=== PATIENT | female | born 1940 | race Caucasian/White ===

== ENCOUNTER 2023-04-04 13:10 | Outpatient (CLI) | payer MEDICARE, BC, SELFPAY | END 2023-04-04 13:11 | disposition home or self-care (01) | LOC: NFLDREF 04-06 10:20 | PROVIDERS: PCP Internal Medicine; Referring Provider Internal Medicine; Visit Provider Internal Medicine | DX: E83.110 Hereditary hemochromatosis (principal) | CPT/HCPCS: 80076; 82728 ==

== ENCOUNTER 2024-02-13 10:45 | Outpatient (CLI) | payer MEDICARE, BC, SELFPAY | END 2024-02-13 10:46 | disposition home or self-care (01) | LOC: NFLDREF 15:11 | PROVIDERS: PCP Internal Medicine; Referring Provider Internal Medicine; Visit Provider Internal Medicine | DX: E83.110 Hereditary hemochromatosis (principal) | CPT/HCPCS: 80053; 82728 ==

== ENCOUNTER 2024-05-01 11:32 | Outpatient (REF) | payer MEDICARE, BC, SELFPAY ==
[2024-05-01 13:58] LABS: Basophils Absolute Auto 0.02 K/uL (0.00-0.30); Basophils Percent Auto 0.3 % (0.0-3.0); Eosinophils Absolute Auto 0.15 K/uL (0.00-0.50); Eosinophils Percent Auto 2.3 % (0.0-7.0); Hematocrit 38.8 % (33.0-51.0); Hemoglobin* 12.8 gm/dL (12.0-16.0); Immature Granulocytes Abs Auto 0.03 K/uL (0.00-0.30); Immature Granulocytes Pct Auto 0.5 %; Lymphocytes Absolute Auto 1.33 K/uL (0.90-2.90); Lymphocytes Percent Auto 20.2 % (20-44); Mean Corpuscular HGB Conc 33 gm/dL (32-36); Mean Corpuscular Hemoglobin 35 pg (26-34); Mean Corpuscular Volume 105 fL (80-100); Neutrophils Absolute Auto 4.47 K/uL (1.7-7.0); Neutrophils Percent Auto 67.7 % (42.0-72.0); Platelet Count* 257 K/uL (140-440); RDW Coefficient of Variation % 12.2 % (11.5-15.5); White Blood Count* 6.59 K/uL (4.50-11.00)
[2024-05-01 14:01] LABS: Slide Review Reflex No
[2024-05-01 14:18] LABS: Iron* 150 ug/dL (37-170)
== END 2024-05-01 11:33 | disposition home or self-care (01) ==
LOC: NPINS 11:32
PROVIDERS: PCP Internal Medicine; Visit Provider Nurse Practitioner Gerontology
DX: D64.9 Anemia, unspecified (principal)
CPT/HCPCS: 82728; 83540; 85025

== ENCOUNTER 2024-07-10 11:54 | Outpatient (REF) | payer MEDICARE, BC, SELFPAY ==
[2024-07-10 13:00] LABS: Basophils Absolute Auto 0.02 K/uL (0.00-0.30); Basophils Percent Auto 0.4 % (0.0-3.0); Eosinophils Absolute Auto 0.29 K/uL (0.00-0.50); Eosinophils Percent Auto 5.7 % (0.0-7.0); Hematocrit 39.3 % (33.0-51.0); Hemoglobin* 12.6 gm/dL (12.0-16.0); Immature Granulocytes Abs Auto 0.02 K/uL (0.00-0.30); Immature Granulocytes Pct Auto 0.4 %; Lymphocytes Absolute Auto 1.14 K/uL (0.90-2.90); Lymphocytes Percent Auto 22.4 % (20-44); Mean Corpuscular HGB Conc 32 gm/dL (32-36); Mean Corpuscular Hemoglobin 34 pg (26-34); Mean Corpuscular Volume 107 fL (80-100); Monocytes Percent Auto 14.3 % (0.0-11.0); Neutrophils Absolute Auto 2.89 K/uL (1.7-7.0); Neutrophils Percent Auto 56.8 % (42.0-72.0); Platelet Count* 286 K/uL (140-440); Red Blood Count 3.69 m/uL (4.00-5.20); White Blood Count* 5.09 K/uL (4.50-11.00)
[2024-07-10 13:03] LABS: Slide Review Reflex No
== END 2024-07-10 11:55 | disposition home or self-care (01) ==
LOC: NPINS 11:54
PROVIDERS: Visit Provider Family Medicine
DX: E83.119 Hemochromatosis, unspecified (principal)
CPT/HCPCS: 85025

== ENCOUNTER 2024-08-10 09:29 | Outpatient (REF) | payer MEDICARE, BC, SELFPAY ==
[2024-08-10 09:51] LABS: Appearance Urine Clear (Clear); Bilirubin Urine Negative (Negative); Blood Urine Trace-intact (Negative); Color Urine Yellow (Yellow); Glucose Urine Negative (Negative); Ketones Urine Negative (Negative); Leukocyte Esterase Urine 2+ (Negative); Nitrite Urine Positive (Negative); Protein Urine Negative (Negative); Urobilinogen Urine 0.2 (0.2-1.0)
[2024-08-10 10:04] LABS: Bacteria Urine Many; RBC Urine 0-2 (0-2); Squamous Epithelial Cell Urine Few (None-Few)
== END 2024-08-10 09:30 | disposition home or self-care (01) ==
LOC: NPINS 09:29
PROVIDERS: Visit Provider Nurse Practitioner Gerontology
DX: R68.89 Other general symptoms and signs (principal)
CPT/HCPCS: 81001; 87086; 87186

== ENCOUNTER 2024-11-19 11:03 | Outpatient (CLI) | payer MEDICARE, BC, SELFPAY | END 2024-11-19 11:04 | disposition home or self-care (01) | LOC: AMB 11-20 10:44 | PROVIDERS: Visit Provider Student in an Organized Health Care Education/Training Program | DX: S79.912A Unspecified injury of left hip, initial encounter (principal); W01.198A Fall on same level from slipping, tripping and stumbling with subsequent striking against other object, initial encounter; Y92.009 Unspecified place in unspecified non-institutional (private) residence as the place of occurrence of the external cause | CPT/HCPCS: A0425; A0429 ==

== ENCOUNTER 2024-11-19 11:28 | Inpatient (IN) | payer MEDICARE, BC, SELFPAY ==
[2024-11-19] VITALS (22 sets, daily range): BP systolic 101–188; BP diastolic 68–97; PULSE 57–68; RESP 12–33; TEMP 36.4–36.6; O2SAT 84–100; BMI 25.9
--- NOTE | 2024-11-19 | CRLHL7_ITS ---
For Patients: As a result of the Century Cures Act, medical imaging exams and procedure reports are released immediately into your electronic medical record. You may view this report before your referring provider. If you have questions, please contact your health care provider. INDICATION: Cough. Fall. TECHNIQUE: Chest 1 views. No acute abnormalities COMPARISON: None FINDINGS: Limitations: Underpenetrated Tubes and devices: None. Lungs: Lungs are clear. Prominent bronchovascular markings possibly due to under penetration. No infiltrates. Pleura: No pleural effusion. No pneumothorax. Heart: Heart size and vasculature are normal in caliber and appearance. Karin and Mediastinum: No enlargement. Bones and soft tissues: No significant findings. IMPRESSION: Suboptimal technique. No infiltrate or mass. Dictated by Derrick Rodriguez MD @ 11/19/2024 12:45:31 PM (Electronically Signed)
--- NOTE | 2024-11-19 11:33 | ED_ITS ---
HPI - General Adult General Date Seen: 11/19/24 Chief complaint: Extremity Pain/Injury, Lower Stated complaint: leg pain Time Seen by Provider: 11/19/24 11:33 History of Present Illness HPI narrative: This is a pleasant 84-year-old female brought to the ER this morning by EMS from her memory care you for evaluation of right thumb leg and thigh and hip pain. History from paramedics is that she was sleeping in a chair. She woke up kind of abruptly and tried to get up. She lost her balance when she stood up and then fell onto her right side. Most of her weight went onto her right hip but she also probably did hit her head. She denies loss of consciousness or headache. She was not able to get up due to severe right hip and leg pain so 911 was called. EMS does not note any obvious deformity or foreshortening or rotation of her leg. No obvious crepitus. Vitals were stable. Patient is not anticoagulated. EMS established an IV in her left AC but have not had time to administer any meds yet. Her son is aware and will be coming here to the ER. He is actually a doctor at the [facility], Dr. Mike. 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 She is on medications for but does not know the name. She does not know what other meds she is on. 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 Med list includes aspirin 81 mg, lisinopril, citalopram, estradiol cream, psyllium, per type pain. No other anticoagulant. History from the patient is that she fell. She is having lot of pain in her right leg. She does not want to move it. She does not think she fainted. She remembers falling. She thinks she just lost her balance. She is not able to recall her meds. She know she has a patch on she thinks is for hemochromatosis Related Data Home Medications ?Medication ?Instructions ?Recorded ?Confirmed aspirin 81 mg tablet,delayed 162 mg PO DAILY 03/22/22 02/24/24 release psyllium husk 3.4 gram/5.4 gram 1 tbsp PO QDAY 10/08/22 02/24/24 oral powder (Metamucil) Previous Rx's ?Medication ?Instructions ?Recorded estradiol 0.01% (0.1 mg/gram) 0.5 g vaginal 2XW #42.5 grams 07/27/23 vaginal cream (Estrace) citalopram 20 mg tablet 20 mg PO DAILY #90 tabs 02/14/24 lisinopril 40 mg tablet 40 mg PO QDAY #90 tabs 02/14/24 quetiapine 25 mg tablet (Seroquel) 12.5 mg (1/2 x 25 mg) PO QAM #60 02/14/24 tabs Allergies Allergy/AdvReac Type Severity Reaction Status Date / Time No Known Allergies Allergy Unknown Verified 11/19/24 11:38 PFSH PFS Surgical History (Updated 03/03/22 @ 13:20 by Ambika Lira) History of total abdominal hysterectomy and bilateral salpingo-oophorectomy ?Z90.710 - Acquired absence of both cervix and uterus (ICD-10) ?Z90.722 - Acquired absence of ovaries, bilateral (ICD-10) ?Z90.79 - Acquired absence of other genital organ(s) (ICD-10) History of cholecystectomy ?Z90.49 - Acquired absence of other specified parts of digestive tract (ICD- 10) Social History (Updated 02/13/24 @ 08:59 by Sheila Varela ~ [facility]) What is your current living situation?: I presently have a place to live Problems where you live: no known problems In the past 12 months, utilities in danger of being shut off: no In past 12 months, lack of transportation kept you from medical appts, meetings, work, or getting things needed for daily living: no In the past 12 mos, have been you worried that your food would run out before you had money to buy more?: never true In the past 12 mos, the food you bought just didn't last and you didn't have money to buy more?: never true Smoking Status: Former smoker How often do you have a drink containing alcohol: never How often do you have six or more drinks on one occasion: Never AUDIT-C Alcohol total score: 0 Non-prescribed substance use: denies use How often does anyone, including family, friends and others, physically hurt you : never How often does anyone, including family, friends and others, insult or talk down to you: never How often does anyone, including family, friends and others, threaten you with harm: never How often does anyone, including family, friends and others, scream or curse at you: never service: No Exam Const: Vital Signs, click to edit/add: Vital Signs - 24 hr 11/19/24 11:34 11/19/24 12:24 11/19/24 12:30 Temperature 97.8 F Pulse Rate 58 L 57 L Pulse Rate [Right Pulse Oximeter] 63 Respiratory Rate 18 Blood Pressure Blood Pressure [Ri ght Upper Arm] 173/82 H Pulse Oximetry 96 98 99 Oxygen Delivery Me thod Room Air 11/19/24 12:33 Temperature Pulse Rate 59 L Pulse Rate [Right Pulse Oximeter] Respiratory Rate Blood Pressure 173/82 H Blood Pressure [Ri ght Upper Arm] Pulse Oximetry 99 Oxygen Delivery Me thod Course Vital Signs Vital signs: Initial Vital Signs Temperature 97.8 F 11/19/24 11:34 Temperature Source Temporal Artery Scan 11/19/24 11:34 Pulse Rate 63 11/19/24 11:34 Pulse Rhythm Regular 11/19/24 11:34 Pulse Strength 3+ Normal 11/19/24 11:34 Respiratory Rate 18 11/19/24 11:34 Blood Pressure 173/82 H 11/19/24 11:34 Blood Pressure Mean 112 H 11/19/24 11:34 Blood Pressure Position Supine 11/19/24 11:34 Pulse Oximetry 96 11/19/24 11:34 Oxygen Delivery Method Room Air 11/19/24 11:34 Vital Signs Temperature 97.8 F 11/19/24 11:34 Pulse Rate 63 11/19/24 11:34 Respiratory Rate 18 11/19/24 11:34 Blood Pressure 173/82 H 11/19/24 11:34 Pulse Oximetry 96 11/19/24 11:34 Oxygen Delivery Method Room Air 11/19/24 11:34 Temperature 97.8 F 11/19/24 11:34 Pulse Rate 59 L 11/19/24 12:33 Respiratory Rate 18 11/19/24 11:34 Blood Pressure 173/82 H 11/19/24 12:33 Pulse Oximetry 99 11/19/24 12:33 Oxygen Delivery Method Room Air 11/19/24 11:34 Medications Administered Medications: Generic Name Dose Route Start Last Admin Trade Name Brenda PRN Reason Stop Dose Admin Hydromorphone HCl 0.5 mg 11/19/24 12:43 11/19/24 12:50 Hydromorphone 0.5 Mg/0.5 Ml Inj IVP 0.5 mg Q1H PRN Administration Pain Discontinued Medications Generic Name Dose Route Start Last Admin Trade Name Brenda PRN Reason Stop Dose Admin Fentanyl 50 mcg 11/19/24 11:37 11/19/24 11:49 Fentanyl 100 Mcg/2 Ml Inj IVP 11/19/24 11:38 50 mcg ONCE ONE Administration Ondansetron HCl 4 mg 11/19/24 11:37 11/19/24 11:49 Ondansetron 2 Mg/Ml Inj IVP 11/19/24 11:38 4 mg ONCE ONE Administration Medical Decision Making MDM Narrative Medical decision making narrative: Very pleasant 84-year-old female brought to the ER today from [facility] for evaluation of a mechanical ground level fall with right leg pain. On clinical exam she really is having primarily right hip and proximal femur pain. She may have also hit her head during the fall. 1. CT head and C-spine are normal. No evidence for any acute traumatic injury. She is not anticoagulated. 2. X-rays of her pelvis and right hip confirm a nondisplaced intertrochanteric fracture affecting the right proximal femur. She was quite uncomfortable when she arrived by EMS. We administered 50 mcg IV prior to obtaining x-rays and Dilaudid for additional analgesia there after. She is more comfortable now. Discussed with orthopedics, Dr. Ko. He will agree to consult on the patient and plans for operative fixation likely tomorrow morning. Discussed with hospitalist, Dr. Salinas who graciously agreed to admit for pain control and medical management and overnight care prior to going to the OR. Also place consult for anesthesia to consider local nerve block for analgesia. 3. EKG shows sinus rhythm. No ischemia. Labs showed normal hemoglobin, normal white count, normal platelet count. Electrolytes and kidney function normal. Her son, Jn Mike, updated by phone. He will be coming over to see her this afternoon when he finishes up this afternoon clinic. Lab Data Labs: Lab Results 11/19/24 Range/Units 12:41 WBC 7.33 (4.50-11.00) K/uL RBC 3.74 L (4.00-5.20) m/uL Hgb 13.0 (12.0-16.0) gm/dL Hct 38.4 (33.0-51.0) % MCV 103 H (80-100) fL MCH 35 H (26-34) pg MCHC 34 (32-36) gm/dL RDW Coeff of Michael 12.6 (11.5-15.5) % Plt Count 300 (140-440) K/uL Neut % (Auto) 72.7 H (42.0-72.0) % Lymph % (Auto) 15.6 L (20-44) % [place] % (Auto) 8.7 (0.0-11.0) % Eos % (Auto) 2.5 (0.0-7.0) % Baso % (Auto) 0.1 (0.0-3.0) % Neut # (Auto) 5.30 (1.7-7.0) K/uL Lymph # (Auto) 1.10 (0.90-2.90) K/uL [place] # (Auto) 0.60 (0.00-0.90) K/UL Eos # (Auto) 0.18 (0.00-0.50) K/uL Baso # (Auto) 0.01 (0.00-0.30) K/uL Abs Immat Gran (auto) 0.03 (0.00-0.30) K/uL Imm/Tot Granulo (auto) 0.4 % Sodium 132 L (135-149) mmol/L Potassium 4.8 (3.6-5.1) mmol/L Chloride 101 (96-114) mmol/L Carbon Dioxide 21 (20-32) mmol/L Anion Gap 10 (7-15) mEq/L BUN 23 (7-30) mg/dL Creatinine 0.9 (0.5-1.5) mg/dL Estimated GFR 64 ml/min Glucose 108 (60-115) mg/dL Calcium 9.8 (8.4-10.6) mg/dL Imaging Data XR R hip/pelvis: Attestation: I have reviewed the pertinent imaging results. My impression: Inter trochanteric fracture, avulsion of the lesser trochanter Radiologist's impression: Impression: 1. Decreased bone mineral density. 2. Moderate arthritic changes at both hip joints. 3. Right intertrochanteric hip fracture. No additional fractures noted CT scan - head: Attestation: I have reviewed the pertinent imaging results. Radiologist's impression: Impression: 1. Age-related changes of the brain without acute intracranial abnormality. CT C spine: Attestation: I have reviewed the pertinent imaging results. Radiologist's impression: Impression: Moderate degenerative changes of the cervical spine without acute osseous abnormality. Chest x-ray: Attestation: I have reviewed the pertinent imaging results. Radiologist's impression: IMPRESSION: Suboptimal technique. No infiltrate or mass. ECG Data Attestation: I personally reviewed and interpreted this ECG as follows: Interpretation: Normal sinus rhythm Rate: 64 MO: 160 QRS axis: Normal axis. No pathologic Q-waves ST segment/T wave: No ST segment elevation or depression QTc: 418 Discharge Plan Discharge Clinical Impression: Intertrochanteric fracture, Fall Prescriptions: No Action Metamucil 3.4 gram/5.4 gram powder 1 tbsp PO QDAY Rx Instructions: mix into at least 8 oz of water or juice before administering lisinopril 40 mg tablet 40 mg PO QDAY Qty: 90 3RF citalopram 20 mg tablet 20 mg PO DAILY Qty: 90 3RF quetiapine [Seroquel] 25 mg tablet 12.5 mg PO QAM Qty: 60 0RF aspirin 81 mg tablet,delayed release (DR/EC) 162 mg PO DAILY estradiol [Estrace] 0.01 % (0.1 mg/gram) cream 0.5 g vaginal 2XW Qty: 42.5 3RF Rx Instructions: Use nightly for 2 weeks, then twice weekly. May apply with finger. Follow Up/Referrals: Provider,Not a Local [Primary Care Provider] -
--- NOTE | 2024-11-19 11:36 | CRLHL7_ITS ---
For Patients: As a result of the Century Cures Act, medical imaging exams and procedure reports are released immediately into your electronic medical record. You may view this report before your referring provider. If you have questions, please contact your health care provider. Indication: Fall, hit head and neck Technique: Volumetric multidetector CT images of the cervical spine were obtained without the administration of IV contrast. Comparison: None available. Findings: The cervical vertebral body heights are grossly maintained with minimal endplate Schmorl`s defects and subchondral cystic changes. There is straightening of the normal cervical lordosis with anterolisthesis of C4 on C5. There is no displaced fracture or dislocation. There is moderate degenerative change of the cervical spine with disc height loss and marginal osteophyte formation. Degenerative changes of the atlantoaxial joint are appreciated. There is moderate to severe facet arthrosis. The paraspinous soft tissues are grossly within normal limits. Impression: Moderate degenerative changes of the cervical spine without acute osseous abnormality. Please note that all CT scans at this facility use dose modulation, iterative reconstruction, and/or weight-based dosing when appropriate to reduce radiation dose to as low as reasonably achievable. Dictated by Fred Osborne MD @ 11/19/2024 12:42:35 PM (Electronically Signed)
--- NOTE | 2024-11-19 11:36 | CRLHL7_ITS ---
For Patients: As a result of the Cures Act, medical imaging exams and procedure reports are released immediately into your electronic medical record. You may view this report before your referring provider. If you have questions, please contact your health care provider. Indication: Injury Technique: An AP view of the pelvis was obtained as well as AP and lateral views of the right hip. Comparison: None Findings: As described below Impression: 1. Decreased bone mineral density. 2. Moderate arthritic changes at both hip joints. 3. Right intertrochanteric hip fracture. No additional fractures noted Dictated by Justyn Mliler MD @ 11/19/2024 12:48:02 PM (Electronically Signed)
--- NOTE | 2024-11-19 11:36 | CRLHL7_ITS ---
For Patients: As a result of the Century Cures Act, medical imaging exams and procedure reports are released immediately into your electronic medical record. You may view this report before your referring provider. If you have questions, please contact your health care provider. Indication: Fall, head trauma Technique: Volumetric multidetector CT images of the head were obtained without the administration of low osmolar intravenous contrast. Comparison: MRI brain March 10, 2021 Findings: There is no intra-axial or extra-axial fluid collection. There is no mass effect or midline shift. There is age-related cortical atrophy with mild sulcal widening and ex vacuo dilatation of the lateral ventricles. There are chronic small vessel disease changes in the subcortical and periventricular white matter without lost lockett-white differentiation. The orbits and their contents are grossly within normal limits. The bony calvarium is grossly intact. The paranasal sinuses are clear. The mastoid air cells are well aerated. Impression: 1. Age-related changes of the brain without acute intracranial abnormality. Please note that all CT scans at this facility use dose modulation, iterative reconstruction, and/or weight-based dosing when appropriate to reduce radiation dose to as low as reasonably achievable. Dictated by Fred Osborne MD @ 11/19/2024 12:39:16 PM (Electronically Signed)
[2024-11-19] MEDS: ONDANSETRON 2 MG/ML inj 4 MG IVP (11:49)
[2024-11-19] MEDS: fentaNYL 100 MCG/2 ML inj 50 MCG IVP (11:49)
[2024-11-19] MEDS: HYDROmorphone 0.5 mg/0.5 ml inj IVP ×2 (12:50→20:57)
[2024-11-19 12:59] LABS: Basophils Absolute Auto 0.01 K/uL (0.00-0.30); Basophils Percent Auto 0.1 % (0.0-3.0); Eosinophils Absolute Auto 0.18 K/uL (0.00-0.50); Eosinophils Percent Auto 2.5 % (0.0-7.0); Hematocrit 38.4 % (33.0-51.0); Immature Granulocytes Abs Auto 0.03 K/uL (0.00-0.30); Immature Granulocytes Pct Auto 0.4 %; Lymphocytes Percent Auto 15.6 % (20-44); Mean Corpuscular HGB Conc 34 gm/dL (32-36); Mean Corpuscular Hemoglobin 35 pg (26-34); Mean Corpuscular Volume 103 fL (80-100); Monocytes Percent Auto 8.7 % (0.0-11.0); Neutrophils Percent Auto 72.7 % (42.0-72.0); Platelet Count* 300 K/uL (140-440); RDW Coefficient of Variation % 12.6 % (11.5-15.5); Red Blood Count 3.74 m/uL (4.00-5.20); White Blood Count* 7.33 K/uL (4.50-11.00)
[2024-11-19 13:03] LABS: Slide Review Reflex No
[2024-11-19 13:10] LABS: Chloride* 101 mmol/L (96-114); Sodium* 132 mmol/L (135-149)
[2024-11-19 13:11] LABS: Potassium* 4.8 mmol/L (3.6-5.1)
[2024-11-19 13:13] LABS: Blood Urea Nitrogen* 23 mg/dL (7-30); Creatinine* 0.9 mg/dL (0.5-1.5); Estimated Glomerular Filt Rate 64 ml/min
[2024-11-19 13:14] LABS: Anion Gap 10 mEq/L (7-15); Calcium* 9.8 mg/dL (8.4-10.6); Carbon Dioxide* 21 mmol/L (20-32); Glucose* 108 mg/dL (60-115)
--- NOTE | 2024-11-19 14:06 | W.PM.NB ---
Nerve Block Nerve Block Time Seen by Provider: 13:45 Date Seen: 11/19/24 Type of block requested by surgeon for post-operative analgesia: JALEEL/LFCN Side: right Time out performed: Yes Verification of patient name: Yes Verification of date of : Yes Site marking: site marked Name of person performing procedure: Michael Swan Continuous monitoring Was continuous monitoring of O2 sat, B/P, change room attendant, recorded every 15 minutes?: Yes Procedure Ultrasound guided. Images saved: Yes Medications given in 5ml increments after negative aspiration: Ropivicaine %: 0.5 mL: 20 Needle gauge: 20 Precedex (mcg): 25 Patient tolerated procedure well: Yes Block Charges Block Charge (with Pro Fee): Femoral Nerve Use of Ultrasound Machine for Block: Yes- US Guidance/pain block
--- OUTSIDE RECORDS SUMMARY | 2024-11-19 14:15 | XMS_ITS | Clinical Summary ---
Author Organization [facility] Address [address] [place] [id number] Care Team Providers Care Chlorobutadiene Scrubber Operator Name Role Phone Beverley Miles MD Primary Care Provider [phone] Allergies Active Allergy Reactions Criticality Noted Date Comments Amitriptyline Rash 08/10/2010 Doxepin Rash 08/10/2010 Medications aspirin chewable 81 mg chewable tablet Take 162 mg by mouth at bedtime. 60 tablet 0 05/19/20 10 Active polyethylene glycoL (CLEARLAX) 17 gram/dose powder Take 1 scoop. by mouth once daily. Active oxyquinoline-sod.l auryl sulfat (TRIMO-BYRNE) 0.025-0.01 % vaginal gel Insert 0.5 Applicatorfuls into the vagina every Tuesday and Tuesday. At bedtime Active omeprazole (PRILOSEC) 20 mg Delayed-Release capsuleIndications :Gastroesophageal reflux disease, esophagitis presence not specified Take 1 capsule by mouth once daily before a meal. 30 capsule 07/17/20 19 Active Psyllium Husk-Sucrose (METAMUCIL, WITH SUGAR,) 3.4 gram/7 gram powd Take by mouth once daily. 1 tablespoon Active metoclopramide HCl (REGLAN) 5 mg/5 mL solution Take 10 mg by mouth 4 times daily before meals and at bedtime. 03/04/20 20 Active ondansetron (ZOFRAN ODT) 4 mg disintegrating tablet Take 4 mg by mouth every 8 hours if needed. 11/07/19 20 Active metoclopramide HCl (REGLAN) 5 mg tabletIndications: Urinary tract infection without hematuria, site unspecified Take 1 tablet by mouth every 6 hours if needed for Nausea/Vomiting. 15 tablet 08/09/19 21 Active lidocaine 5% (Lidoderm) 5 % patchIndications:C hest wall pain Apply 1 patch to painful area of skin for up to 12 hours within a 24-hour period. 30 Patch 3 12/10/19 21 Active metoprolol tartrate (LOPRESSOR) 25 mg tabletIndications: Essential hypertension, benign TAKE ONE TABLET BY MOUTH TWICE DAILY 180 Tablet 3 02/14/20 21 Active nitroglycerin (NITROSTAT) 0.4 mg sublingual tabletIndications: Coronary artery disease,Elevated cholesterol Place 1 Tablet (0.4 mg) under the tongue every 5 minutes if needed for Chest Pain. 25 Tablet 1 08/17/19 22 Active lisinopriL (PRINIVIL; ZESTRIL) 40 mg tabletIndications: Coronary artery disease TAKE ONE TABLET BY MOUTH ONE TIME DAILY 90 Tablet 1 08/11/19 23 Active Active Problems Problem Noted Date Diagnosed Date Essential hypertension 01/24/2020 Other hemochromatosis 07/18/2019 Vaginal vault prolapse after hysterectomy 2017 Overview (11/17/2020): Managed with vaginal pessary. Peripheral neuropathy 11/20/2014 IBS (irritable bowel syndrome) 07/18/2012 Lumbar spondylosis 05/15/2012 Jaw pain 08/23/2011 Esophageal reflux 12/24/2010 Essential tremor 06/11/2009 Overview (11/17/2020): Overview: Essential and other specified forms of tremor (HRC) Nausea 03/08/2009 Dyslipidemia 07/17/2008 Coronary artery disease due to lipid rich plaque Overview (11/17/2020): Normal left ventricular ejection fraction 69% 2006: inferior wall [place]--> mid RCA stent 2006: staged mid LAD stent 2012: the LAD and RCA stents are patent stent(s) 2019: stress MRI shows no evidence of ischemia Resolved Problems Problem Noted Date Diagnosed Date Resolved Date Chest pain, unspecified 08/11/201011/06 Numbness and tingling 03/08/20092010 Obesity 08/25/2005 11/17/2020 Overview (11/17/2020): Overview: Epic Myocardial infarction 2010 Immunizations Immunization Administration Dates Next Due Influenza A (H1N1), Inactiva pan (Age >=3 Years) 04/22/2010 Influenza, IIV3 (Age >=3 years) 05/10/2011,05/08,05/20/2006 Pneumococcal Poly,23-Valent (Pneumovax) 10/22/19 08 Family History Medical History Relation Name Comments Other Brother 3 Silvino history of rheu matic fever, alive and well otherwise Other Father Alzheimers, Par kinsons Cancer Mother Hypertension Mother Osteoporosis Mother Other Sister 2 of yanira ors on brain Relation Name Status Comments Brother 1 Alive Brother 2 Alive Brother 3 Silvino Father Mother Sister 1 Sister 2 Social History Tobacco Use Types Packs/Day Years Used Date Smoking Tobacco: Former Cigarettes Q uit: 08/08/1999 Smokeless Tobacco: Never Tobacco Cessation:Counseling Given: Yes Alcohol Use Standard Drinks/Week Comments No 0 (1 standard drink = 0.6 oz pur e alcohol) Social Connections Answer Date Recorded Frequency of Communication with Friends and Fami ly Not on file 08/08/2021 Financial Resource Strain Answer Date R ecorded Difficulty of Paying Living Expenses Not on file 08/08/2021 Difficulty of Paying Living Expenses Not on file 08/08/2021 Comments No Sex and Gender Information Value Date Recorded Sex Assigned at Not on file Legal Sex Female 6:13 AM [employer] Gender Identity Not on file Sexual Orientation Not on file Obstetrics History Last Filed Vital Signs Vital Sign Reading Time Taken Comments Blood Pressure 173/78 12/10/2020 12:20 PM CDT Pulse 52 06/16/2023 2:34 PM [facility] Temperature 36.8 C (98.2 F) 06/16/2023 2:34 PM [facility] Respiratory Rate 18 12/10/2020 12:20 PM CDT Oxygen Saturation 98% 06/16/2023 2:34 PM [facility] Inhaled Oxygen Concentration - - Weight 62.4 kg (137 lb 9.6 oz) 06/16/2023 2:34 P M [facility] Height 172.7 cm (5' 8) 12/09/2020 9:38 AM CDT Body Mass Index 20.92 12/09/2020 9:38 AM CDT Plan of Treatment Health Maintenance Due Date Last Done Comments Tdap 1953 Depression screening for age 12+ 1954 Tetanus booster 1962 Zoster (shingles) series for age 50+ (1 of 2) 1992 DEXA/DXA scan for age 65+ 2007 Medicare Wellness for age 65+ 2007 Pneumococcal series for age 50+ (2 of 2 - PCV) 10/21/2008 10/22/2007 RSV vaccine for adults or (1 - 1-dose 75+ series) 2017 BMI (ht and wt on same day) for age 18+ 12/09/2021 12/09/2020, 11/17/2020, 03/31/2020, Additional history exists COVID-19 vaccine series ( season) 2024 05/05/2023, 12/08/2022, 04/14/2022, Additional history exists Influenza Vaccine (Season Ended) 2025 05/10/2011, 05/08/2007, 05/20/2006 Insurance MEDICARE PART B HB ONLY MEDICARE PART A HB ONLY MEDICARE PB ONLY [employer] [place] [employer] EMP Advance Directives * Full Code (Latest Code Status on File) Date Activated Date Inactivated Comments 01/24/2020 5:57 AM 01/24/2020 6:30 PM * Full Code Date Activated Date Inactivated Comments 07/15/2019 6:09 PM 07/17/2019 6:13 PM Question Answer Comments Code Status Discussion: Not Discussed * Full Code Date Activated Date Inactivated Comments 08/23/2011 5:55 PM 08/24/2011 9:23 PM * Full Code Date Activated Date Inactivated Comments 08/10/2010 7:12 PM 08/11/2010 6:57 PM * Full Code Date Activated Date Inactivated Comments 03/08/2009 11:55 AM 03/09/2009 2:36 PM Care Teams Chlorobutadiene Scrubber Operator Relationship Specialty Start Date End Date Beverley Miles MD [address] [place] [id number] PCP - General Internal Medicine 06/16/23
--- NOTE | 2024-11-19 14:51 | PM.IMHP1 ---
Assessment and Plan Assessment and plan (1) Fall: Problem comment: - Mechanical - PT/OT evaluation after surgery Status: Acute (2) Intertrochanteric fracture: Problem comment: - right - planning surgery tomorrow (Maikel), ortho is aware - NPO after midnight, will hold off on pharmacologic VTE prophylaxis anticipation of surgery - EKG and chest x-ray are reviewed. Patient has a history of bradycardia, but her rates here are high 50s to low 60s. Greatest risk factor is age. No further workup needed prior to planned surgery. - Anesthesia did hip block in ER for pain. I have ordered APAP, oral oxycodone prn, and IV hydromorphone prn breakthrough pain. Status: Acute (3) Essential hypertension: Problem comment: - Amlodipine started 10/27 (metoprolol stopped again by patient/family 02/26), amlodipine stopped 02/28 due to orthostasis and frailty (only on lisinopril) - BP elevated, likely due to pain, anxiety. 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 - 11/19/24 Hgb 13. Since she has a long bone fracture, she will likely have some blood loss. Will start gentle IVF. Status: Chronic (5) Coronary artery disease: Problem comment: s/p inferior wall M.I. and cardiac stenting (mid RCA and staged mid LAD stent) 2005, metoprolol stopped 05/28 due to bradycardia Status: Chronic (6) Generalized anxiety disorder: Problem comment: citalopram started 04/28, citalopram increased 02/28 (and morning, low-dose Seroquel started 02/24 for for agitation related to the anxiety/cognitive impairment), no longer on citalopram, now takes sertraline - Continue sertraline and quetiapine Status: Chronic Hospitalist- H&P: HPI History of Present Illness Date Seen: 11/19/24 Chief complaint: leg pain Narrative: Daiana Mike is a 84 year old female who lives at memory care at [facility] who fell upon getting up from a nap in a chair today. She tells me her shoes felt slippery, which caused her to twist and fall. She denies hitting her head. She is not a good historian and repeated various information, stories and phrases frequently. Her son, Dr. Rolan Mike, and his came around 1800. I went back to the room and spoke with them. They were agreeable with the plan. Review of Systems Status of ROS: Reports: unobtainable due to medical condition (conitive impairment) [facility] Medical History (Updated 11/19/24 @ 18:58 by Lenore Lindsey MD) Mild cognitive impairment ?G31.84 - Mild cognitive impairment of uncertain or unknown etiology (ICD-10) Bradycardia ?R00.1 - Bradycardia, unspecified (ICD-10) Chest wall pain ?R07.89 - Other chest pain (ICD-10) Chronic nausea ?R11.0 - Nausea (ICD-10) Coronary artery disease ?I25.10 - Atherosclerotic heart disease of [place] coronary artery without angina pectoris (ICD-10) Generalized anxiety disorder ?F41.1 - Generalized anxiety disorder (ICD-10) Pelvic organ prolapse quantification stage 4 cystocele ?N81.10 - Cystocele, unspecified (ICD-10) Hereditary hemochromatosis ?E83.110 - Hereditary hemochromatosis (ICD-10) Subjective memory complaints ?R41.89 - Other symptoms and signs involving cognitive functions and awareness (ICD-10) Essential hypertension ?I10 - Essential (primary) hypertension (ICD-10) Vaginal erosion secondary to pessary use ?T83.89XA - Other specified complication of genitourinary prosthetic devices, implants and grafts, initial encounter (ICD-10) ?N89.8 - Other specified noninflammatory disorders of vagina (ICD-10) Surgical History History of total abdominal hysterectomy and bilateral salpingo-oophorectomy ?Z90.710 - Acquired absence of both cervix and uterus (ICD-10) ?Z90.722 - Acquired absence of ovaries, bilateral (ICD-10) ?Z90.79 - Acquired absence of other genital organ(s) (ICD-10) History of cholecystectomy ?Z90.49 - Acquired absence of other specified parts of digestive tract (ICD-10) Family History (Updated 11/19/24 @ 14:27 by Lenore Lindsey MD) Brother Stroke Social History (Updated 11/19/24 @ 15:43 by Lenore Lindsey MD) Narrative: Memory care at [facility]. Her son is Jn Rashid, a family medicine physician at the [employer]. She is (her has dementia). The patient is retired. She has 2 children. Alcohol use is none. She is a nonsmoker. POLST from 2023 states she is DNR, selective treatment, no feeding tube, IV antibiotics and meds are okay. What is your current living situation?: I presently have a place to live Problems where you live: no known problems In the past 12 months, utilities in danger of being shut off: no In past 12 months, lack of transportation kept you from medical appts, meetings, work, or getting things needed for daily living: no In the past 12 mos, have been you worried that your food would run out before you had money to buy more?: never true In the past 12 mos, the food you bought just didn't last and you didn't have money to buy more?: never true Smoking Status: Former smoker How often do you have a drink containing alcohol: never How often do you have six or more drinks on one occasion: Never AUDIT-C Alcohol total score: 0 Non-prescribed substance use: denies use How often does anyone, including family, friends and others, physically hurt you: never How often does anyone, including family, friends and others, insult or talk down to you: never How often does anyone, including family, friends and others, threaten you with harm: never How often does anyone, including family, friends and others, scream or curse at you: never service: No Meds Home Medications and Allergies Home Medications ?Medication ?Instructions ?Recorded ?Confirmed ?Type aspirin 81 mg tablet,delayed 162 mg PO HS 03/22/22 11/19/24 History release psyllium husk 3.4 gram/5.4 gram 1 tbsp PO QDAY 10/08/22 11/19/24 History oral powder (Metamucil) acetaminophen 500 mg tablet 1,000 mg PO TID PRN 11/19/24 11/19/24 History glycerin 1 drp ophthalmic (eye) BID 11/19/24 11/19/24 History lidocaine 4 % topical patch 1 patch topical Q24H 11/19/24 11/19/24 History (Aspercreme (lidocaine)) lisinopril 40 mg tablet 40 mg PO HS 11/19/24 11/19/24 History polyethylene glycol 3350 17 gram 17 g PO DAILY 11/19/24 11/19/24 History oral powder packet (Gavilax) quetiapine 25 mg tablet (Seroquel) 25 mg PO BID 11/19/24 11/19/24 History sennosides 8.6 mg tablet (senna) 8.6 mg PO BID 11/19/24 11/19/24 History sertraline 50 mg tablet 50 mg PO DAILY 11/19/24 11/19/24 History sodium chloride 0.65 % nasal spray 2 spray intranasal BID PRN 11/19/24 11/19/24 History aerosol (Deep Sea Nasal) Allergies Allergy/AdvReac Type Severity Reaction Status Date / Time No Known Allergies Allergy Unknown Verified 11/19/24 11:38 Exam Narrative: Exam Narrative: General: Mildly anxious, no respiratory distress. Pleasant. Awake, alert, oriented to self and somewhat to place. Her nurse had just reoriented her to place and told her that she was at [facility]. I asked her where she was about 10 minutes later and she said she was at [place] and then after sometime said ?maybe the clinic,and when I told her she was at the hospital she said, ?yes that's it. HEENT: Normocephalic atraumatic, pupils equally round and reactive to light and accommodation. Oropharynx clear. Mucous membranes are moist. No cervical lymphadenopathy, thyromegaly or carotid bruits. No JVD. Cardiovascular: Regular rate and rhythm. No murmurs, gallops, or rubs. Chest: No increased work of breathing. Clear to auscultation bilaterally. No crackles or wheezes. Abdomen: Bowel sounds present. Soft, nondistended, nontender. No hepatosplenomegaly or masses. Extremities: Mild ecchymosis of superior right hip. Right lower extremity is shortened and externally rotated. No edema, no cyanosis or clubbing. Skin: No jaundice, no pallor, no rashes. Neuro: Grossly intact. No focal deficits. Const: Vital Signs, click to edit/add: Vital Signs - 24 hr 11/19/24 11:34 11/19/24 12:24 11/19/24 12:30 Temperature 97.8 F Pulse Rate 58 L 57 L Pulse Rate [Right Pulse Oximeter] 63 Respiratory Rate 18 Blood Pressure Blood Pressure [Ri ght Upper Arm] 173/82 H Pulse Oximetry 96 98 99 Oxygen Delivery Me thod Room Air 11/19/24 12:33 11/19/24 12:34 11/19/24 12:45 Temperature Pulse Rate 59 L 61 60 Pulse Rate [Right Pulse Oximeter] Respiratory Rate Blood Pressure 173/82 H Blood Pressure [Ri ght Upper Arm] Pulse Oximetry 99 99 96 Oxygen Delivery Me thod 11/19/24 12:54 11/19/24 13:00 11/19/24 13:15 Temperature Pulse Rate 66 59 L 61 Pulse Rate [Right Pulse Oximeter] Respiratory Rate 18 Blood Pressure 188/97 H Blood Pressure [Ri ght Upper Arm] Pulse Oximetry 95 99 96 Oxygen Delivery Me thod 11/19/24 13:30 11/19/24 13:45 11/19/24 13:50 Temperature Pulse Rate 61 62 63 Pulse Rate [Right Pulse Oximeter] Respiratory Rate 12 Blood Pressure 181/96 H Blood Pressure [Ri ght Upper Arm] Pulse Oximetry 99 100 96 Oxygen Delivery Me thod 11/19/24 13:53 11/19/24 13:54 11/19/24 13:57 Temperature Pulse Rate 65 66 68 Pulse Rate [Right Pulse Oximeter] Respiratory Rate 20 19 20 Blood Pressure 101/68 Blood Pressure [Ri ght Upper Arm] Pulse Oximetry 97 92 93 Oxygen Delivery Me thod 11/19/24 13:58 11/19/24 13:59 11/19/24 14:00 Temperature Pulse Rate 66 64 64 Pulse Rate [Right Pulse Oximeter] Respiratory Rate 33 H 15 20 Blood Pressure 163/97 H Blood Pressure [Ri ght Upper Arm] Pulse Oximetry 95 98 96 Oxygen Delivery Me thod 11/19/24 14:02 Temperature Pulse Rate 62 Pulse Rate [Right Pulse Oximeter] Respiratory Rate 18 Blood Pressure 174/72 H Blood Pressure [Ri ght Upper Arm] Pulse Oximetry 93 Oxygen Delivery Me thod Room Air Hospitalist - H&P: Result Labs Labs: Short CBC 11/19/24 Range/Units 12:41 WBC 7.33 (4.50-11.00) K/uL Hgb 13.0 (12.0-16.0) gm/dL Hct 38.4 (33.0-51.0) % Plt Count 300 (140-440) K/uL [facility] 11/19/24 12:41 Sodium 132 L Potassium 4.8 Chloride 101 Carbon Dioxide 21 BUN 23 Creatinine 0.9 Glucose 108 Calcium 9.8 11/19/2024 EKG: Normal sinus rhythm, 64 beats per minute, normal EKG. Ordering Physician: Memo Cabrera M.D. Date of Service: 11/19/24 Procedure(s): XR chest 1V Accession Number(s): [id number] cc: Memo Cabrera M.D.; Provider,Not a Local~ For Patients: As a result of the Cures Act, medical imaging exams and procedure reports are released immediately into your electronic medical record. You may view this report before your referring provider. If you have questions, please contact your health care provider. INDICATION: Cough. Fall. TECHNIQUE: Chest 1 views. No acute abnormalities COMPARISON: None FINDINGS: Limitations: Underpenetrated Tubes and devices: None. Lungs: Lungs are clear. Prominent bronchovascular markings possibly due to under penetration. No infiltrates. Pleura: No pleural effusion. No pneumothorax. Heart: Heart size and vasculature are normal in caliber and appearance. Karin and Mediastinum: No enlargement. Bones and soft tissues: No significant findings. IMPRESSION: Suboptimal technique. No infiltrate or mass. Dictated by Derrick Rodriguez MD @ 11/19/2024 12:45:31 PM (Electronically Signed) Ordering Physician: Memo Carbera M.D. Date of Service: 11/19/24 Procedure(s): CT cervical spine wo con Accession Number(s): [id number] cc: Memo Cabrera M.D.; Provider,Not a Local~ For Patients: As a result of the s Act, medical imaging exams and procedure reports are released immediately into your electronic medical record. You may view this report before your referring provider. If you have questions, please contact your health care provider. Indication: Fall, hit head and neck Technique: Volumetric multidetector CT images of the cervical spine were obtained without the administration of IV contrast. Comparison: None available. Findings: The cervical vertebral body heights are grossly maintained with minimal endplate Schmorl`s defects and subchondral cystic changes. There is straightening of the normal cervical lordosis with anterolisthesis of C4 on C5. There is no displaced fracture or dislocation. There is moderate degenerative change of the cervical spine with disc height loss and marginal osteophyte formation. Degenerative changes of the atlantoaxial joint are appreciated. There is moderate to severe facet arthrosis. The paraspinous soft tissues are grossly within normal limits. Impression: Moderate degenerative changes of the cervical spine without acute osseous abnormality. Please note that all CT scans at this facility use dose modulation, iterative reconstruction, and/or weight-based dosing when appropriate to reduce radiation dose to as low as reasonably achievable. Dictated by Fred Osborne MD @ 11/19/2024 12:42:35 PM (Electronically Signed) Ordering Physician: Memo Cabrera M.D. Date of Service: 11/19/24 Procedure(s): CT head/brain wo con Accession Number(s): [id number] cc: Memo Cabrear M.D.; Provider,Not a Local~ For Patients: As a result of the Cures Act, medical imaging exams and procedure reports are released immediately into your electronic medical record. You may view this report before your referring provider. If you have questions, please contact your health care provider. Indication: Fall, head trauma Technique: Volumetric multidetector CT images of the head were obtained without the administration of low osmolar intravenous contrast. Comparison: MRI brain March 10, 2021 Findings: There is no intra-axial or extra-axial fluid collection. There is no mass effect or midline shift. There is age-related cortical atrophy with mild sulcal widening and ex vacuo dilatation of the lateral ventricles. There are chronic small vessel disease changes in the subcortical and periventricular white matter without lost lockett-white differentiation. The orbits and their contents are grossly within normal limits. The bony calvarium is grossly intact. The paranasal sinuses are clear. The mastoid air cells are well aerated. Impression: 1. Age-related changes of the brain without acute intracranial abnormality. Please note that all CT scans at this facility use dose modulation, iterative reconstruction, and/or weight-based dosing when appropriate to reduce radiation dose to as low as reasonably achievable. Dictated by Fred Osborne MD @ 11/19/2024 12:39:16 PM (Electronically Signed) Ordering Physician: Memo Cabrera M.D. Date of Service: 11/19/24 Procedure(s): XR hip RT min 2V Accession Number(s): [id number] cc: Memo Cabrera M.D.; Provider,Not a Local~ For Patients: As a result of the Cures Act, medical imaging exams and procedure reports are released immediately into your electronic medical record. You may view this report before your referring provider. If you have questions, please contact your health care provider. Indication: Injury Technique: An AP view of the pelvis was obtained as well as AP and lateral views of the right hip. Comparison: None Findings: As described below Impression: 1. Decreased bone mineral density. 2. Moderate arthritic changes at both hip joints. 3. Right intertrochanteric hip fracture. No additional fractures noted Dictated by Justyn Miller MD @ 11/19/2024 12:48:02 PM (Electronically Signed)
[2024-11-19] MEDS: LACTATED RINGERS 1000 ML 1,000 ML 75 ML IV (16:59)
[2024-11-19] MEDS: OXYCODONE 5 MG TABLET PO (19:37)
[2024-11-19] MEDS: SENNOSIDES 1 TAB TABLET PO (20:43)
[2024-11-19] MEDS: lisinopriL 20 MG TABLET 40 MG PO (20:43)
[2024-11-19] MEDS: CARBOXYMETHYLCELLULOSE (REFRESH PLUS) TEARS 1 DROP EYE-BOTH (20:43)
[2024-11-19] MEDS: QUETIAPINE 25 MG TABLET PO (20:43)
[2024-11-19] MEDS: ACETAMINOPHEN 325 MG TABLET 975 MG PO (20:54)
--- NOTE | 2024-11-19 23:40 | PC.NURSE ---
End of Shift: Patient pleasant and cooperative. Afebrile. Pain in right hip with any movement. PRN Oxycodone and Dilaudid given x1. Turn and reposition in bed. Tolerating regular diet with no nausea. O2 sats decreased to 84% on room air and 1L NC to keep sats greater than 90%. Lidoderm patch from home removed at bedtime.
[2024-11-20] VITALS (26 sets, daily range): BP systolic 93–165; BP diastolic 56–132; PULSE 60–95; RESP 16–20; TEMP 36.3–37.6; O2SAT 90–99
[2024-11-20] MEDS: OXYCODONE 5 MG TABLET PO ×4 (01:32→23:29)
[2024-11-20] MEDS: LACTATED RINGERS 1000 ML 1,000 ML 75 ML IV ×3 (05:43→15:01)
[2024-11-20] MEDS: HYDROmorphone 0.5 mg/0.5 ml inj IVP ×2 (06:37→10:48)
--- NOTE | 2024-11-20 07:24 | PC.NURSE ---
Pt alert and oriented to self only, pt has difficulties rating pain but states ?ow? and has facial grimacing and taking in deep breaths, pain managed with ice pack, repositioning, and PRN medications. Pt has been NPO since midnight tolerating well. Pt placed on 1L O2 via nasal cannula after pain medication administration due to pt O2 dipping below 90%. Pt had no urine output throughout the night with external catheter and pt reported being unable to void while in bed. RN bladder scanned pt for 388ml, updated MD Alfaro ([facility]) and MD Salinas, orders given to place tom catheter. Around 0640 pt reported pressure in chest, RN and scientific aide took EKG showing Normal sinus rhythm updated MD Salinas, no new orders given. VSS. ?
[2024-11-20] MEDS: QUETIAPINE 25 MG TABLET PO ×2 (07:36→20:37)
[2024-11-20] MEDS: CARBOXYMETHYLCELLULOSE (REFRESH PLUS) TEARS 1 DROP EYE-BOTH (07:36)
[2024-11-20] MEDS: LIDOCAINE 5% PATCH 1 PATCH TRANSDERMA (07:47)
--- NOTE | 2024-11-20 10:54 | PM.IMPN1 ---
Assessment and Plan Assessment and plan (1) Fall: Problem comment: - Mechanical, Observed, 11/19/2024 - PT/OT evaluation after surgery Status: Acute (2) Intertrochanteric fracture: Problem comment: - right - surgery planned for 11/20 - NPO after midnight, will hold off on pharmacologic VTE prophylaxis anticipation of surgery - EKG and chest x-ray are reviewed. Patient has a history of bradycardia, but her rates here are high 50s to low 60s. Greatest risk factor is age. No further workup needed prior to planned surgery. - Anesthesia did hip block in ER for pain. I have ordered APAP, oral oxycodone prn, and IV hydromorphone prn breakthrough pain. Status: Acute (3) Essential hypertension: Problem comment: - Amlodipine started 10/27 (metoprolol stopped again by patient/family 02/26), amlodipine stopped 02/28 due to orthostasis and frailty (only on lisinopril) - BP elevated, likely due to pain, anxiety. 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 - 11/19/24 Hgb 13. Since she has a long bone fracture, she will likely have some blood loss. Will start gentle IVF. Status: Chronic (5) Generalized anxiety disorder: Problem comment: citalopram started 04/28, citalopram increased 02/28 (and morning, low-dose Seroquel started 02/24 for for agitation related to the anxiety/cognitive impairment), no longer on citalopram, now takes sertraline - Continue sertraline and quetiapine Status: Chronic (6) Coronary artery disease: Problem comment: s/p inferior wall M.I. and cardiac stenting (mid RCA and staged mid LAD stent) 2005, metoprolol stopped 05/28 due to bradycardia Status: Chronic Subjective Date Seen: 11/20/24 Interval history: Daily Progress Note - Hospital Medicine Day #: 2 DOI 11/19 DOS 11/19 TBD CC: Right intertrochanteric hip fracture, witnessed fall, at [facility]. Dementia. 24 HOUR UPDATE: No obvious delirium. pain management has been challenging. s/p nerve block with SENIOR COMPLIANCE OFFICER; opioids. Patient did complain of some chest heaviness overnight. Vitals are normal. Repeat EKG shows NSR. Notable Labs, Micro, Rads, Interventions: All her vital signs have been reviewed are unremarkable/stable. She remains on 1 L nasal cannula oxygen to keep her sats greater than 90%. No new labs this morning, ER labs been reviewed. Hemoglobin is at her baseline 13.0 Sodium was mildly depressed at 1:32 a.m.. Intact renal function. No urine obtained. MRSA negative EKG reviewed. NSR. Right intertrochanteric hip fracture Objective: alert, mild To moderate issues with word-finding that sentence completion. States her pain is better. Vitals: see above Lungs: Clear. Cardiac: S1S2. No harsh murmurs. Disposition/Potential discharge - Likely will need short-term rehab after medical and operative interventions. Today I spent 50minutes seeing the patient, reviewing [facility]panse and EPIC notes/diagnostics, discussing the care plan with our care time that includes social work, PT/OT, pharmacy, RT, long-term and documenting my impressions and plan in the medical record. Exam Const: Vital Signs, click to edit/add: Vital Signs - 24 hr 11/19/24 11:34 11/19/24 12:24 11/19/24 12:30 Temperature 97.8 F Pulse Rate 58 L 57 L Pulse Rate [Left P ulse Oximeter] Pulse Rate [Right Pulse Oximeter] 63 Respiratory Rate 18 Blood Pressure Blood Pressure [Le ft Arm] Blood Pressure [Ri ght Upper Arm] 173/82 H Pulse Oximetry 96 98 99 Oxygen Delivery Me thod Room Air Oxygen Flow Rate 11/19/24 12:33 11/19/24 12:34 11/19/24 12:45 Temperature Pulse Rate 59 L 61 60 Pulse Rate [Left P ulse Oximeter] Pulse Rate [Right Pulse Oximeter] Respiratory Rate Blood Pressure 173/82 H Blood Pressure [Le ft Arm] Blood Pressure [Ri ght Upper Arm] Pulse Oximetry 99 99 96 Oxygen Delivery Me thod Oxygen Flow Rate 11/19/24 12:54 11/19/24 13:00 11/19/24 13:15 Temperature Pulse Rate 66 59 L 61 Pulse Rate [Left P ulse Oximeter] Pulse Rate [Right Pulse Oximeter] Respiratory Rate 18 Blood Pressure 188/97 H Blood Pressure [Le ft Arm] Blood Pressure [Ri ght Upper Arm] Pulse Oximetry 95 99 96 Oxygen Delivery Me thod Oxygen Flow Rate 11/19/24 13:30 11/19/24 13:45 11/19/24 13:50 Temperature Pulse Rate 61 62 63 Pulse Rate [Left P ulse Oximeter] Pulse Rate [Right Pulse Oximeter] Respiratory Rate 12 Blood Pressure 181/96 H Blood Pressure [Le ft Arm] Blood Pressure [Ri ght Upper Arm] Pulse Oximetry 99 100 96 Oxygen Delivery Me thod Oxygen Flow Rate 11/19/24 13:53 11/19/24 13:54 11/19/24 13:57 Temperature Pulse Rate 65 66 68 Pulse Rate [Left P ulse Oximeter] Pulse Rate [Right Pulse Oximeter] Respiratory Rate 20 19 20 Blood Pressure 101/68 Blood Pressure [Le ft Arm] Blood Pressure [Ri ght Upper Arm] Pulse Oximetry 97 92 93 Oxygen Delivery Me thod Oxygen Flow Rate 11/19/24 13:58 11/19/24 13:59 11/19/24 14:00 Temperature Pulse Rate 66 64 64 Pulse Rate [Left P ulse Oximeter] Pulse Rate [Right Pulse Oximeter] Respiratory Rate 33 H 15 20 Blood Pressure 163/97 H Blood Pressure [Le ft Arm] Blood Pressure [Ri ght Upper Arm] Pulse Oximetry 95 98 96 Oxygen Delivery Me thod Oxygen Flow Rate 11/19/24 14:02 11/19/24 18:45 11/19/24 21:52 Temperature 97.6 F Pulse Rate 62 Pulse Rate [Left P ulse Oximeter] 62 Pulse Rate [Right Pulse Oximeter] Respiratory Rate 18 16 Blood Pressure 174/72 H Blood Pressure [Le ft Arm] 124/72 Blood Pressure [Ri ght Upper Arm] Pulse Oximetry 93 94 84 L Oxygen Delivery Me thod Room Air Room Air Room Air Oxygen Flow Rate 11/19/24 21:56 11/20/24 00:11 11/20/24 00:11 Temperature 98.0 F Pulse Rate Pulse Rate [Left P ulse Oximeter] 61 Pulse Rate [Right Pulse Oximeter] Respiratory Rate 16 16 Blood Pressure Blood Pressure [Le ft Arm] 112/56 L Blood Pressure [Ri ght Upper Arm] Pulse Oximetry 94 98 98 Oxygen Delivery Me thod Nasal Cannula Nasal Cannula Nasal Cannula Oxygen Flow Rate 1.0 1.0 1.0 11/20/24 01:47 11/20/24 06:45 11/20/24 07:42 Temperature 98.6 F 97.7 F 98.9 F Pulse Rate Pulse Rate [Left P ulse Oximeter] 60 60 61 Pulse Rate [Right Pulse Oximeter] Respiratory Rate 20 18 16 Blood Pressure Blood Pressure [Le ft Arm] 128/57 L 148/72 H 153/70 H Blood Pressure [Ri ght Upper Arm] Pulse Oximetry 97 95 95 Oxygen Delivery Me thod Nasal Cannula Nasal Cannula Nasal Cannula Oxygen Flow Rate 1.0 1 1 11/20/24 08:10 Temperature Pulse Rate Pulse Rate [Left P ulse Oximeter] Pulse Rate [Right Pulse Oximeter] Respiratory Rate Blood Pressure Blood Pressure [Le ft Arm] Blood Pressure [Ri ght Upper Arm] Pulse Oximetry 94 Oxygen Delivery Me thod Nasal Cannula Oxygen Flow Rate 1 Labs Labs: Laboratory Results - last 24 hr 11/19/24 12:41 WBC 7.33 RBC 3.74 L Hgb 13.0 Hct 38.4 MCV 103 H MCH 35 H MCHC 34 RDW Coeff of Michael 12.6 Plt Count 300 Neut % (Auto) 72.7 H Lymph % (Auto) 15.6 L [place] % (Auto) 8.7 Eos % (Auto) 2.5 Baso % (Auto) 0.1 Neut # (Auto) 5.30 Lymph # (Auto) 1.10 [place] # (Auto) 0.60 Eos # (Auto) 0.18 Baso # (Auto) 0.01 Abs Immat Gran (auto) 0.03 Imm/Tot Granulo (auto) 0.4 Sodium 132 L Potassium 4.8 Chloride 101 Carbon Dioxide 21 Anion Gap 10 BUN 23 Creatinine 0.9 Estimated GFR 64 Glucose 108 Calcium 9.8
--- NOTE | 2024-11-20 12:39 | PC.NURSE ---
End of Shift: Pt has been pleasant and cooperative. she is alert x2. Afebrile. Pain in right hip with any movement. PRN Oxycodone and Dilaudid given x1. she left for surgery @ 1221; Blanco was placed this am. she has been Turn and reposition in bed. she has been on 1L NC to keep sats greater than 90%. Lidoderm patch is on. and PRICE was in to see. consent was done by phone per md.
--- NOTE | 2024-11-20 12:55 | P.ANES_ITS ---
Anesthesia Charges Start Date/Time Anesthesia Start Date: 11/20/24 Anesthesia Start Time: 12:21 Stop Date/Time Anesthesia Stop Date: 11/20/24 Anesthesia Stop Time: 14:15 Summary Extremes of Age - Over 70 or under 1: MDA Coding CPT Codes CPT Codes: ANESTH SURGERY OF FEMUR - 80192 ([id number]) P3 - PATIENT W/SEVERE SYS DISEASE, QK - RESPIRATORY SUPPORT TECHNICIAN 2-4 CNCRNT ANES PROC, QX - TRAFFIC ATTENDANT SVC W/ MD MED DIRECTION Additional Codes: Summary - Extremes of Age - Over 70 or under 1: MDA ([id number])
--- NOTE | 2024-11-20 12:55 | W.PM.NB ---
Nerve Block Nerve Block Time Seen by Provider: 12:36 Date Seen: 11/20/24 Type of block requested by surgeon for post-operative analgesia: JALEEL/LFCN Side: right Time out performed: Yes Verification of patient name: Yes Verification of date of : Yes Site marking: site marked Name of person performing procedure: Hal Continuous monitoring Was continuous monitoring of O2 sat, B/P, cardiac cath lab radiology technologist, recorded every 15 minutes?: Yes Procedure Checklist: sterile prep, needles and gloves Ultrasound guided. Images saved: Yes Medications given in 5ml increments after negative aspiration: Ropivicaine %: 0.5 mL: 30 Needle gauge: 20 Precedex (mcg): 25 Patient tolerated procedure well: Yes Additional comments: Needle noted below psoas tendon needle noted adjacent to LFCN Block Charges Block Charge (with Pro Fee): Other Periph Nerve Block Use of Ultrasound Machine for Block: Yes- US Guidance/pain block
--- NOTE | 2024-11-20 12:55 | W.ANESCHARGE ---
Anesthesia Charges Start Date/Time Anesthesia Start Date: 11/20/24 Anesthesia Start Time: 12:21 Stop Date/Time Anesthesia Stop Date: 11/20/24 Anesthesia Stop Time: 14:15 Summary Extremes of Age - Over 70 or under 1: MDA Coding CPT Codes CPT Codes: ANESTH SURGERY OF FEMUR - 94451 ([id number]) P3 - PATIENT W/SEVERE SYS DISEASE, QK - INSURANCE SALES SPECIALIST 2-4 CNCRNT ANES PROC, QX - APPRENTICE TECHNICIAN SVC W/ MD MED DIRECTION Additional Codes: Summary - Extremes of Age - Over 70 or under 1: MDA ([id number])
[2024-11-20] MEDS: CEFAZOLIN 1 GM inj IVP (13:02)
--- NOTE | 2024-11-20 13:15 | CRLHL7_ITS ---
For Patients: As a result of the Cures Act, medical imaging exams and procedure reports are released immediately into your electronic medical record. You may view this report before your referring provider. If you have questions, please contact your health care provider. INDICATION: Right hip fracture. Intraoperative. TECHNIQUE: Three spot images of the hip submitted. 119.5 seconds fluoro time. FINDINGS: Right hip ORIF. Dictated by Simon Marcelo MD @ 11/21/2024 2:33:11 PM (Electronically Signed)
--- NOTE | 2024-11-20 13:16 | SUR.OPER ---
lidocaine patch on right hip was placed on left hip per Glenn valle, for procedure. Will be moved back after procedure to right hip.
--- NOTE | 2024-11-20 13:32 | PC.SOCIAL ---
Discharge Planning: BRE received vm from Rocio (RN at [facility]) [phone] stating that she will be calling in a day to discuss plan. BRE returned Rocio's call and updated that surgery is today and we'll know more about what level of care patient needs tomorrow. SW to continue to follow throughout hospitalization.
--- NOTE | 2024-11-20 13:54 | PM.ORCN ---
History of Present Illness HPI Date Seen: 11/20/24 Chief complaint: leg pain Narrative: The patient is an 84-year-old community ambulator without assist. She lives in Memory Care. She fell yesterday sustaining a 3 part intertrochanteric fracture of her right lower extremity. She has been medically cleared for surgery. Review of Systems Narrative: The patient denies: Fever, night sweats, shaking chills, nausea, vomiting, diarrhea, chest pain, chest pressure, shortness of breath, no rash, no change in hearing or vision, no issues with bleeding or clotting [facility] Medical History Mild cognitive impairment ?G31.84 - Mild cognitive impairment of uncertain or unknown etiology (ICD-10) Bradycardia ?R00.1 - Bradycardia, unspecified (ICD-10) Chest wall pain ?R07.89 - Other chest pain (ICD-10) Chronic nausea ?R11.0 - Nausea (ICD-10) Coronary artery disease ?I25.10 - Atherosclerotic heart disease of platinum coronary artery without angina pectoris (ICD-10) Generalized anxiety disorder ?F41.1 - Generalized anxiety disorder (ICD-10) Pelvic organ prolapse quantification stage 4 cystocele ?N81.10 - Cystocele, unspecified (ICD-10) Hereditary hemochromatosis ?E83.110 - Hereditary hemochromatosis (ICD-10) Subjective memory complaints ?R41.89 - Other symptoms and signs involving cognitive functions and awareness (ICD-10) Essential hypertension ?I10 - Essential (primary) hypertension (ICD-10) Vaginal erosion secondary to pessary use ?T83.89XA - Other specified complication of genitourinary prosthetic devices, implants and grafts, initial encounter (ICD-10) ?N89.8 - Other specified noninflammatory disorders of vagina (ICD-10) Surgical History History of total abdominal hysterectomy and bilateral salpingo-oophorectomy ?Z90.710 - Acquired absence of both cervix and uterus (ICD-10) ?Z90.722 - Acquired absence of ovaries, bilateral (ICD-10) ?Z90.79 - Acquired absence of other genital organ(s) (ICD-10) History of cholecystectomy ?Z90.49 - Acquired absence of other specified parts of digestive tract (ICD-10) Family History (Updated 11/19/24 @ 14:27 by Lenore Lindsey MD) Brother Stroke Social History (Updated 11/19/24 @ 15:43 by Lenore Lindsey MD) Narrative: Memory care at [facility], [place]. Her son is Jn Mike, a family medicine physician at the [facility]. She is (her has dementia). The patient is retired. She has 2 children. Alcohol use is none. She is a nonsmoker. POLST from 2023 states she is DNR, selective treatment, no feeding tube, IV antibiotics and meds are okay. What is your current living situation?: I presently have a place to live Problems where you live: no known problems Problems where you live details: N/A In the past 12 months, utilities in danger of being shut off: no In past 12 months, lack of transportation kept you from medical appts, meetings, work, or getting things needed for daily living: no In the past 12 mos, have been you worried that your food would run out before you had money to buy more?: never true In the past 12 mos, the food you bought just didn't last and you didn't have money to buy more?: never true Smoking Status: Former smoker How often do you have a drink containing alcohol: never How often do you have six or more drinks on one occasion: Never AUDIT-C Alcohol total score: 0 Non-prescribed substance use: denies use Caffeine: No How often does anyone, including family, friends and others, physically hurt you: never How often does anyone, including family, friends and others, insult or talk down to you: never How often does anyone, including family, friends and others, threaten you with harm: never How often does anyone, including family, friends and others, scream or curse at you: never service: No Meds Home Medications and Allergies Home Medications ?Medication ?Instructions ?Recorded ?Confirmed ?Type aspirin 81 mg tablet,delayed 162 mg PO HS 03/22/22 11/19/24 History release psyllium husk 3.4 gram/5.4 gram 1 tbsp PO QDAY 10/08/22 11/19/24 History oral powder (Metamucil) acetaminophen 500 mg tablet 1,000 mg PO TID PRN 11/19/24 11/19/24 History glycerin 1 drp ophthalmic (eye) BID 11/19/24 11/19/24 History lidocaine 4 % topical patch 1 patch topical Q24H 11/19/24 11/19/24 History (Aspercreme (lidocaine)) lisinopril 40 mg tablet 40 mg PO HS 11/19/24 11/19/24 History polyethylene glycol 3350 17 gram 17 g PO DAILY 11/19/24 11/19/24 History oral powder packet (Gavilax) quetiapine 25 mg tablet (Seroquel) 25 mg PO BID 11/19/24 11/19/24 History sennosides 8.6 mg tablet (senna) 8.6 mg PO BID 11/19/24 11/19/24 History sertraline 50 mg tablet 50 mg PO DAILY 11/19/24 11/19/24 History sodium chloride 0.65 % nasal spray 2 spray intranasal BID PRN 11/19/24 11/19/24 History aerosol (Deep Sea Nasal) Allergies Allergy/AdvReac Type Severity Reaction Status Date / Time No Known Allergies Allergy Unknown Verified 11/19/24 11:38 Ortho Exam Narrative Exam Narrative: Alert and interactive, mildly confused. The skin about the right hip is intact, no surgical scars, no swelling, no ecchymosis. CMS to the right foot is normal. Const Vital Signs, click to edit/add: Vital Signs - 24 hr 11/19/24 13:57 11/19/24 13:58 11/19/24 13:59 Temperature Pulse Rate 68 66 64 Pulse Rate [Left Pulse Oximeter] Respiratory Rate 20 33 H 15 Blood Pressure 163/97 H Blood Pressure [Left Arm] Pulse Oximetry 93 95 98 Oxygen Delivery Method Oxygen Flow Rate 11/19/24 14:00 11/19/24 14:02 11/19/24 18:45 Temperature 97.6 F Pulse Rate 64 62 Pulse Rate [Left Pulse Oximeter] 62 Respiratory Rate 20 18 16 Blood Pressure 174/72 H Blood Pressure [Left Arm] 124/72 Pulse Oximetry 96 93 94 Oxygen Delivery Method Room Air Room Air Oxygen Flow Rate 11/19/24 21:52 11/19/24 21:56 11/20/24 00:11 Temperature Pulse Rate Pulse Rate [Left Pulse Oximeter] Respiratory Rate 16 Blood Pressure Blood Pressure [Left Arm] Pulse Oximetry 84 L 94 98 Oxygen Delivery Method Room Air Nasal Cannula Nasal Cannula Oxygen Flow Rate 1.0 1.0 11/20/24 00:11 11/20/24 01:47 11/20/24 06:45 Temperature 98.0 F 98.6 F 97.7 F Pulse Rate Pulse Rate [Left Pulse Oximeter] 61 60 60 Respiratory Rate 16 20 18 Blood Pressure Blood Pressure [Left Arm] 112/56 L 128/57 L 148/72 H Pulse Oximetry 98 97 95 Oxygen Delivery Method Nasal Cannula Nasal Cannula Nasal Cannula Oxygen Flow Rate 1.0 1.0 1 11/20/24 07:42 11/20/24 08:10 11/20/24 11:10 Temperature 98.9 F Pulse Rate Pulse Rate [Left Pulse Oximeter] 61 67 Respiratory Rate 16 16 Blood Pressure Blood Pressure [Left Arm] 153/70 H Pulse Oximetry 95 94 93 Oxygen Delivery Method Nasal Cannula Nasal Cannula Nasal Cannula Oxygen Flow Rate 1 1 1 Results Labs Labs: Laboratory Results - last 48 hr 11/19/24 12:41 WBC 7.33 RBC 3.74 L Hgb 13.0 Hct 38.4 MCV 103 H MCH 35 H MCHC 34 RDW Coeff of Michael 12.6 Plt Count 300 Neut % (Auto) 72.7 H Lymph % (Auto) 15.6 L Trigg % (Auto) 8.7 Eos % (Auto) 2.5 Baso % (Auto) 0.1 Neut # (Auto) 5.30 Lymph # (Auto) 1.10 Trigg # (Auto) 0.60 Eos # (Auto) 0.18 Baso # (Auto) 0.01 Abs Immat Gran (auto) 0.03 Imm/Tot Granulo (auto) 0.4 Sodium 132 L Potassium 4.8 Chloride 101 Carbon Dioxide 21 Anion Gap 10 BUN 23 Creatinine 0.9 Estimated GFR 64 Glucose 108 Calcium 9.8 Diagnostic results Additional Comments: X-ray: An AP pelvis, AP and cross-table lateral view of the right hip show a 3 part intertrochanteric fracture of the right lower extremity. There is Tonnis grade 2 right hip osteoarthritis with superior joint space narrowing, not [id number]. There is subchondral sclerosis and osteophytic spurring, no real subchondral cysts. Assessment and Plan Assessment and plan (1) Fall: Problem comment: - Mechanical, Observed, 11/19/2024 - PT/OT evaluation after surgery Status: Acute Total time spent: Total time spent is greater than 50% in coordination of care (as documented) at patient's floor/unit and/or counseling patient: (2) Intertrochanteric fracture: Problem comment: - right - surgery planned for 11/20 - NPO after midnight, will hold off on pharmacologic VTE prophylaxis anticipation of surgery - EKG and chest x-ray are reviewed. Patient has a history of bradycardia, but her rates here are high 50s to low 60s. Greatest risk factor is age. No further workup needed prior to planned surgery. - Anesthesia did hip block in ER for pain. I have ordered APAP, oral oxycodone prn, and IV hydromorphone prn breakthrough pain. Status: Acute Total time spent: Total time spent is greater than 50% in coordination of care (as documented) at patient's floor/unit and/or counseling patient: (3) Essential hypertension: Problem comment: - Amlodipine started 10/27 (metoprolol stopped again by patient/family 02/26), amlodipine stopped 02/28 due to orthostasis and frailty (only on lisinopril) - BP elevated, likely due to pain, anxiety. 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 - 11/19/24 Hgb 13. Since she has a long bone fracture, she will likely have some blood loss. Will start gentle IVF. Status: Chronic Total time spent: Total time spent is greater than 50% in coordination of care (as documented) at patient's floor/unit and/or counseling patient: (5) Generalized anxiety disorder: Problem comment: citalopram started 04/28, citalopram increased 02/28 (and morning, low-dose Seroquel started 02/24 for for agitation related to the anxiety/cognitive impairment), no longer on citalopram, now takes sertraline - Continue sertraline and quetiapine Status: Chronic Total time spent: Total time spent is greater than 50% in coordination of care (as documented) at patient's floor/unit and/or counseling patient: (6) Coronary artery disease: Problem comment: s/p inferior wall M.I. and cardiac stenting (mid RCA and staged mid LAD stent) 2005, metoprolol stopped 05/28 due to bradycardia Status: Chronic Total time spent: Total time spent is greater than 50% in coordination of care (as documented) at patient's floor/unit and/or counseling patient: Plan Assessment: Three part right hip intertrochanteric fracture Tonnis grade 2 right hip osteoarthritis Mild cognitive impairment Plan: She has been medically cleared for surgery. Therefore, we will plan to take her to the operating room today for ORIF of her right hip fracture.
--- NOTE | 2024-11-20 13:59 | PM.ORPRC ---
Procedure Note Date of procedure: 11/20/24 Procedure: PREOPERATIVE DIAGNOSIS: Right hip 3 part intertrochanteric fracture POSTOPERATIVE DIAGNOSIS: Right hip 3 part intertrochanteric fracture NAME OF OPERATION: Right hip fracture ORIF SURGEON: Kevin Ko MD DIE STAMPING PRESS OPERATOR: AMELIA Powers Elizabeth Oss MS4 IMPLANTS: Synthes intramedullary hip screw 11 mm x 170 mm with a 105 mm lag screw and a 32 mm distal interlocking screw ANESTHESIA: Spinal ESTIMATED BLOOD LOSS: 25 mL COMPLICATIONS: None SPECIMENS: None DRAINS: None PREOPERATIVE ANTIBIOTICS: Ancef 1 gram INDICATIONS: The patient is a 84-year-old who fell yesterday sustaining a 3 part intertrochanteric fracture of the right hip. They were admitted for workup and care. They have been medically cleared for surgery. The risks, benefits and expected outcomes were discussed in detail. These included but were not limited to: Infection, bleeding, injury to blood vessel or nerve, venous thromboembolism. All questions were answered to their satisfaction. Use of an senior care assistant was necessary for patient positioning and safety, soft tissue retraction and closure, dressing application, and transfer of the patient to and from the hospital bed to the fracture table. PROCEDURE: Spinal anesthesia was administered. The patient was placed supine on the fracture table. The right lower extremity was prepped and draped in the usual sterile fashion. The limb was placed in longitudinal traction. Our provisional reduction was confirmed with the C-arm. The guide pin was placed percutaneously to the tip of the greater trochanter. It was advanced into the canal. Its placement was confirmed with the image intensifier in both AP and lateral views. We then made a stab incision around the guide pin. The soft tissue sleeve was advanced to the tip of the trochanter. The opening reamer was used. The intramedullary nail was placed. The guide pin was taken to the subchondral bone of the femoral head on both the AP and lateral views. It was placed in the center, center aspect of the head. The drill and the tap were used. We placed the 105 mm lag screw. Our reduction remains anatomic. Traction was released. The lag screw was set to dynamic mode. That is it was not locked. We placed the distal interlocking screw. This construct was imaged in the AP and lateral views and was felt to be well placed with an anatomic reduction. The wounds were irrigated with normal saline. They were closed with Vicryl deep and Monocryl in the skin. A dry dressing was applied. Sponge and needle counts were correct x2. The patient tolerated the procedure well. There were no apparent complications. They were carefully transferred to the hospital bed and taken to the postanesthesia care unit in satisfactory condition. PLAN: The patient will be mobilized with physical therapy. They may weightbear as tolerates on the right lower extremity. Xarelto will be used for DVT prophylaxis. They will be discharged to a [facility] once medically appropriate.
--- NOTE | 2024-11-20 14:20 | P.ANES_ITS ---
Anesthesia Charges Start Date/Time Anesthesia Start Date: 11/20/24 Anesthesia Start Time: 12:21 Stop Date/Time Anesthesia Stop Date: 11/20/24 Anesthesia Stop Time: 14:15 Summary Extremes of Age - Over 70 or under 1: PLASTER MOLDER Coding CPT Codes CPT Codes: ANESTH HIP JOINT SURGERY - 54804 ([id number]) P3 - PATIENT W/SEVERE SYS DISEASE, QK - PULPWOOD DEALER 2-4 CNCRNT ANES PROC, QX - PLASTER MOLDER SVC W/ MD MED DIRECTION Additional Codes: Summary - Extremes of Age - Over 70 or under 1: PLASTER MOLDER ([id number])
--- NOTE | 2024-11-20 14:20 | W.ANESCHARGE ---
Anesthesia Charges Start Date/Time Anesthesia Start Date: 11/20/24 Anesthesia Start Time: 12:21 Stop Date/Time Anesthesia Stop Date: 11/20/24 Anesthesia Stop Time: 14:15 Summary Extremes of Age - Over 70 or under 1: SLP TEACHER Coding CPT Codes CPT Codes: ANESTH HIP JOINT SURGERY - 69086 ([id number]) P3 - PATIENT W/SEVERE SYS DISEASE, QK - PHOTORESIST CONTACT PRINTER 2-4 CNCRNT ANES PROC, QX - SLP TEACHER SVC W/ MD MED DIRECTION Additional Codes: Summary - Extremes of Age - Over 70 or under 1: SLP TEACHER ([id number])
[2024-11-20] MEDS: ACETAMINOPHEN 325 MG TABLET 650 MG PO ×2 (18:28→23:29)
[2024-11-20] MEDS: CEFAZOLIN 1 GM in 0.9 % SODIUM CHLORIDE Mini-bag 100 ML IVPB (18:29)
[2024-11-20] MEDS: SENNOSIDES 1 TAB TABLET 2 TAB PO (20:36)
[2024-11-20] MEDS: lisinopriL 20 MG TABLET 40 MG PO (20:37)
--- NOTE | 2024-11-20 22:44 | PC.NURSE ---
Pt resting comfortably in bed. VSS. Pain controlled well with PRN medications and ice. Adequate output via tom. Tolerating oral intake well. Pt is confused but redirectable. Surgical dressing remains clean, dry, and intact.
[2024-11-20] MEDS: LORazepam 0.5 MG TABLET PO (23:29)
[2024-11-21] VITALS (7 sets, daily range): BP systolic 132–156; BP diastolic 61–92; PULSE 73–79; RESP 16–20; TEMP 36.2–37; O2SAT 94–97
[2024-11-21] MEDS: LACTATED RINGERS 1000 ML 1,000 ML 75 ML IV (00:27)
[2024-11-21] MEDS: OXYCODONE 5 MG TABLET PO ×5 (02:10→20:43)
[2024-11-21] MEDS: CEFAZOLIN 1 GM in 0.9 % SODIUM CHLORIDE Mini-bag 100 ML IVPB (02:11)
[2024-11-21] MEDS: ACETAMINOPHEN 325 MG TABLET 650 MG PO ×4 (05:09→23:55)
--- NOTE | 2024-11-21 05:56 | PC.NURSE ---
End of shift report [id number]: Patient alert and oriented to name and date only. Restless and calling out throughout the night, patient reporting pain to right thigh, unable to rate. PRN oxycodone utilized along with scheduled tylenol and ice pack to opsite with minimal relief of pain and patient calling out. Patient conversation non-sensical and rambles without coherent thought. Patient calling out every 30-45 minutes with repetitive requests. Repositioned every 1-1.5 hours due to calling out. At 0500 patient began calling out, upon entering room patient was found to have removed her gown and pulled IV out of right AC, catheter tip intact with traumatic removal. Blanco catheter patent, draining light michelle colored urine. Patient up throughout the entire night, did receive PRN ativan for insomnia at 2340 without effective results.
[2024-11-21 06:28] LABS: Sodium* 132 mmol/L (135-149)
[2024-11-21 06:29] LABS: Potassium* 4.4 mmol/L (3.6-5.1)
[2024-11-21 06:31] LABS: Blood Urea Nitrogen* 20 mg/dL (7-30); Creatinine* 0.9 mg/dL (0.5-1.5); Est. Creatinine Clearance* 42.18; Estimated Glomerular Filt Rate 64 ml/min
[2024-11-21 06:34] LABS: Hematocrit 29.2 % (33.0-51.0); Hemoglobin* 9.7 gm/dL (12.0-16.0); Mean Corpuscular HGB Conc 33 gm/dL (32-36); Mean Corpuscular Hemoglobin 35 pg (26-34); Mean Corpuscular Volume 105 fL (80-100); Platelet Count* 164 K/uL (140-440); Red Blood Count 2.78 m/uL (4.00-5.20); White Blood Count* 8.86 K/uL (4.50-11.00)
[2024-11-21 06:35] LABS: Slide Review Reflex No
--- NOTE | 2024-11-21 07:21 | PM.IMPN1 ---
Assessment and Plan Assessment and plan (1) Status post hip surgery: Problem comment: Right hip IM rodding 11-20-24. Maikel. Status: Acute (2) Fall: Problem comment: - Mechanical, Observed, 11/19/2024 - PT/OT evaluation after surgery Status: Acute (3) Intertrochanteric fracture: Problem comment: - right - ORIF 11/20/24 Status: Acute (4) Essential hypertension: Problem comment: - Amlodipine started 10/27 (metoprolol stopped again by patient/family 02/26), amlodipine stopped 02/28 due to orthostasis and frailty (only on lisinopril) - BP elevated, likely due to pain, anxiety. 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 - 11/19/24 Hgb 13. Since she has a long bone fracture, she will likely have some blood loss. Will start gentle IVF. Status: Chronic (6) Generalized anxiety disorder: Problem comment: citalopram started 04/28, citalopram increased 02/28 (and morning, low-dose Seroquel started 02/24 for for agitation related to the anxiety/cognitive impairment), no longer on citalopram, now takes sertraline - Continue sertraline and quetiapine Status: Chronic (7) Coronary artery disease: Problem comment: s/p inferior wall M.I. and cardiac stenting (mid RCA and staged mid LAD stent) 2005, metoprolol stopped 05/28 due to bradycardia Status: Chronic Subjective Date Seen: 11/21/24 Interval history: Daily Progress Note - Hospital Medicine Day #: 3 DOI 11/19 POD #1 Right hip fracture ORIF SURGEON: Kevin Ko MD ANESTHESIA: Spinal ESTIMATED BLOOD LOSS: 25 mL COMPLICATIONS: None CC: Right intertrochanteric hip fracture, witnessed fall, at [facility]. s/p ORIF. Baseline Dementia. New post-op delirium. 24 HOUR UPDATE: sleep elusive last night, awake and calling out and needing orientation multiple times. rec'd 25mg bid seroquel from her baseline home med list. one additional dose of 1/2mg of ativan was ineffective. vitals stable. Notable Labs, Micro, Rads, Interventions: All her vital signs have been reviewed are unremarkable/stable. She remains on 1 L nasal cannula oxygen to keep her sats greater than 90%. No new labs this morning, ER labs been reviewed. Hemoglobin is at her baseline 13.0 Sodium was mildly depressed at 1:32 a.m.. Intact renal function. No urine obtained. MRSA negative EKG reviewed. NSR. Right intertrochanteric hip fracture Objective: moving well; feeding herself. word finding and short term memory deficits. calling out with demands urgently that are not urgent. not agitated; but persistent. Vitals: see above Lungs: Clear. Cardiac: S1S2. No harsh murmurs. Disposition/Potential discharge - Likely will need short-term rehab after medical and operative interventions. Today I spent 50minutes seeing the patient, reviewing Expanse and EPIC notes/diagnostics, discussing the care plan with our care time that includes social work, PT/OT, pharmacy, RT, care home and documenting my impressions and plan in the medical record. Exam Const: Vital Signs, click to edit/add: Vital Signs - 24 hr 11/20/24 07:42 11/20/24 08:10 11/20/24 11:10 Temperature 98.9 F Pulse Rate Pulse Rate [Left P ulse Oximeter] 61 67 Respiratory Rate 16 16 Blood Pressure Blood Pressure [Le ft Arm] 153/70 H Blood Pressure [Ri ght Arm] Pulse Oximetry 95 94 93 Oxygen Delivery Me thod Nasal Cannula Nasal Cannula Nasal Cannula Oxygen Flow Rate 1 1 1 11/20/24 13:00 11/20/24 14:11 11/20/24 14:15 Temperature 97.7 F 99.6 F Pulse Rate 81 80 72 Pulse Rate [Left P ulse Oximeter] Respiratory Rate 16 16 16 Blood Pressure 163/132 H 132/66 93/68 Blood Pressure [Le ft Arm] Blood Pressure [Ri ght Arm] Pulse Oximetry 93 94 99 Oxygen Delivery Me thod Room Air Nasal Cannula Nasal Cannula Oxygen Flow Rate 3 3 11/20/24 14:20 11/20/24 14:25 11/20/24 14:30 Temperature Pulse Rate 74 71 72 Pulse Rate [Left P ulse Oximeter] Respiratory Rate 16 16 16 Blood Pressure 137/81 137/70 133/90 H Blood Pressure [Le ft Arm] Blood Pressure [Ri ght Arm] Pulse Oximetry 99 99 98 Oxygen Delivery Me thod Nasal Cannula Nasal Cannula Nasal Cannula Oxygen Flow Rate 3 3 3 11/20/24 14:35 11/20/24 14:40 11/20/24 14:50 Temperature 97.7 F Pulse Rate 74 77 93 Pulse Rate [Left P ulse Oximeter] Respiratory Rate 16 16 16 Blood Pressure 143/69 H 163/132 H Blood Pressure [Le ft Arm] Blood Pressure [Ri ght Arm] Pulse Oximetry 99 94 93 Oxygen Delivery Me thod Nasal Cannula Room Air Room Air Oxygen Flow Rate 3 11/20/24 15:00 11/20/24 15:00 11/20/24 15:15 Temperature 97.6 F Pulse Rate 75 79 Pulse Rate [Left P ulse Oximeter] Respiratory Rate 16 16 Blood Pressure 159/81 H 152/86 H Blood Pressure [Le ft Arm] Blood Pressure [Ri ght Arm] Pulse Oximetry 90 97 Oxygen Delivery Me thod Room Air Nasal Cannula Room Air Oxygen Flow Rate 0.5 11/20/24 15:30 11/20/24 15:45 11/20/24 16:15 Temperature Pulse Rate 74 71 73 Pulse Rate [Left P ulse Oximeter] Respiratory Rate Blood Pressure 158/79 H 156/82 H 156/82 H Blood Pressure [Le ft Arm] Blood Pressure [Ri ght Arm] Pulse Oximetry Oxygen Delivery Me thod Oxygen Flow Rate 11/20/24 16:45 11/20/24 17:45 11/20/24 18:45 Temperature Pulse Rate 86 95 Pulse Rate [Left P ulse Oximeter] Respiratory Rate 16 Blood Pressure 165/101 H 143/89 H 129/67 Blood Pressure [Le ft Arm] Blood Pressure [Ri ght Arm] Pulse Oximetry 98 Oxygen Delivery Me thod Oxygen Flow Rate 11/20/24 19:45 11/20/24 20:45 11/20/24 23:00 Temperature 97.3 F L Pulse Rate 79 Pulse Rate [Left P ulse Oximeter] Respiratory Rate 16 18 Blood Pressure 155/89 H 130/76 Blood Pressure [Le ft Arm] Blood Pressure [Ri ght Arm] Pulse Oximetry 94 Oxygen Delivery Me thod Room Air Oxygen Flow Rate 11/20/24 23:00 11/20/24 23:00 11/21/24 03:00 Temperature 98.4 F 97.8 F Pulse Rate Pulse Rate [Left P ulse Oximeter] 77 78 Respiratory Rate 18 18 18 Blood Pressure Blood Pressure [Le ft Arm] 149/74 H Blood Pressure [Ri ght Arm] 105/63 Pulse Oximetry 94 94 94 Oxygen Delivery Me thod Room Air Room Air Room Air Oxygen Flow Rate Labs Labs: Laboratory Results - last 24 hr 11/21/24 05:35 WBC 8.86 RBC 2.78 L Hgb 9.7 L Hct 29.2 L MCV 105 H MCH 35 H MCHC 33 Plt Count 164 Sodium 132 L Potassium 4.4 BUN 20 Creatinine 0.9 Estimated Creat Clear 42.18 Estimated GFR 64
--- NOTE | 2024-11-21 07:56 | PM.ORPN ---
Subjective Subjective Time Seen by Provider: 07:10 Date Seen: 11/21/24 Principal diagnosis: Status post right hip IM rodding Interval history: Daiana Espinal is comfortable at rest. She states her right thigh has some pain. She converses about good morning Nora on TV and appears in no distress. Ortho Exam Narrative Exam Narrative: Alert and conversive. Patient is in no acute distress. Converses without labored breathing. Hearing is grossly intact. Examination of the right lower extremity shows dressings are intact. Mild soft tissue edema about the right thigh and hip area. She is able to dorsiflex and plantar flex her right ankle upon command. Calves are soft and nontender. CMS intact right lower extremity. Hemoglobin 9.7 Const Vital Signs, click to edit/add: Vital Signs - 24 hr 11/20/24 08:10 11/20/24 11:10 11/20/24 13:00 Temperature 97.7 F Pulse Rate 81 Pulse Rate [Left Pulse Oximeter] 67 Respiratory Rate 16 16 Blood Pressure 163/132 H Blood Pressure [Left Arm] Blood Pressure [Right Arm] Pulse Oximetry 94 93 93 Oxygen Delivery Method Nasal Cannula Nasal Cannula Room Air Oxygen Flow Rate 1 1 11/20/24 14:11 11/20/24 14:15 11/20/24 14:20 Temperature 99.6 F Pulse Rate 80 72 74 Pulse Rate [Left Pulse Oximeter] Respiratory Rate 16 16 16 Blood Pressure 132/66 93/68 137/81 Blood Pressure [Left Arm] Blood Pressure [Right Arm] Pulse Oximetry 94 99 99 Oxygen Delivery Method Nasal Cannula Nasal Cannula Nasal Cannula Oxygen Flow Rate 3 3 3 11/20/24 14:25 11/20/24 14:30 11/20/24 14:35 Temperature Pulse Rate 71 72 74 Pulse Rate [Left Pulse Oximeter] Respiratory Rate 16 16 16 Blood Pressure 137/70 133/90 H Blood Pressure [Left Arm] Blood Pressure [Right Arm] Pulse Oximetry 99 98 99 Oxygen Delivery Method Nasal Cannula Nasal Cannula Nasal Cannula Oxygen Flow Rate 3 3 3 11/20/24 14:40 11/20/24 14:50 11/20/24 15:00 Temperature 97.7 F 97.6 F Pulse Rate 77 93 75 Pulse Rate [Left Pulse Oximeter] Respiratory Rate 16 16 16 Blood Pressure 143/69 H 163/132 H 159/81 H Blood Pressure [Left Arm] Blood Pressure [Right Arm] Pulse Oximetry 94 93 90 Oxygen Delivery Method Room Air Room Air Room Air Oxygen Flow Rate 11/20/24 15:00 11/20/24 15:15 11/20/24 15:30 Temperature Pulse Rate 79 74 Pulse Rate [Left Pulse Oximeter] Respiratory Rate 16 Blood Pressure 152/86 H 158/79 H Blood Pressure [Left Arm] Blood Pressure [Right Arm] Pulse Oximetry 97 Oxygen Delivery Method Nasal Cannula Room Air Oxygen Flow Rate 0.5 11/20/24 15:45 11/20/24 16:15 11/20/24 16:45 Temperature Pulse Rate 71 73 86 Pulse Rate [Left Pulse Oximeter] Respiratory Rate Blood Pressure 156/82 H 156/82 H 165/101 H Blood Pressure [Left Arm] Blood Pressure [Right Arm] Pulse Oximetry Oxygen Delivery Method Oxygen Flow Rate 11/20/24 17:45 11/20/24 18:45 11/20/24 19:45 Temperature Pulse Rate 95 Pulse Rate [Left Pulse Oximeter] Respiratory Rate 16 Blood Pressure 143/89 H 129/67 155/89 H Blood Pressure [Left Arm] Blood Pressure [Right Arm] Pulse Oximetry 98 Oxygen Delivery Method Oxygen Flow Rate 11/20/24 20:45 11/20/24 23:00 11/20/24 23:00 Temperature 97.3 F L Pulse Rate 79 Pulse Rate [Left Pulse Oximeter] Respiratory Rate 16 18 18 Blood Pressure 130/76 Blood Pressure [Left Arm] Blood Pressure [Right Arm] Pulse Oximetry 94 94 Oxygen Delivery Method Room Air Room Air Oxygen Flow Rate 11/20/24 23:00 11/21/24 03:00 Temperature 98.4 F 97.8 F Pulse Rate Pulse Rate [Left Pulse Oximeter] 77 78 Respiratory Rate 18 18 Blood Pressure Blood Pressure [Left Arm] 149/74 H Blood Pressure [Right Arm] 105/63 Pulse Oximetry 94 94 Oxygen Delivery Method Room Air Room Air Oxygen Flow Rate Assessment and Plan Assessment and plan (1) Status post hip surgery: Problem details: Right hip IM jama 11-20-24 Status: Acute Assessment and Plan: Plan for discharge is likely to [facility] where she resides. [facility] is assessing her needs to see if she can return there and will discharge when they meets discharge criteria. DVT prophylaxis upon discharge Xarelto 10 mg daily for 35 days Remove dressing 10 days. Observe wound and phone Orthopedics with any questions or concerns Use Ice on operative hip unrestricted. Return to clinic in 4-6 weeks with surgeon Minimize narcotic use. Wean off and discontinue soon as possible. Weightbear as tolerated right lower extremity. Attend PT and OT daily at half-way facility Medications will be sent to her pharmacy once the pharmacy is known.
[2024-11-21] MEDS: SERTRALINE 50 MG TABLET PO (07:58)
[2024-11-21] MEDS: SENNOSIDES 1 TAB TABLET 2 TAB PO ×2 (07:59→20:34)
[2024-11-21] MEDS: RIVAROXABAN 10 MG TABLET PO (07:59)
[2024-11-21] MEDS: QUETIAPINE 25 MG TABLET PO ×2 (07:59→20:34)
[2024-11-21] MEDS: LIDOCAINE 5% PATCH 1 PATCH TRANSDERMA (08:00)
--- NOTE | 2024-11-21 09:00 | NUTR.NU ---
RDN with nutrition screen related to positive skin risk. Patient admitted for mechanical fall at home, s/p day 1 of Right ANN. Patient resides at [facility]. Current weight 164lb 1.6oz; height 5ft 7in; BMI 25.7 kg/m2. RDN suspects current weight was entered in error, patient's weight history shows weight consistently in 130s lbs. current diet is NPO. Patient had dinner 11/20 which was consumed at 100%. Per MD, patient is currently experiencing post-op delirium. Waiting for this to clear. No nutrition interventions at this time with current status. RDN will continue to monitor and follow-up prn.
--- NOTE | 2024-11-21 11:29 | PC.NURSE ---
Spoke with Enedina RN at [facility]. Stated patient was independent at their facility before falling. Walks 2 miles a day around their campus. Likes to color and watch channel 5 news. Does not have any dietary restrictions. Was able to perform her ADLs by herself with cueing. Likes a lidocaine patch on lower back and left hip. They encouraged us to call with more questions if needed.
[2024-11-21] MEDS: LIDOCAINE 5% PATCH 2 PATCH TRANSDERMA (12:40)
--- NOTE | 2024-11-21 14:27 | PC.SOCIAL ---
Discharge Planning: BRE spoke with Rocio at [facility] to discuss their options for PT in Enhanced Care. Rocio states that patients could receive daily PT/OT in Enhanced Care. Rocio states for cost it would be $550-$680 a day and the family would need to continue to pay for patient?s room in Memory Care. Rocio asked about weight bearing and transfers and BRE informed that patient is weight bearing as tolerated and transferring with assist of 1 and walking with assist of 1 or 2. ? BRE spoke with the patient?s son by phone. BRE updated that PT evaluated and found that patient will need daily PT. BRE discussed the options of TCU vs. Enhanced Care at [facility]. BRE explained the cost would be $550-$680 a day on top of still needing to pay for patient?s room in memory care. Patient?s son states that he would like a referral sent to [facility] in [place] for TCU and he would connect with [facility] to see if there could be any discounts for them. ? BRE sent referral via secure email to Bethany at [facility] for review. BRE awaiting response. ?
--- NOTE | 2024-11-21 17:45 | PC.NURSE ---
1400-patient still unable to void after tom discontinued at 0800. Brought to bathroom and had a BM, but no void. Bladder scanned for a total of 130mL. Dr. Hsieh notified. Informed to give patient until 1700 to void and push fluids. Patient racheal back to that bathroom at 1700 after pushing fluids. Voided into toilet. Some urine captured in hat, but most went into the toilet. MD notified. Will continue to monitor and push oral hydration.
[2024-11-21] MEDS: lisinopriL 20 MG TABLET 40 MG PO (20:34)
[2024-11-22] VITALS (7 sets, daily range): BP systolic 132–157; BP diastolic 65–92; PULSE 72–81; RESP 16–20; TEMP 36.2–36.7; O2SAT 94–99
[2024-11-22] MEDS: ACETAMINOPHEN 325 MG TABLET 650 MG PO ×3 (05:54→18:07)
[2024-11-22 06:19] LABS: Hematocrit 27.1 % (33.0-51.0); Hemoglobin* 9.1 gm/dL (12.0-16.0); Mean Corpuscular HGB Conc 34 gm/dL (32-36); Mean Corpuscular Hemoglobin 35 pg (26-34); Mean Corpuscular Volume 105 fL (80-100); Platelet Count* 207 K/uL (140-440); Red Blood Count 2.59 m/uL (4.00-5.20); White Blood Count* 9.06 K/uL (4.50-11.00)
--- NOTE | 2024-11-22 06:23 | PC.NURSE ---
Pt alert and oriented x3. Afebrile. Pt denies pain, SOB, and N/V. Pt's right hip dressing as CDI. Pt is up A1 with walker and gait belt, voiding, and tolerating a regular diet. Pt had x1 smear of BM. Pt slept throughout most of night. Night uneventful.
[2024-11-22 06:25] LABS: Slide Review Reflex No
[2024-11-22 06:33] LABS: Potassium* 4.6 mmol/L (3.6-5.1); Sodium* 131 mmol/L (135-149)
[2024-11-22 06:36] LABS: Blood Urea Nitrogen* 22 mg/dL (7-30); Creatinine* 0.8 mg/dL (0.5-1.5); Est. Creatinine Clearance* 42.18; Estimated Glomerular Filt Rate 74 ml/min
--- NOTE | 2024-11-22 08:23 | PM.ORPN ---
Subjective Subjective Time Seen by Provider: 08:23 Date Seen: 11/22/24 Principal diagnosis: Status post right hip IM rodding Interval history: Daiana Espinal is comfortable in her recliner this morning. She is waiting for discharge planning assisted facility. Ortho Exam Narrative Exam Narrative: Alert and conversive. Patient is in no acute distress. Converses without labored breathing. Hearing is grossly intact. Ambulates with a walker. Examination of right lower extremity shows the dressings are intact. Mild soft tissue edema about the thigh. No erythema or warmth or sign of infection. She is able to dorsiflex and plantar flex her right ankle and great toe. CMS intact right lower extremity. Calves are soft and nontender. Const Vital Signs, click to edit/add: Vital Signs - 24 hr 11/21/24 11:36 11/21/24 14:43 11/21/24 15:00 Temperature 97.2 F L 98.2 F Pulse Rate [Left Pulse Oximeter] 79 73 73 Respiratory Rate 16 20 20 Blood Pressure [Left Arm] 139/68 Blood Pressure [Right Arm] Pulse Oximetry 95 97 Oxygen Delivery Method Room Air Room Air 11/21/24 15:00 11/21/24 19:00 11/21/24 23:00 Temperature 97.5 F L 98.4 F Pulse Rate [Left Pulse Oximeter] 75 74 Respiratory Rate 20 20 16 Blood Pressure [Left Arm] 156/81 H Blood Pressure [Right Arm] 132/61 Pulse Oximetry 97 96 95 Oxygen Delivery Method Room Air Room Air Room Air 11/21/24 23:00 11/22/24 02:29 Temperature 98.1 F Pulse Rate [Left Pulse Oximeter] 73 Respiratory Rate 16 20 Blood Pressure [Left Arm] 146/73 H Blood Pressure [Right Arm] Pulse Oximetry 95 94 Oxygen Delivery Method Room Air Documenting provider has reviewed patient's vital signs: yes Assessment and Plan Assessment and plan (1) Status post hip surgery: Problem details: Right hip IM rodding 11-20-24. Maikel. Status: Acute Assessment and Plan: Plan for discharge when they meets discharge criteria and when placement is available.. DVT prophylaxis upon discharge Xarelto 10 mg daily for 35 days Remove dressing 10 days Observe wound and phone Orthopedics with any questions or concerns Use Ice on operative hip unrestricted. Return to clinic in 4-6 weeks with surgeon Minimize narcotic use. Wean off and discontinue soon as possible. Weightbear as tolerated right lower extremity. PT and OT at assisted facility and on med surg
--- NOTE | 2024-11-22 08:54 | P.IMPN_ITS ---
Assessment and Plan Assessment and plan (1) Status post hip surgery: Problem comment: Right hip IM rodding 11-20-24. Maikel. 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 - 11/19/24 Hgb 13. Since she has a long bone fracture, she will likely have some blood loss. Will start gentle IVF. Status: Chronic (6) Generalized anxiety disorder: Problem comment: citalopram started 04/28, citalopram increased 02/28 (and morning, low-dose Seroquel started 02/24 for for agitation related to the anxiety/cognitive impairment), no longer on citalopram, now takes sertraline - Continue sertraline and quetiapine Status: Chronic (7) Coronary artery disease: Problem comment: s/p inferior wall M.I. and cardiac stenting (mid RCA and staged mid LAD stent) 2005, metoprolol stopped 05/28 due to bradycardia Status: Chronic Subjective Date Seen: 11/22/24 Interval history: Daily Progress Note - Hospital Medicine Day #: 4 DOI 11/19 POD #2 Right hip fracture ORIF SURGEON: Kevin Ko MD ANESTHESIA: Spinal ESTIMATED BLOOD LOSS: 25 mL COMPLICATIONS: None CC: Right intertrochanteric hip fracture, witnessed fall, at [facility]. s/p ORIF. Baseline Dementia. post op delirium resolving. 24 HOUR UPDATE: slept much better last night. less calling out/less anxiety. Notable Labs, Micro, Rads, Interventions: All her vital signs have been reviewed are unremarkable/stable. she is on room air. No new labs this morning, ER labs been reviewed. Hemoglobin is down 3 grams postoperatively. Sodium was mildly depressed at 131. Intact renal function. No urine obtained. MRSA negative EKG reviewed. NSR. Right intertrochanteric hip fracture Objective: moving well; feeding herself. word finding and short term memory deficits. Vitals: see above Lungs: Clear. Cardiac: S1S2. No harsh murmurs. Disposition/Potential discharge - Likely will need short-term rehab after medical and operative interventions. Today I spent 50minutes seeing the patient, reviewing Expanse and EPIC notes/diagnostics, discussing the care plan with our care time that includes social work, PT/OT, pharmacy, RT, residential and documenting my impressions and plan in the medical record. Exam Const: Vital Signs, click to edit/add: Vital Signs - 24 hr 11/21/24 11:36 11/21/24 14:43 11/21/24 15:00 Temperature 97.2 F L 98.2 F Pulse Rate [Left P ulse Oximeter] 79 73 73 Respiratory Rate 16 20 20 Blood Pressure [Le ft Arm] 139/68 Blood Pressure [Ri ght Arm] Pulse Oximetry 95 97 Oxygen Delivery Me thod Room Air Room Air 11/21/24 15:00 11/21/24 19:00 11/21/24 23:00 Temperature 97.5 F L 98.4 F Pulse Rate [Left P ulse Oximeter] 75 74 Respiratory Rate 20 20 16 Blood Pressure [Le ft Arm] 156/81 H Blood Pressure [Ri ght Arm] 132/61 Pulse Oximetry 97 96 95 Oxygen Delivery Me thod Room Air Room Air Room Air 11/21/24 23:00 11/22/24 02:29 Temperature 98.1 F Pulse Rate [Left P ulse Oximeter] 73 Respiratory Rate 16 20 Blood Pressure [Le ft Arm] 146/73 H Blood Pressure [Ri ght Arm] Pulse Oximetry 95 94 Oxygen Delivery Me thod Room Air Labs Labs: Laboratory Results - last 24 hr 11/22/24 05:51 WBC 9.06 RBC 2.59 L Hgb 9.1 L Hct 27.1 L MCV 105 H MCH 35 H MCHC 34 Plt Count 207 Sodium 131 L Potassium 4.6 BUN 22 Creatinine 0.8 Estimated Creat Clear 42.18 Estimated GFR 74
[2024-11-22] MEDS: SERTRALINE 50 MG TABLET PO (08:58)
[2024-11-22] MEDS: SENNOSIDES 1 TAB TABLET 2 TAB PO ×2 (08:58→20:12)
[2024-11-22] MEDS: RIVAROXABAN 10 MG TABLET PO (08:59)
[2024-11-22] MEDS: QUETIAPINE 25 MG TABLET PO ×2 (08:59→20:12)
[2024-11-22] MEDS: LIDOCAINE 5% PATCH 2 PATCH TRANSDERMA (12:39)
[2024-11-22] MEDS: OXYCODONE 5 MG TABLET PO ×2 (15:05→23:20)
--- NOTE | 2024-11-22 16:09 | PC.SOCIAL ---
Discharge planning: Pt will admit to [facility] tomorrow. The pt's family preferred the Enhanced Assisted Living at [facility] vs. [facility](pt was accepted at [facility]) because the pt is familiar with the [facility] campus and staff. The [facility] van will pick the pt up tomorrow at 10am at the main entrance of the hospital. workers compensation specialist notified the provider and charge nurse on duty of this update. Pt's son, Jn, was notified of the transport time for tomorrow. workers compensation specialist notified the charge nurse that [facility] uses [facility] and should take and electronic narcotic prescription. ROLANDA Chan from [facility] will call med/surg for a nurse to nurse report before the pt discharges. Rocio's number is #[phone]. Discharge orders can be secure emailed to Rocio at [email or web address]. Social work to follow-up as needed.
--- NOTE | 2024-11-22 19:13 | PC.NURSE ---
Nursing Care Hours: [id number] Pt this shift calm and cooperative, alert and oriented to self. Pain reported intermittently with certain positions, otherwise tolerating walking Ax1 to and from BR. Half tab oxy given PRN and effective without SE. VSS. Tolerating regular diet. Anxious about daily activities and who will be helping as well as anxious about diet. Just wanting to order PB toast only d/t hemochromotosis per pt. Had Lg BM this shift with some straining.
[2024-11-22] MEDS: lisinopriL 20 MG TABLET 40 MG PO (20:12)
[2024-11-22] MEDS: LORazepam 0.5 MG TABLET PO (20:55)
[2024-11-23] MEDS: ACETAMINOPHEN 325 MG TABLET 650 MG PO ×2 (00:01→05:59)
[2024-11-23 03:00] VITALS: BP 158/81; PULSE 72; RESP 18; TEMP 36.9; O2SAT 94
[2024-11-23] MEDS: OXYCODONE 5 MG TABLET PO (03:42)
[2024-11-23 06:22] LABS: Hematocrit 26.5 % (33.0-51.0); Hemoglobin* 8.7 gm/dL (12.0-16.0); Mean Corpuscular HGB Conc 33 gm/dL (32-36); Mean Corpuscular Hemoglobin 35 pg (26-34); Mean Corpuscular Volume 105 fL (80-100); Platelet Count* 224 K/uL (140-440); Red Blood Count 2.52 m/uL (4.00-5.20); White Blood Count* 8.25 K/uL (4.50-11.00)
[2024-11-23 06:24] LABS: Slide Review Reflex No
--- NOTE | 2024-11-23 06:24 | PC.NURSE ---
Pt alert and oriented to self only. Afebrile. Pt reports moderate pain in right hip, pain managed with cold pack and scheduled and PRN medications. Pt is up A1 with walker and gait belt, voiding, and tolerating a regular diet. Pt slept throughout most of night. Night uneventful.
[2024-11-23 06:38] LABS: Potassium* 4.2 mmol/L (3.6-5.1); Sodium* 134 mmol/L (135-149)
[2024-11-23 06:41] LABS: Blood Urea Nitrogen* 22 mg/dL (7-30); Creatinine* 0.8 mg/dL (0.5-1.5); Est. Creatinine Clearance* 42.18; Estimated Glomerular Filt Rate 74 ml/min
[2024-11-23 07:00] VITALS: BP 145/83; PULSE 71; RESP 18; TEMP 36.5; O2SAT 96
[2024-11-23] MEDS: SERTRALINE 50 MG TABLET PO (08:21)
[2024-11-23] MEDS: QUETIAPINE 25 MG TABLET PO (08:21)
[2024-11-23] MEDS: RIVAROXABAN 10 MG TABLET PO (08:21)
[2024-11-23] MEDS: SENNOSIDES 1 TAB TABLET 2 TAB PO (08:21)
--- NOTE | 2024-11-23 09:57 | PC.SOCIAL ---
Social work: Spoke with Rocio at [facility] who is expecting pt to be picked up by van at 10:00 this morning. Rocio to call RN for nurse to nurse. hot iron worker faxed all requested information on this patient to Rocio. Awaiting van for discharge.
--- NOTE | 2024-11-23 10:16 | PC.NURSE ---
Discharge - Pt alert, oriented to self and situation. Pt was pleasant and followed direction, however did appear to be anxious related to medication, ambulation, and discharge. RN provided emotional support, pt verbalized improved emotional state. Pt up with standby assistance and walker/gait belt. Tolerating RA and regular diet. Reported pain in operative hip, described as sore but was unable to rate on 1-10 scale. Medication to improve comfort offered by RN and refused by pt. Ice pack in place, dressing CDI x 2, pedal pulse present. Pt discharged to [facility] via wheelchair and [facility] provided transport at approximately 1010.
--- NOTE | 2024-11-23 16:12 | P.DS_ITS ---
DS: Providers Provider Date Seen: 11/23/24 Date of admission: 11/19/24 15:19 Primary care physician: Not a Local Provider Admitting Clinician: Traci Salinas MD Consults: 11/19/24 15:19 Consult to Physician [CONS] Routine Comment: Consulting Provider: Danya Ramos Has provider been notified: Yes Consult to Fabric Normalizer [CONS] Routine Comment: Reason for Consult:: Discharge Planning Needs 11/20/24 14:52 Consult to Occupational Therapy [CONS] Routine Comment: Reason(s) for OT Consult:: Evaluate and Treat Any Restrictions?:: See Comment Comment: evaluate and treat Consult to Physical Therapy [CONS] Routine Comment: Reason(s) for PT Consult:: Evaluate and Treat Any Restrictions?:: See Comment Comment: Weightbear as tolerates right lower extremity Consult to Fabric Normalizer [CONS] Routine Comment: Reason for Consult:: Discharge Planning Needs Attending Physician on discharge: Jose M Marroquin MD Date of Discharge: 11/23/24 DS: Diagnosis Discharge Diagnosis (1) Intertrochanteric fracture: Status: Acute Problem details: - right - ORIF 11/20/24 - rivaroxaban 10mg daily - OT/PT continues - TCU stay planned (2) Fall: Status: Acute Problem details: - Mechanical, Observed, 11/19/2024 - PT/OT evaluation after surgery (3) Status post hip surgery: Status: Acute Problem details: Right hip IM rodding 11-20-24. Maikel. (4) Coronary artery disease: Status: Chronic Problem details: s/p inferior wall M.I. 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 - 4/14/25 Hgb 13. Since she has a long bone fracture, she will likely have some blood loss. Will start gentle IVF. (7) Generalized anxiety disorder: Status: Chronic Problem details: citalopram started 04/28, citalopram increased 02/28 (and morning, low-dose Seroquel started 02/24 for for agitation related to the anxiety/cognitive impairment), no longer on citalopram, now takes sertraline - Continue sertraline and quetiapine DS: Summary Hospital Course Hospital Course: Admission history of present illness: ?84 year old female who lives at memory care at [facility] who fell upon getting up from a nap in a chair today. She tells me her shoes felt slippery, which caused her to twist and fall. She denies hitting her head. She is not a good historian and repeated various information, stories and phrases frequently. ?Her son, Ely Rolan Mike, and his came around 1800. I went back to the room and spoke with them. They were agreeable with the plan.? Surgery undertaken without complications. Did have postoperative delirium for couple of days which then normalized. In time the decision was made to have the patient return to the assisted living facility with additional services to support her as noted below. Status at Discharge Functional status at discharge: uses cane/walker Overall status at discharge: patient is progressing back to baseline Time Spent with Patient Time attestation: Total time spent providing and/or coordinating discharge services: Time spent: Less than 30 minutes Exam Narrative: Exam Narrative: Objective: moving well; feeding herself. word finding and short term memory deficits. Vitals: see above Lungs: Clear. Cardiac: S1S2. No harsh murmurs. Ambulating with assist of 1 and walker Const: Vital Signs, click to edit/add: Vital Signs - 24 hr 11/22/24 19:14 11/22/24 19:54 11/22/24 23:20 Temperature 97.3 F L 97.3 F L Pulse Rate [Left P ulse Oximeter] 72 Respiratory Rate 18 18 Blood Pressure [Le ft Arm] 154/72 H Blood Pressure [Ri ght Arm] Pulse Oximetry 99 97 Oxygen Delivery Me thod Room Air Room Air Oxygen Flow Rate 0 11/22/24 23:20 11/23/24 03:00 11/23/24 07:00 Temperature 97.7 F 98.5 F Pulse Rate [Left P ulse Oximeter] 77 72 Respiratory Rate 16 18 18 Blood Pressure [Le ft Arm] 157/92 H 158/81 H Blood Pressure [Ri ght Arm] Pulse Oximetry 97 94 96 Oxygen Delivery Me thod Room Air Room Air Room Air Oxygen Flow Rate 11/23/24 07:00 Temperature 97.7 F Pulse Rate [Left P ulse Oximeter] 71 Respiratory Rate 18 Blood Pressure [Le ft Arm] Blood Pressure [Ri ght Arm] 145/83 H Pulse Oximetry 96 Oxygen Delivery Me thod Room Air Oxygen Flow Rate DS: Data Data Completed and Pending Labs on day of discharge: Labs from last 24 hours 11/23/24 11/23/24 05:37 04:00 WBC 8.25 RBC 2.52 L Hgb 8.7 L Hct 26.5 L MCV 105 H MCH 35 H MCHC 33 Plt Count 224 Sodium 134 L Potassium 4.2 BUN 22 Creatinine 0.8 Estimated Creat Clear 42.18 Estimated GFR 74 Imaging Chest x-ray: Radiologist's impression: No acute cardiopulmonary process CT scan of cervical spine: Radiologist's impression: Impression: Moderate degenerative changes of the cervical spine without acute osseous abnormality. CT scan - head: Radiologist's impression: Findings: There is no intra-axial or extra-axial fluid collection. There is no mass effect or midline shift. There is age-related cortical atrophy with mild sulcal widening and ex vacuo dilatation of the lateral ventricles. There are chronic small vessel disease changes in the subcortical and periventricular white matter without lost lockett-white differentiation. The orbits and their contents are grossly within normal limits. The bony calvarium is grossly intact. The paranasal sinuses are clear. The mastoid air cells are well aerated. Impression: 1. Age-related changes of the brain without acute intracranial abnormality. X-ray of the hip: Radiologist's impression: Impression: 1. Decreased bone mineral density. 2. Moderate arthritic changes at both hip joints. 3. Right intertrochanteric hip fracture. No additional fractures noted X-ray of the femur: Radiologist's impression: FINDINGS: Right hip ORIF. Discharge Plan Discharge Disposition: [facility] Date of Admission: 11/19/24 15:19 Attending Provider on Discharge: Jose M Marroquin Consulting Providers: Danya Ramos Primary Care Provider: Provider,Not a Local Condition: Stable Anticipated Discharge Date/Time: 11/23/24 10:00 Discharge Medications: New sennosides [Senna Lax] 8.6 mg Tablet 17.2 mg PO BID PRN (Reason: constipation) Qty: 100 0RF Xarelto 10 mg tablet 10 mg PO DAILY Qty: 33 0RF Rx Instructions: for 33 days oxycodone 5 mg tablet 2.5 mg PO Q6H PRN (Reason: pain) Qty: 10 0RF Continued Metamucil 3.4 gram/5.4 gram powder 1 tbsp PO QDAY Rx Instructions: mix into at least 8 oz of water or juice before administering sertraline 50 mg tablet 50 mg PO DAILY sennosides [senna] 8.6 mg tablet 8.6 mg PO BID polyethylene glycol 3350 [Gavilax] 17 gram powder in packet 17 g PO DAILY Deep Sea Nasal 0.65 % aerosol,spray 2 spray intranasal BID PRN lidocaine [Aspercreme (lidocaine)] 4 % adhesive patch,medicated 1 patch topical Q24H Rx Instructions: may leave on for up to 12 hrs glycerin Drops 1 drp ophthalmic (eye) BID Patient Comments: both eyes quetiapine [Seroquel] 25 mg tablet 25 mg PO BID lisinopril 40 mg tablet 40 mg PO HS Changed acetaminophen 500 mg tablet 1,000 mg PO TID Qty: 100 0RF Held aspirin 81 mg tablet,delayed release (DR/EC) 162 mg PO HS Hold Instructions: Resume on 12/20/24. resume after completing course of rivaroxaban Discharge Orders: Discharge Order (Routine); Ordered 11/23/24 Ordered By: Jose M Marroquin Additional Instructions: Staff please make appointment for Daiana Espinal with Dr. Ko 4-6 weeks postop Activity Level: Activity as Tolerated and Use Walker Activity Detail: Keep dressing on for 10 days. Dressing is waterproof. May shower. [facility]. Ice and elevate operative extremity without restriction. Swelling and bruising will worsen within the first week. When swelling occurs, elevate the extremity above heart level several times a day and gently massage/pull soft tissue swelling toward hip. This allows gravity to assist in eliminating the swelling/edema. Wear compression stockings/terence bandages as needed for swelling. Weightbear as tolerated right lower extremity. Notify Orthopedics with any questions or concerns. ([phone]) Discharge Diet: Regular Follow Up Appointments: Provider,Not a Local [Primary Care Provider] - Forms: [employer] Info Instructions Admit to: Assisted Living Discharge Potential: Fair Length of Stay: <30 days Can use facility standing orders?: Yes Code Status: DNR/DNI Rehab Potential: Fair Therapy: Physical Therapy and Occupational Therapy Therapy Orders: Evaluate and Treat Urinary Catheter: No Orders are good >30 days: Yes Signature: Jose M Marroquin
--- NOTE | 2024-11-23 19:19 | ED.GENADULT ---
HPI - General Adult General Date Seen: 11/19/24 Chief complaint: Extremity Pain/Injury, Lower Stated complaint: leg pain Time Seen by Provider: 11/19/24 11:33 History of Present Illness HPI narrative: This is an addendum to my patient's ER note from 11/19/2024. I inadvertently admitted documentation of my physical exam from the previous note Constitutional: Appears well-developed and well-nourished. Alert. Conversant. Non toxic. HENT: Head: Atraumatic. Nose: Nose normal. Mouth/Throat: Oral mucosa is clear and moist. no trismus. Pharynx normal. Eyes: Conjunctivae normal. EOM normal. Pupils equal, round, and reactive to light. No scleral icterus. Neck: Normal range of motion. Neck supple. No tracheal deviation present. Cardiovascular: Normal rate, regular rhythm. No gallop. No friction rub. No murmur heard. Symmetric radial artery pulses Pulmonary/Chest: Effort normal. No stridor. No respiratory distress. No wheezes. No rales. No rhonchi . No tenderness. Abdominal: Soft. No distension. No mass. No tenderness. No rebound. No guarding. Musculoskeletal: RUE: Normal range of motion. No tenderness. No deformity LUE: Normal range of motion. No tenderness. No deformity RLE: Normal range of motion. No edema. No tenderness. No deformity LLE: Normal range of motion. No edema. No tenderness. No deformity Neurological: Mental status normal. Attention normal. Alert and oriented x3. GCS 15. Memory normal. Speech fluent. Cognition normal. Cranial Nerves intact II-XII except I did not formally test gag or visual acuity. EOMI. Palate elevates symmetrically and tongue protrudes in the midline. Strength: 5/5 trapezius on the right and left 5/5 deltoid on the right and left 5/5 biceps on the right and left 5/5 triceps on the right and left 5/5 pmo project manager on the right and left 5/5 thumb opposition on the right and left 5/5 finger abduction on the right and left 5/5 hip flexors (L3) on the right and left 5/5 quadriceps (L4) on the right and left 5/5 tibialis anterior on the right and left 5/5 EHL (L5) on the right and left 5/5 gastrocnemius (S1) on the right and left 5/5 hamstring on the right and left Sensation intact to light touch in both upper extremities (C4-T1) Sensation intact to light touch in Both lower extremities (L4-S1). Finger to nose and coordination normal. Gait normal. NIH stroke scale = 0 Psychiatric: Normal mood. Normal affect. Related Data Home Medications ?Medication ?Instructions ?Recorded ?Confirmed aspirin 81 mg tablet,delayed 162 mg PO HS 03/22/22 11/19/24 release psyllium husk 3.4 gram/5.4 gram 1 tbsp PO QDAY 10/08/22 11/19/24 oral powder (Metamucil) glycerin 1 drp ophthalmic (eye) BID 11/19/24 11/19/24 lidocaine 4 % topical patch 1 patch topical Q24H 11/19/24 11/19/24 (Aspercreme (lidocaine)) lisinopril 40 mg tablet 40 mg PO HS 11/19/24 11/19/24 polyethylene glycol 3350 17 gram 17 g PO DAILY 11/19/24 11/19/24 oral powder packet (Gavilax) quetiapine 25 mg tablet (Seroquel) 25 mg PO BID 11/19/24 11/19/24 sennosides 8.6 mg tablet (senna) 8.6 mg PO BID 11/19/24 11/19/24 sertraline 50 mg tablet 50 mg PO DAILY 11/19/24 11/19/24 sodium chloride 0.65 % nasal spray 2 spray intranasal BID PRN 11/19/24 11/19/24 aerosol (Deep Sea Nasal) Previous Rx's ?Medication ?Instructions ?Recorded acetaminophen 500 mg tablet 1,000 mg (2 x 500 mg) PO TID #100 11/23/24 tabs oxycodone 5 mg tablet 2.5 mg (1/2 x 5 mg) PO Q6H PRN 11/23/24 pain #10 tabs rivaroxaban 10 mg tablet (Xarelto) 10 mg PO DAILY DVT Prophylaxis #33 11/23/24 tabs sennosides 8.6 mg tablet (Senna 17.2 mg (2 x 8.6 mg) PO BID PRN 11/23/24 Lax) constipation #100 tabs Allergies Allergy/AdvReac Type Severity Reaction Status Date / Time No Known Allergies Allergy Unknown Verified 11/19/24 11:38 [facility] Medical History (Updated 11/22/24 @ 09:00 by Traci Salinas MD) Nausea (03/08/09) ?R11.0 - Nausea (ICD-10) Essential hypertension (01/24/20) ?I10 - Essential (primary) hypertension (ICD-10) 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) ?N99.3 - Prolapse of vaginal vault after hysterectomy (ICD-10) Peripheral neuropathy (11/20/14) ?G62.9 - Polyneuropathy, unspecified (ICD-10) Other hemochromatosis (07/18/19) ?E83.118 - Other hemochromatosis (ICD-10) Lumbar spondylosis (05/15/12) ?M47.816 - Spondylosis without myelopathy or radiculopathy, lumbar region (ICD-10) Jaw pain (08/23/11) ?R68.84 - Jaw pain (ICD-10) IBS (irritable bowel syndrome) (07/18/12) ?K58.9 - Irritable bowel syndrome, unspecified (ICD-10) Essential tremor (06/11/09) ?G25.0 - Essential tremor (ICD-10) Esophageal reflux (12/24/10) ?K21.9 - Gastro-esophageal reflux disease without esophagitis (ICD-10) Dyslipidemia (07/17/08) ?E78.5 - Hyperlipidemia, unspecified (ICD-10) Coronary artery disease due to lipid rich plaque ?I25.10 - Atherosclerotic heart disease of [place] coronary artery without angina pectoris (ICD-10) ?I25.83 - Coronary atherosclerosis due to lipid rich plaque (ICD-10) Mild cognitive impairment ?G31.84 - Mild cognitive impairment of uncertain or unknown etiology (ICD-10) Bradycardia ?R00.1 - Bradycardia, unspecified (ICD-10) Chest wall pain ?R07.89 - Other chest pain (ICD-10) Chronic nausea ?R11.0 - Nausea (ICD-10) Coronary artery disease ?I25.10 - Atherosclerotic heart disease of [place] coronary artery without angina pectoris (ICD-10) Generalized anxiety disorder ?F41.1 - Generalized anxiety disorder (ICD-10) Pelvic organ prolapse quantification stage 4 cystocele ?N81.10 - Cystocele, unspecified (ICD-10) Hereditary hemochromatosis ?E83.110 - Hereditary hemochromatosis (ICD-10) Subjective memory complaints ?R41.89 - Other symptoms and signs involving cognitive functions and awareness (ICD-10) Essential hypertension ?I10 - Essential (primary) hypertension (ICD-10) Vaginal erosion secondary to pessary use ?T83.89XA - Other specified complication of genitourinary prosthetic devices, implants and grafts, initial encounter (ICD-10) ?N89.8 - Other specified noninflammatory disorders of vagina (ICD-10) Surgical History (Updated 11/21/24 @ 08:55 by Traci Salinas MD) History of open reduction and internal fixation (ORIF) procedure (11/20/24) ?Z98.890 - Other specified postprocedural states (ICD-10) History of total abdominal hysterectomy and bilateral salpingo-oophorectomy ?Z90.710 - Acquired absence of both cervix and uterus (ICD-10) ?Z90.722 - Acquired absence of ovaries, bilateral (ICD-10) ?Z90.79 - Acquired absence of other genital organ(s) (ICD-10) History of cholecystectomy ?Z90.49 - Acquired absence of other specified parts of digestive tract (ICD-10) Family History (Updated 11/19/24 @ 14:27 by Lenore Lindsey MD) Brother Stroke Social History (Updated 11/19/24 @ 15:43 by Lenore Lindsey MD) Narrative: Memory care at [facility]. Her son is Dr. Jn Mike, a family medicine physician at the [facility]. She is (her has dementia). The patient is retired. She has 2 children. Alcohol use is none. She is a nonsmoker. POLST from 2023 states she is DNR, selective treatment, no feeding tube, IV antibiotics and meds are okay. What is your current living situation?: I presently have a place to live Problems where you live: no known problems Problems where you live details: N/A In the past 12 months, utilities in danger of being shut off: no In past 12 months, lack of transportation kept you from medical appts, meetings, work, or getting things needed for daily living: no In the past 12 mos, have been you worried that your food would run out before you had money to buy more?: never true In the past 12 mos, the food you bought just didn't last and you didn't have money to buy more?: never true Smoking Status: Former smoker How often do you have a drink containing alcohol: never How often do you have six or more drinks on one occasion: Never AUDIT-C Alcohol total score: 0 Non-prescribed substance use: denies use Caffeine: No How often does anyone, including family, friends and others, physically hurt you: never How often does anyone, including family, friends and others, insult or talk down to you: never How often does anyone, including family, friends and others, threaten you with harm: never How often does anyone, including family, friends and others, scream or curse at you: never service: No Course Vital Signs Vital signs: Initial Vital Signs Temperature 97.8 F 11/19/24 11:34 Temperature Source Temporal Artery Scan 11/19/24 11:34 Pulse Rate 63 11/19/24 11:34 Pulse Rhythm Regular 11/19/24 11:34 Pulse Strength 3+ Normal 11/19/24 11:34 Respiratory Rate 18 11/19/24 11:34 Blood Pressure 173/82 H 11/19/24 11:34 Blood Pressure Mean 112 H 11/19/24 11:34 Blood Pressure Position Supine 11/19/24 11:34 Pulse Oximetry 96 11/19/24 11:34 Oxygen Delivery Method Room Air 11/19/24 11:34 Vital Signs Temperature 97.8 F 11/19/24 11:34 Pulse Rate 63 11/19/24 11:34 Respiratory Rate 18 11/19/24 11:34 Blood Pressure 173/82 H 11/19/24 11:34 Pulse Oximetry 96 11/19/24 11:34 Oxygen Delivery Method Room Air 11/19/24 11:34 Temperature 97.7 F 11/23/24 07:00 Pulse Rate 71 11/23/24 07:00 Respiratory Rate 18 11/23/24 07:00 Blood Pressure 145/83 H 11/23/24 07:00 Pulse Oximetry 96 11/23/24 07:00 Oxygen Delivery Method Room Air 11/23/24 07:00 Oxygen Flow Rate 0 11/22/24 19:14 Medications Administered Medications: Discontinued Medications Generic Name Dose Route Start Last Admin Trade Name Freq PRN Reason Stop Dose Admin Acetaminophen 975 mg 11/19/24 15:19 11/19/24 20:54 Acetaminophen 325 Mg Tablet PO 975 mg Q6H PRN Administration pain or fever Acetaminophen 650 mg 11/20/24 18:00 11/23/24 05:59 Acetaminophen 325 Mg Tablet PO 650 mg Q6H SADIE Administration Artificial Tears 1 drop 11/19/24 21:00 11/20/24 07:36 Carboxymethylcellulose (Refresh Plus) Tears EYE-BOTH 1 drop BID SADIE Administration Cefazolin Sodium 0 gm 11/20/24 13:05 11/20/24 13:02 Cefazolin 1 Gm Inj IVP 11/20/24 13:06 1 gm ONCE ONE Administration Fentanyl 50 mcg 11/19/24 11:37 11/19/24 11:49 Fentanyl 100 Mcg/2 Ml Inj IVP 11/19/24 11:38 50 mcg ONCE ONE Administration Hydromorphone HCl 0.5 mg 11/19/24 12:43 11/19/24 12:50 Hydromorphone 0.5 Mg/0.5 Ml Inj IVP 0.5 mg Q1H PRN Administration Pain Hydromorphone HCl 0.2 - 0.5 mg 11/19/24 15:19 11/20/24 10:48 Hydromorphone 0.5 Mg/0.5 Ml Inj IVP 0.5 mg Q1H PRN Administration Breakthrough Pain Lactated Ringer's 1,000 mls @ 75 mls/hr 11/19/24 15:50 11/21/24 19:48 Lactated Ringers 1000 Ml IV Infused .[id number] SADIE Infusion Lactated Ringer's 1,000 mls @ 75 mls/hr 11/20/24 14:52 11/21/24 18:06 Lactated Ringers 1000 Ml IV Not Given .[id number] SADIE Cefazolin Sodium 1 gm/ Sodium 100 mls @ 200 mls/hr 11/20/24 19:00 11/21/24 19:48 Chloride IVPB 11/21/24 03:29 Infused Q8H SADIE Infusion Lidocaine 1 patch 11/19/24 15:30 11/20/24 07:47 Lidocaine 5% Patch TRANSDERMA 1 patch Q24H SADIE Administration Lidocaine 1 patch 11/20/24 18:00 11/22/24 05:24 Lidocaine 5% Patch TRANSDERMA Not Given Q24H SADIE Protocol Lidocaine 1 patch 11/21/24 08:00 11/21/24 08:00 Lidocaine 5% Patch TRANSDERMA 1 patch Q24H SADIE Administration Protocol Lidocaine 2 patch 11/21/24 11:34 11/22/24 12:39 Lidocaine 5% Patch TRANSDERMA 2 patch Q24H SADIE Administration Protocol Lisinopril 40 mg 11/19/24 21:00 11/19/24 20:43 Lisinopril 20 Mg Tablet PO 40 mg HS SADIE Administration Lisinopril 40 mg 11/20/24 21:00 11/22/24 20:12 Lisinopril 20 Mg Tablet PO 40 mg HS SADIE Administration Lorazepam 0.5 - 2 mg 11/20/24 14:52 11/22/24 20:55 Lorazepam 0.5 Mg Tablet PO 0.5 mg HS PRN Administration Sleep Ondansetron HCl 4 mg 11/19/24 11:37 11/19/24 11:49 Ondansetron 2 Mg/Ml Inj IVP 11/19/24 11:38 4 mg ONCE ONE Administration Oxycodone HCl 2.5 - 5 mg 11/19/24 15:19 11/20/24 05:40 Oxycodone 5 Mg Tablet PO 5 mg Q4H PRN Administration Pain Oxycodone HCl 2.5 - 10 mg 11/20/24 14:52 11/23/24 03:42 Oxycodone 5 Mg Tablet PO 5 mg Q2H PRN Administration Pain Quetiapine Fumarate 25 mg 11/19/24 21:00 11/20/24 07:36 Quetiapine 25 Mg Tablet PO 25 mg BID SADIE Administration Quetiapine Fumarate 25 mg 11/20/24 21:00 11/23/24 08:21 Quetiapine 25 Mg Tablet PO 25 mg BID SADIE Administration Rivaroxaban 10 mg 11/21/24 09:00 11/23/24 08:21 Rivaroxaban 10 Mg Tablet PO 10 mg DAILY SADIE Administration Sennosides 1 tab 11/19/24 21:00 11/20/24 07:48 Sennosides 1 Tab Tablet PO Not Given BID SADIE Sennosides 2 tab 11/20/24 21:00 11/23/24 08:21 Sennosides 1 Tab Tablet PO 2 tab BID SADIE Administration Sertraline HCl 50 mg 11/20/24 09:00 11/20/24 08:20 Sertraline 50 Mg Tablet PO Not Given DAILY SADIE Sertraline HCl 50 mg 11/21/24 09:00 11/23/24 08:21 Sertraline 50 Mg Tablet PO 50 mg DAILY SADIE Administration Sodium Chloride 5 ml 11/19/24 21:00 11/20/24 07:48 Sodium Chloride 0.9 % (Flush) 10 Ml Syringe IVF Not Given BID SADIE Medical Decision Making Lab Data Labs: Lab Results 11/19/24 Range/Units 12:41 WBC 7.33 (4.50-11.00) K/uL RBC 3.74 L (4.00-5.20) m/uL Hgb 13.0 (12.0-16.0) gm/dL Hct 38.4 (33.0-51.0) % MCV 103 H (80-100) fL MCH 35 H (26-34) pg MCHC 34 (32-36) gm/dL RDW Coeff of Michael 12.6 (11.5-15.5) % Plt Count 300 (140-440) K/uL Neut % (Auto) 72.7 H (42.0-72.0) % Lymph % (Auto) 15.6 L (20-44) % [place] % (Auto) 8.7 (0.0-11.0) % Eos % (Auto) 2.5 (0.0-7.0) % Baso % (Auto) 0.1 (0.0-3.0) % Neut # (Auto) 5.30 (1.7-7.0) K/uL Lymph # (Auto) 1.10 (0.90-2.90) K/uL [place] # (Auto) 0.60 (0.00-0.90) K/UL Eos # (Auto) 0.18 (0.00-0.50) K/uL Baso # (Auto) 0.01 (0.00-0.30) K/uL Abs Immat Gran (auto) 0.03 (0.00-0.30) K/uL Imm/Tot Granulo (auto) 0.4 % Sodium 132 L (135-149) mmol/L Potassium 4.8 (3.6-5.1) mmol/L Chloride 101 (96-114) mmol/L Carbon Dioxide 21 (20-32) mmol/L Anion Gap 10 (7-15) mEq/L BUN 23 (7-30) mg/dL Creatinine 0.9 (0.5-1.5) mg/dL Estimated GFR 64 ml/min Glucose 108 (60-115) mg/dL Calcium 9.8 (8.4-10.6) mg/dL Discharge Plan Discharge Clinical Impression: Intertrochanteric fracture, Fall Condition: Stable Activity Level: Activity as Tolerated and Use Walker Activity Detail: Keep dressing on for 10 days. Dressing is waterproof. May shower. Attend occupational therapy and physical therapy daily at [facility]. Ice and elevate operative extremity without restriction. Swelling and bruising will worsen within the first week. When swelling occurs, elevate the extremity above heart level several times a day and gently massage/pull soft tissue swelling toward hip. This allows gravity to assist in eliminating the swelling/edema. Wear compression stockings/terence bandages as needed for swelling. Weightbear as tolerated right lower extremity. Notify Orthopedics with any questions or concerns. ([phone]) Discharge Diet: Regular Admit to: Assisted Living Discharge Potential: Fair Length of Stay: <30 days Can use facility standing orders?: Yes Code Status: DNR/DNI Rehab Potential: Fair Therapy: Physical Therapy and Occupational Therapy Therapy Orders: Evaluate and Treat Urinary Catheter: No Orders are good >30 days: Yes Signature: Jose M Marroquin
== END 2024-11-23 10:10 | DRG 481 ==
LOC: ED 14:15 → MEDSURG 14:19
PROVIDERS: Orthopaedic Surgery; Admitting Provider Family Medicine; Emergency Provider Emergency Medicine; Visit Provider Family Medicine
PROC: (CPT 27245; principal; 2024-11-20 13:15)
DX: S72.141A Displaced intertrochanteric fracture of right femur, initial encounter for closed fracture (principal); D62 Acute posthemorrhagic anemia; I25.810 Atherosclerosis of coronary artery bypass graft(s) without angina pectoris; Z91.81 History of falling; W01.0XXA Fall on same level from slipping, tripping and stumbling without subsequent striking against object, initial encounter; Y92.099 Unspecified place in other non-institutional residence as the place of occurrence of the external cause; G89.18 Other acute postprocedural pain; I10 Essential (primary) hypertension; E83.110 Hereditary hemochromatosis; F41.1 Generalized anxiety disorder; G31.84 Mild cognitive impairment of uncertain or unknown etiology
CPT/HCPCS: 01210; 01230; 36415; 51701; 51798; 64447; 64450; 70450; 71045; 72125; 73502; 73551; 76000; 76942; 80048; 82565; 84132; 84295; 84520; 85025; 85027; 87081; 93005; 97110; 97116; 97161; 97162; 97165; 97530; 97535; 99100; 99281; 99284; 99285; A9270; C1713; J0690; J1100; J1171; J2371; J2405; J2704; J2795; J3010; J7120

== ENCOUNTER 2025-06-26 09:44 | Outpatient (REF) | payer MEDICARE, BC, SELFPAY ==
--- OUTSIDE RECORDS SUMMARY | 2021-09-04 00:57 | XMS_ITS | Continuity of Care Document ---
Author Organization [facility] Address [address] [address] [place] [address] Phone Care Team Providers Care Graduate Rn Name Role Phone Unavailable Unavailable Unavailable Allergies, [...] Diagnoses Date Provider Providers Copied on Encounter [facility], [address] [address], [place], [id number], [place] tel:[phone] [facility] No Information 2 No Information Justyn Kennedy MD. tel:[phone] [facility], [address] [address], [place], [address], [place] tel:[phone] [facility] Hereditary hemochromatosis 1 No Information [facility], [address] [address], [place], [place], [id number], [place] tel:[phone] [facility] Hereditary hemochromatosis 1 No Information Justyn Kennedy MD. tel:[phone] [facility], [address] [address], [place], [place], [address], [place] tel:[phone] [facility] Hereditary hemochromatosis 1 No Information Justyn Kennedy MD. tel:[phone] [facility], [address] [address], [place], [address], [place] tel:[phone] [facility] Hereditary hemochromatosis 1 No Information [facility], [address] [address], [place], [address], [place] tel:[phone] [facility] No Information 1 No Information [facility], [address] [address], [place], [address], [place] tel:[phone] [facility] Hereditary hemochromatosis Dec-2 0 No Information [facility], [address] [address], [place], [id number], [place] tel:[phone] [facility] Hereditary hemochromatosis Nov-3 0 0 No Information Justyn Kennedy MD. tel:[phone] [facility], [address] [address], [place], [id number], [place] tel:[phone] [facility] Hereditary hemochromatosis Jun- 0 No Information [facility], [address] [address], [place], [id number], [place] tel:[phone] [facility] Hereditary hemochromatosis May- 0 No Information [facility], [address] [address], [place], [id number], [place] tel:[phone] [facility] Hereditary hemochromatosis May- 0 No Information Telephone E&M II 11-20 Min CORRIE [facility], [address] [address], [place], [address], [place] tel:[phone] [facility] Comment (chief complaint) Hereditary hemochromatosis Oct-0 0 No Information Justyn Kennedy MD. tel:[phone] erring Provider: Cresencio Hong MD F, [address] [place] [address], [place], [address]. tel:[phone] Telephone E&M II 11-20 Min CORRIE [facility], [address] [address], [place], [id number], [place] tel:[phone] [facility] Comment (chief complaint) Hereditary hemochromatosisN auseaWeight loss Mar- 0 Dell Dalton. [address] [facility], [place] [address], [place], [place], [address], [place]. tel:[phone] Justyn Kennedy MD. tel:[phone] erring Provider: Referral Self, USE FOR SELF REFERRALS. [facility], [address] [address], [place] [address], [id number], [place] tel:[phone] [facility] Erythema of gastric antrumNauseaNaus eaDisease of stomach and duodenum, unspecified 0 John Acosta. [address] [place] [address], [id number], [place]. tel:[phone] Justyn Kennedy MD. tel:[phone] erring Provider: Referral Self, USE FOR SELF REFERRALS. Telephone E&M III 21-30 Min CORRIE [facility], [address] [address], [place], [id number], [place] tel:[phone] [facility] GI Symptoms or Concerns (chief complaint) Gastroesophageal reflux disease, esophagitis presence not specifiedNauseaH ereditary hemochromatosis 0 No Information Justyn Kennedy MD. tel:[phone] erring Provider: Referral Self, USE FOR SELF REFERRALS. [facility], [address] [address], [place], [id number], [place] tel:[phone] [facility] Abnormal levels of other serum enzymes 0 [facility] Johnnie. [address] [place] [address], [id number], [place]. tel:[phone] Justyn Kennedy MD. tel:[phone] erring Provider: Referral Self, USE FOR SELF REFERRALS. Telephone E&M III 21-30 Min CORRIE [facility], [address] [address], [place], [address], [place] tel:[phone] [facility] Comment (chief complaint) NauseaHereditary hemochromatosisE levated liver enzymes 0 [facility] Johnnie. [address] [place] [address], [id number], [place]. tel:[phone] Justyn Kennedy MD. tel:[phone] erring Provider: Referral Self, USE FOR SELF REFERRALS. [facility], [address] [address], [place] [address], [id number], [place] tel:[phone] [facility] Hereditary hemochromatosis 0 No Information Justyn Kennedy MD. tel:[phone] Offic/outpt E&m Estab Low-mod [facility], [address] [address], [place], [address], [place] tel:[phone] [facility] Comment (chief complaint) Hereditary hemochromatosis 0 No Information Justyn Kennedy MD. tel:[phone] erring Provider: Cresencio Gould, [address] [address], [place], [address]. tel:[phone] [facility], [address] [address], [place], [id number], [place] tel:[phone] [facility] Hereditary hemochromatosis 0 Yobani Dai. [address] [place] [address], [address], [id number], [place]. tel:[phone] Justyn Kennedy MD. tel:[phone] Offic/outpt E&m New Mod Sever [facility], [address] [address], [place], [id number], [place] tel:[phone] [facility] GI Symptoms or Concerns (chief complaint) Hereditary hemochromatosisE levated liver enzymesDietary counseling and surveillanceEsse ntial (primary) hypertension 0-201 9 Yobani Dai. [address] [facility], [address], [id number], [place]. tel:[phone] Justyn Kennedy MD. tel:[phone] erring Provider: Cresencio Gould, [address], [place], [address]. tel:[phone] [facility], [address] [address], [place], [id number], [place] tel:[phone] [facility] No Information 9 Claudette Orantes. [address] [place] [address], [id number], [place]. tel:[phone] Offic/outpt E&m Estab Mod-hi 2 [facility], [address] [address], [place], [id number], [place] tel:[phone] [facility] Abdominal pain (chief complaint) Irritable Bowel SyndromeGastroes ophageal Reflux 2 Renny Wolf. [address] [place] [address], [id number], [place]. tel:[phone] Referring Provider: Referral Self, USE FOR SELF REFERRALS. Offic/outpt E&m Estab Low-mod [facility], [address] [address], [place], [id number], [place] tel:[phone] [facility] Abdominal pain (chief complaint) Irritable Bowel SyndromeNausea Alone 2 No Information Referring Provider: Johnnie Briceño, [address] [place], [address]. tel:[phone] Offic/outpt E&m Estab Mod-hi 2 [facility], [address] [address], [place], [id number], [place] tel:[phone] [facility] Abdominal pain (chief complaint) Constipation Unspecified Nov-0 2 No Information Referring Provider: Johnnie Briceño, [address] [place], [address]. tel:[phone] [facility], [address] [address], [facility] [place], [id number], [place] tel:[phone] [facility] Gastroesophageal RefluxGastroduod enal Dis NosGastroduodena l Dis NosGastroesophag eal Reflux 1 Renny Wolf. [address] [place] [address], [id number], . tel:[phone] Referring Provider: Johnnie Briceño, [address] [place], [address]. tel:[phone] [facility], [address] [address], [place], [place], [id number], tel:[phone] Mony Sims [facility] Diverticulosis Of Colon 7-201 1 Renny Wolf. [address] [facility], [place], [place], [id number], . tel:[phone] Referring Provider: Johnnie Briceño, [address] [place], [address]. tel:[phone] [facility], [address] [address], [place], [place], [id number], tel:[phone] [facility] Colon Cancer ScreeningDiverti culosis Of Colon 2200 9 No Information Referring Provider: Johnnie Briceño, [address] [place], [address]. tel:[phone] Family History Family Member Type Diagnosis Age At Onset Mother Problem (finding) Cancer, unknown Father Problem (finding) gallbladder disease Brother Problem (finding) malignant neoplasm of p eber Son Problem (finding) Alive and well Brother [...] rectional interface ; Source: Other Registry Novel [id number], all formulations administered Note: [facility] bi-direct ional [...] Registry Payers Payer name Insurance type Covered constitution party ID Authoriza tion(s) Medicare NGS MB [id number] [facility] [id number] Social History Type Description Quantity Date Captured [...] And Pelvis WITH Contrast Appointment date/timeframe: 04/11/2020 ordered Referral Ordered: EGD Appointment date/timeframe: 03/14/2020 ordered Referral Ordered: follow-up visit with Anh Glass 1-2 weeks 1 Hour Appointment date/timeframe: 1-2 weeks ordered Referral Ordered: Hepatic Function Panel Appointment date/timeframe: 12/25/2019 ordered Referral Ordered: Iron/TIBC Appointment date/timeframe: 12/25/2019 ordered Referral Ordered: Ferritin Appointment date/timeframe: 12/25/2019 ordered Referral Ordered: HGB Appointment date/timeframe: 12/25/2019 ordered Referral Ordered: Phlebotomy Appointment date/timeframe: -today ordered History [...] for nausea.The patient was first seen by [facility] in July 2019. At that time [...] was taken to the emergency department at [facility]. There an x-ray was performed and [...] martha 1. Half unit ph[facility]bot shantelle at [facility]. Call the day after the phlebotomy. [phone], ext [phone] - [place] Related to Hereditary hemochromatosis 1. CT scan [...] phlebotomy3. My patient coordinator is Lita, ext [phone] Related to Hereditary hemochromatosis - It is great to jose t you today!- We will get baseline labs here today!- I will get the full labs from [facility]- We need to do liver biopsy to [...]
--- OUTSIDE RECORDS SUMMARY | 2021-09-04 00:57 | XMS_ITS | Continuity of Care Document ---
Author Organization [facility] Address [address] [address] [place] [address] Phone Care Team Providers Care Lap Machine Operator Name Role Phone Unavailable Unavailable Unavailable Allergies, [...] Diagnoses Date Provider Providers Copied on Encounter [facility], [address] [address], [place], [id number], [place] tel:[phone] [facility] No Information 2 No Information Justyn Kennedy MD. tel:[phone] [facility], [address] [address], [place], [place], [address], [place] tel:[phone] [facility] Hereditary hemochromatosis 1 No Information [facility], [address] [address], [place], [address], [place] tel:[phone] [facility] Hereditary hemochromatosis 1 No Information Justyn Kennedy MD. tel:[phone] [facility], [address] [address], [place], [address], [place] tel:[phone] [facility] Hereditary hemochromatosis 1 No Information Justyn Kennedy MD. tel:[phone] [facility], [address] [address], [place], [address], [place] tel:[phone] [facility] Hereditary hemochromatosis 1 No Information [facility], [address] [address], [place], [address], [place] tel:[phone] [facility] No Information 1 No Information [facility], [address] [address], [place], [address], [place] tel:[phone] [facility] Hereditary hemochromatosis Dec-2 0 No Information [facility], [address] [address], [place] [address], [id number], [place] tel:[phone] [facility] Hereditary hemochromatosis Nov-3 0 0 No Information Justyn Kennedy MD. tel:[phone] [facility], [address] [address], [place] [address], [address], [place] tel:[phone] [facility] Hereditary hemochromatosis Jun- 0 No Information [facility], [address] [address], [place] [address], [id number], [place] tel:[phone] [facility] Hereditary hemochromatosis May- 0 No Information [facility], [address] [address], [address] [address], [address], [place] tel:[phone] [facility] Hereditary hemochromatosis May- 0 No Information Telephone E&M II 11-20 Min CORRIE [facility], [address] [address], [place] [address], [id number], [place] tel:[phone] [facility] Comment (chief complaint) Hereditary hemochromatosis Oct-0 0 No Information Justyn Kennedy MD. tel:[phone] erring Provider: Cresencio Hong MD F, [address] [place] [address], [place], [address]. tel:[phone] Telephone E&M II 11-20 Min CORRIE [facility], [address] [address], [place] [address], [id number], [place] tel:[phone] [facility] Comment (chief complaint) Hereditary hemochromatosisN auseaWeight loss Mar- 0 Dell Dalton. [address] [facility], [place] [address], [place], [place], [address], [place]. tel:[phone] Justyn Kennedy MD. tel:[phone] erring Provider: Referral Self, USE FOR SELF REFERRALS. [facility], [address] [address], [address] [address], [id number], [place] tel:[phone] [facility] Erythema of gastric antrumNauseaNaus eaDisease of stomach and duodenum, unspecified 0 John Acosta. [address] [place] [address], [id number], [place]. tel:[phone] Justyn Kennedy MD. tel:[phone] erring Provider: Referral Self, USE FOR SELF REFERRALS. Telephone E&M III 21-30 Min CORRIE [facility], [address] [address], [place] [address], [id number], [place] tel:[phone] [facility] GI Symptoms or Concerns (chief complaint) Gastroesophageal reflux disease, esophagitis presence not specifiedNauseaH ereditary hemochromatosis 0 No Information Justyn Kennedy MD. tel:[phone] erring Provider: Referral Self, USE FOR SELF REFERRALS. [facility], [address] [address], [address] [address], [id number], [place] tel:[phone] [facility] Abnormal levels of other serum enzymes 0 [facility] Johnnie. [address] [place] [address], [id number], [place]. tel:[phone] Justyn Kennedy MD. tel:[phone] erring Provider: Referral Self, USE FOR SELF REFERRALS. Telephone E&M III 21-30 Min CORRIE [facility], [address] [address], [place], [address], [place] tel:[phone] [facility] Comment (chief complaint) NauseaHereditary hemochromatosisE levated liver enzymes 0 [facility] Johnnie. [address] [place] [address], [id number], [place]. tel:[phone] Justyn Kennedy MD. tel:[phone] erring Provider: Referral Self, USE FOR SELF REFERRALS. [facility], [address] [address], [place] [address], [address], [place] tel:[phone] [facility] Hereditary hemochromatosis 0 No Information Justyn Kennedy MD. tel:[phone] Offic/outpt E&m Estab Low-mod [facility], [address] [address], [place], [id number], [place] tel:[phone] [facility] Comment (chief complaint) Hereditary hemochromatosis 0 No Information Justyn Kennedy MD. tel:[phone] erring Provider: Cresencio Gould, [facility], [place], [address]. tel:[phone] [facility], [address] [address], [place] [address], [id number], [place] tel:[phone] [facility] Hereditary hemochromatosis 0 Yobani Dai. [address] [place] [address], [address], [id number], [place]. tel:[phone] Justyn Kennedy MD. tel:[phone] Offic/outpt E&m New Mod Sever [facility], [address] [address], [place], [id number], [place] tel:[phone] [facility] GI Symptoms or Concerns (chief complaint) Hereditary hemochromatosisE levated liver enzymesDietary counseling and surveillanceEsse ntial (primary) hypertension 0-201 9 Yobani Dai. [address] [facility], [address], [id number], [place]. tel:[phone] Justyn Kennedy MD. tel:[phone] erring Provider: Cresencio Gould, [address], [place], [address]. tel:[phone] [facility], [address] [address], [place], [id number], [place] tel:[phone] [facility] No Information 9 Claudette Orantes. [address] [place] [address], [id number], [place]. tel:[phone] Offic/outpt E&m Estab Mod-hi 2 [facility], [address] [address], [place], [id number], [place] tel:[phone] [facility] Abdominal pain (chief complaint) Irritable Bowel SyndromeGastroes ophageal Reflux 2 Renny Wolf. [address] [place] [address], [id number], [place]. tel:[phone] Referring Provider: Referral Self, USE FOR SELF REFERRALS. Offic/outpt E&m Estab Low-mod [facility], [address] [address], [place], [address], [place] tel:[phone] [facility] Abdominal pain (chief complaint) Irritable Bowel SyndromeNausea Alone 2 No Information Referring Provider: Johnnie Briceño, [address] [place], [address]. tel:[phone] Offic/outpt E&m Estab Mod-hi 2 [facility], [address] [address], [place], [id number], [place] tel:[phone] [facility] Abdominal pain (chief complaint) Constipation Unspecified Nov-0 2 No Information Referring Provider: Johnnie Briceño, [address] [place], [address]. tel:[phone] [facility], [address] [address], [facility] [place], [id number], [place] tel:[phone] [facility] Gastroesophageal RefluxGastroduod enal Dis NosGastroduodena l Dis NosGastroesophag eal Reflux 1 Renny Wolf. [address] [place] [address], [id number], . tel:[phone] Referring Provider: Johnnie Briceño, [address] [place], [address]. tel:[phone] [facility], [address] [address], [place], [place], [id number], tel:[phone] Mony Sims [facility] Diverticulosis Of Colon 7-201 1 Renny Wolf. [address] [facility], [place], [place], [id number], . tel:[phone] Referring Provider: Johnnie Briceño, [address] [place], [address]. tel:[phone] [facility], [address] [address], [place], [place], [id number], tel:[phone] [facility] Colon Cancer ScreeningDiverti culosis Of Colon 2200 9 No Information Referring Provider: Johnnie Briceño, [address] [place], [address]. tel:[phone] Family History Family Member Type Diagnosis Age [...] rectional interface ; Source: Other Registry Novel [id number], all formulations administered Note: [facility] bi-direct ional [...] Registry Payers Payer name Insurance type Covered libertarian ID Authoriza tion(s) Medicare NGS MB [id number] [facility] [id number] Social History Type Description Quantity Date Captured [...] for nausea.The patient was first seen by [facility] in July 2019. At that time [...] was taken to the emergency department at [facility]. There an x-ray was performed and [...] martha 1. Half unit phlebot shantelle at [facility]2. Call the day after the phlebotomy. [phone], ext [phone] - [place] Related to Hereditary [...] phlebotomy3. My patient coordinator is Lita, ext [phone] Related to Hereditary hemochromatosis - It is great to jose t you today!- We will get baseline labs here today!- I will get the full labs from [facility]- We need to do liver biopsy to [...]
--- OUTSIDE RECORDS SUMMARY | 2021-09-04 00:57 | XMS_ITS | Continuity of Care Document ---
Author Organization [facility] Address [address] [address] [place] [address] Phone Care Team Providers Care Assistant Shift Supervisor Name Role Phone Unavailable Unavailable Unavailable Allergies, [...] Diagnoses Date Provider Providers Copied on Encounter [facility], [address] [address], [place], [id number], [place] tel:[phone] [facility] No Information 2 No Information Justyn Kennedy MD. tel:[phone] [facility], [address] [address], [place], [id number], [place] tel:[phone] [facility] Hereditary hemochromatosis 1 No Information [facility], [address] [address], [place], [address], [place] tel:[phone] [facility] Hereditary hemochromatosis 1 No Information Justyn Kennedy MD. tel:[phone] [facility], [address] [address], [place], [id number], [place] tel:[phone] [facility] Hereditary hemochromatosis 1 No Information Justyn Kennedy MD. tel:[phone] [facility], [address] [address], [place], [id number], [place] tel:[phone] [facility] Hereditary hemochromatosis 1 No Information [facility], [address] [address], [place], [address], [place] tel:[phone] [facility] No Information 1 No Information [facility], [address] [address], [place], [id number], [place] tel:[phone] [facility] Hereditary hemochromatosis Dec-2 0 No Information [facility], [address] [address], [place], [id number], [place] tel:[phone] [facility] Hereditary hemochromatosis Nov-3 0 0 No Information Justyn Kennedy MD. tel:[phone] [facility], [address] [address], [place], [id number], [place] tel:[phone] [facility] Hereditary hemochromatosis Jun- 0 No Information [facility], [address] [address], [place] [address], [id number], [place] tel:[phone] [facility] Hereditary hemochromatosis May- 0 No Information [facility], [address] [address], [place], [id number], [place] tel:[phone] [facility] Hereditary hemochromatosis May- 0 No Information Telephone E&M II 11-20 Min CORRIE [facility], [address] [address], [place] [address], [id number], [place] tel:[phone] [facility] Comment (chief complaint) Hereditary hemochromatosis Oct-0 0 No Information Justyn Kennedy MD. tel:[phone] erring Provider: Cresencio Hong MD F, [address] [place] [address], [place], [address]. tel:[phone] Telephone E&M II 11-20 Min CORRIE [facility], [address] [address], [place] [address], [id number], [place] tel:[phone] [facility] Comment (chief complaint) Hereditary hemochromatosisN auseaWeight loss Mar- 0 Dell Dalton. [address] [facility], [place] [address], [place], [place], [address], [place]. tel:[phone] Justyn Kennedy MD. tel:[phone] erring Provider: Referral Self, USE FOR SELF REFERRALS. [facility], [address] [address], [place] [address], [id number], [place] tel:[phone] [facility] Erythema of gastric antrumNauseaNaus eaDisease of stomach and duodenum, unspecified 0 John Acosta. [address] [place] [address], [id number], [place]. tel:[phone] Justyn Kennedy MD. tel:[phone] erring Provider: Referral Self, USE FOR SELF REFERRALS. Telephone E&M III 21-30 Min CORRIE [facility], [address] [address], [place], [id number], [place] tel:[phone] [facility] Symptoms or Concerns (chief complaint) Gastroesophageal reflux disease, esophagitis presence not specifiedNauseaH ereditary hemochromatosis 0 No Information Justyn Kennedy MD. tel:[phone] erring Provider: Referral Self, USE FOR SELF REFERRALS. [facility], [address] [address], [place] [address], [id number], [place] tel:[phone] [facility] Abnormal levels of other serum enzymes 0 [facility] Johnnie. [address] [place] [address], [id number], [place]. tel:[phone] Justyn Kennedy MD. tel:[phone] erring Provider: Referral Self, USE FOR SELF REFERRALS. Telephone E&M III 21-30 Min CORRIE [facility], [address] [address], [place], [id number], [place] tel:[phone] [facility] Comment (chief complaint) NauseaHereditary hemochromatosisE levated liver enzymes 0 [facility] Johnnie. [address] [place] [address], [id number], [place]. tel:[phone] Justyn Kennedy MD. tel:[phone] erring Provider: Referral Self, USE FOR SELF REFERRALS. [facility], [address] [address], [place] [address], [id number], [place] tel:[phone] [facility] Hereditary hemochromatosis 0 No Information Justyn Kennedy MD. tel:[phone] Offic/outpt E&m Estab Low-mod [facility], [address] [address], [place], [id number], [place] tel:[phone] [facility] Comment (chief complaint) Hereditary hemochromatosis 0 No Information Justyn Kennedy MD. tel:[phone] erring Provider: Cresencio [place], [facility] [address], [place], [address]. tel:[phone] [facility], [address] [address], [place], [id number], [place] tel:[phone] [facility] Hereditary hemochromatosis 0 Yobani Dai. [address] [place] [address], [address], [id number], [place]. tel:[phone] Justyn Kennedy MD. tel:[phone] Offic/outpt E&m New Mod Sever [facility], [address] [address], [place], [id number], [place] tel:[phone] [facility] GI Symptoms or Concerns (chief complaint) Hereditary hemochromatosisE levated liver enzymesDietary counseling and surveillanceEsse ntial (primary) hypertension 0-201 9 Yobani Dai. [address] [facility], [address], [id number], [place]. tel:[phone] Justyn Kennedy MD. tel:[phone] erring Provider: Cresencio Gould, [address], [place], [address]. tel:[phone] [facility], [address] [address], [place], [id number], [place] tel:[phone] [facility] No Information 9 Claudette Orantes. [address] [place] [address], [id number], [place]. tel:[phone] Offic/outpt E&m Estab Mod-hi 2 [facility], [address] [address], [place], [id number], [place] tel:[phone] [facility] Abdominal pain (chief complaint) Irritable Bowel SyndromeGastroes ophageal Reflux 2 Renny Wolf. [address] [place] [address], [id number], [place]. tel:[phone] Referring Provider: Referral Self, USE FOR SELF REFERRALS. Offic/outpt E&m Estab Low-mod [facility], [address] [address], [place], [id number], [place] tel:[phone] [facility] Abdominal pain (chief complaint) Irritable Bowel SyndromeNausea Alone 2 No Information Referring Provider: Johnnie Briceño, [address] [place], [address]. tel:[phone] Offic/outpt E&m Estab Mod-hi 2 [facility], [address] [address], [place], [id number], [place] tel:[phone] [facility] Abdominal pain (chief complaint) Constipation Unspecified Nov-0 2 No Information Referring Provider: Johnnie Briceño, [address] [place], [address]. tel:[phone] [facility], [address] [address], [facility] [place], [id number], [place] tel:[phone] [facility] Gastroesophageal RefluxGastroduod enal Dis NosGastroduodena l Dis NosGastroesophag eal Reflux 1 Renny Wolf. [address] [place] [address], [id number], . tel:[phone] Referring Provider: Johnnie Briceño, [address] [place], [address]. tel:[phone] [facility], [address] [address], [place], [place], [address], tel:[phone] Mony Sims [facility] Diverticulosis Of Colon 7-201 1 Renny Wolf. [address] [facility], [place], [place], [id number], . tel:[phone] Referring Provider: Johnnie Briceño, [address] [place], [address]. tel:[phone] [facility] Dig[facility]ive [facility], [address] [address], [place], [place], [address], tel:[phone] [facility] Colon Cancer ScreeningDiverti culosis Of Colon 2200 9 No Information Referring Provider: Johnnie Briceño, [address] [place], [address]. tel:[phone] Family History Family Member Type Diagnosis Age [...] rectional interface ; Source: Other Registry Novel [id number], all formulations administered Note: [facility] bi-direct ional [...] Payer name Insurance type Covered democrat ID Authoriza tion(s) Medicare NGS MB [id number] [facility] [id number] Social History Type Description Quantity Date Captured [...] for nausea.The patient was first seen by [facility] in July 2019. At that time [...] was taken to the emergency department at [facility]. There an x-ray was performed and was [...] martha 1. Half unit phlebot shantelle at [facility]2. Call the day after the phlebotomy. [phone], ext [phone] - [place] Related to Hereditary [...] phlebotomy3. My patient coordinator is Lita, ext [phone] Related to Hereditary hemochromatosis - It is great to jose t you today!- We will get baseline labs here today!- I will get the full labs from [facility]- We need to do liver biopsy to [...]
--- OUTSIDE RECORDS SUMMARY | 2021-09-04 00:57 | XMS_ITS | Continuity of Care Document ---
Author Organization [facility] Address [address] [address] [place] [address] Phone Care Team Providers [employer] Membership Sales Agent Name Role Phone Unavailable Unavailable Unavailable Allergies, [...] [facility], [address] [address], [place], [address], [place] tel:[phone] [facility] No Information 2 No Information Justyn Kennedy MD. tel:[phone] [facility], [address] [address], [place], [address], [place] tel:[phone] [facility] Hereditary hemochromatosis 1 No Information [facility], [address] [address], [place], [place], [address], [place] tel:[phone] [facility] Hereditary hemochromatosis 1 No Information Justyn Kennedy MD. tel:[phone] [facility], [address] [address], [place], [place], [id number], [place] tel:[phone] [facility] Hereditary hemochromatosis 1 No Information Justyn Kennedy MD. tel:[phone] [facility], [address] [address], [place], [address], [place] tel:[phone] [facility] Hereditary hemochromatosis 1 No Information [facility], [address] [address], [place], [id number], [place] tel:[phone] [facility] No Information 1 No Information [facility], [address] [address], [place], [address], [place] tel:[phone] [facility] Hereditary hemochromatosis Dec-2 0 No Information [facility], [address] [address], [place] [address], [id number], [place] tel:[phone] [facility] Hereditary hemochromatosis Nov-3 0 0 No Information Justyn Kennedy MD. tel:[phone] [facility], [address] [address], [place] [address], [id number], [place] tel:[phone] [facility] Hereditary hemochromatosis Jun- 0 No Information [facility], [address] [address], [address] [address], [id number], [place] tel:[phone] [facility] Hereditary hemochromatosis May- 0 No Information [facility], [address] [address], [address] [address], [id number], [place] tel:[phone] [facility] Hereditary hemochromatosis May- 0 No Information Telephone E&M II 11-20 Min CORRIE [facility], [address] [address], [address] [address], [id number], [place] tel:[phone] [facility] Comment (chief complaint) Hereditary hemochromatosis Oct-0 0 No Information Justyn Kennedy MD. tel:[phone] erring Provider: Cresencio Hong MD F, [address] [place] [address], [place], [address]. tel:[phone] Telephone E&M II 11-20 Min CORRIE [facility], [address] [address], [place] [address], [id number], [place] tel:[phone] [facility] Comment (chief complaint) Hereditary hemochromatosisN auseaWeight loss Mar- 0 Dell Dalton. [address] [facility] [place] [address], [place], [place], [id number], [place]. tel:[phone] Justyn Kennedy MD. tel:[phone] erring Provider: Referral Self, USE FOR SELF REFERRALS. [facility], [address] [address], [place] [address], [id number], [place] tel:[phone] [facility] Erythema of gastric antrumNauseaNaus eaDisease of stomach and duodenum, unspecified 0 John Acosta. [address] [place] [address], [id number], [place]. tel:[phone] Justyn Kennedy MD. tel:[phone] erring Provider: Referral Self, USE FOR SELF REFERRALS. Telephone E&M III 21-30 Min CORRIE [facility], [address] [address], [place] [address], [id number], [place] tel:[phone] [facility] GI Symptoms or Concerns (chief complaint) Gastroesophageal reflux disease, esophagitis presence not specifiedNauseaH ereditary hemochromatosis 0 No Information Justyn Kennedy MD. tel:[phone] erring Provider: Referral Self, USE FOR SELF REFERRALS. [facility], [address] [address], [place] [address], [id number], [place] tel:[phone] [facility] Abnormal levels of other serum enzymes 0 [facility] Johnnie. [address] [place] [address], [id number], [place]. tel:[phone] Justyn Kennedy MD. tel:[phone] erring Provider: Referral Self, USE FOR SELF REFERRALS. Telephone E&M III 21-30 Min CORRIE [facility], [address] [address], [place], [id number], [place] tel:[phone] [facility] Comment (chief complaint) NauseaHereditary hemochromatosisE levated liver enzymes 0 [facility] Johnnie. [address] [place] [address], [id number], [place]. tel:[phone] Justyn Kennedy MD. tel:[phone] erring Provider: Referral Self, USE FOR SELF REFERRALS. [facility], [address] [address], [address] [address], [id number], [place] tel:[phone] [facility] Hereditary hemochromatosis 0 No Information Justyn Kennedy MD. tel:[phone] Offic/outpt E&m Estab Low-mod [facility], [address] [address], [place], [id number], [place] tel:[phone] [facility] Comment (chief complaint) Hereditary hemochromatosis 0 No Information Justyn Kennedy MD. tel:[phone] erring Provider: Cresencio [place], [facility] [address], [place], [address]. tel:[phone] [facility], [address] [address], [place] [address], [address], [place] tel:[phone] [facility] Hereditary hemochromatosis 0 Yobani Dai. [address] [place] [address], [address], [id number], [place]. tel:[phone] Justyn Kennedy MD. tel:[phone] Offic/outpt E&m New Mod Sever [facility], [address] [address], [place], [address], [place] tel:[phone] [facility] GI Symptoms or Concerns (chief complaint) Hereditary hemochromatosisE levated liver enzymesDietary counseling and surveillanceEsse ntial (primary) hypertension 0-201 9 Yobani Dai. [address] [facility], [address], [id number], [place]. tel:[phone] Justyn Kennedy MD. tel:[phone] erring Provider: Cresencio [place], [address], [place], [address]. tel:[phone] [facility], [address] [address], [place], [address], [place] tel:[phone] [facility] No Information 9 Claudette Orantes. [address] [place] [address], [id number], [place]. tel:[phone] Offic/outpt E&m Estab Mod-hi 2 [facility], [address] [address], [place], [address], [place] tel:[phone] [facility] Abdominal pain (chief complaint) Irritable Bowel SyndromeGastroes ophageal Reflux 2 Renny Wolf. [address] [place] [address], [id number], [place]. tel:[phone] Referring Provider: Referral Self, USE FOR SELF REFERRALS. Offic/outpt E&m Estab Low-mod [facility], [address] [address], [place], [address], [place] tel:[phone] [facility] Abdominal pain (chief complaint) Irritable Bowel SyndromeNausea Alone 2 No Information Referring Provider: Johnnie Briceño, [address] [place], [address]. tel:[phone] Offic/outpt E&m Estab Mod-hi 2 [facility], [address] [address], [place], [address], [place] tel:[phone] [facility] Abdominal pain (chief complaint) Constipation Unspecified Nov-0 2 No Information Referring Provider: Johnnie Briceño, [address] [place], [address]. tel:[phone] [facility], [address] [address], [facility] [place], [id number], [place] tel:[phone] [facility] Gastroesophageal RefluxGastroduod enal Dis NosGastroduodena l Dis NosGastroesophag eal Reflux 1 Renny Wolf. [address] [place] [address], [id number], . tel:[phone] Referring Provider: Johnnie Briceño, [address] [place], [address]. tel:[phone] [facility] Digestive [facility], [address] [address], [place], [place], [address], tel:[phone] Mony Sims [facility] Diverticulosis Of Colon 7-201 1 Renny Wolf. [address] [facility] [place], [place], [id number], . tel:[phone] Referring Provider: Johnnie Briceño, [address] [place], [address]. tel:[phone] [facility] Digestive [facility], [address] [address], [place], [place], [address], tel:[phone] [facility] Colon Cancer ScreeningDiverti culosis Of Colon 2200 9 No Information Referring Provider: Johnnie Briceño, [address] [place], [address]. tel:[phone] Family History Family Member Type Diagnosis Age [...] rectional interface ; Source: Other Registry Novel [id number], all formulations administered Note: [facility]IC bi-direct ional [...] Registry Payers Payer name Insurance type Covered republican ID Authoriza tion(s) Medicare NGS MB [id number] [facility] [id number] Social History Type Description Quantity Date Captured [...] for nausea.The patient was first seen by [facility] in July 2019. At that time [...] was taken to the emergency department at [facility]. There an x-ray was performed and was [...] martha 1. Half unit phlebot shantelle at [facility]2. Call the day after the phlebotomy. [phone], ext [phone] - [place] Related to Hereditary [...] phlebotomy3. My patient coordinator is Lita, ext [phone] Related to Hereditary hemochromatosis - It is great to jose t you today!- We will get baseline labs here today!- I will get the full labs from [facility]- We need to do liver biopsy to [...]
--- OUTSIDE RECORDS SUMMARY | 2021-09-04 00:57 | XMS_ITS | Continuity of Care Document ---
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 tel:[phone] [facility], [address] [address], [place], [place], [id number], [place] tel:[phone] [facility] Hereditary hemochromatosis 1 No Information [facility], [address] [address], [place], [place], [id number], [place] tel:[phone] [facility] Hereditary hemochromatosis 1 No Information Justyn Kennedy MD. tel:[phone] [facility], [address] [address], [place], [place], [id number], [place] tel:[phone] [facility] Hereditary hemochromatosis 1 No Information Justyn Kennedy MD. tel:[phone] [facility], [address] [address], [place], [id number], [place] tel:[phone] [facility] Hereditary hemochromatosis 1 No Information [facility], [address] [address], [place], [id number], [place] tel:[phone] [facility] No Information 1 No Information [facility], [address] [address], [place], [place], [id number], [place] tel:[phone] [facility] Hereditary hemochromatosis Dec-2 0 No Information [facility], [address] [address], [place], [id number], [place] tel:[phone] [facility] Hereditary hemochromatosis Nov-3 0 0 No Information Justyn Kennedy MD. tel:[phone] [facility], [address] [address], [place], [id number], [place] tel:[phone] [facility] Hereditary hemochromatosis Jun- 0 No Information [facility], [address] [address], [place], [id number], [place] tel:[phone] [facility] Hereditary hemochromatosis May- 0 No Information [facility], [address] [address], [place], [id number], [place] tel:[phone] [facility] Hereditary hemochromatosis May- 0 No Information Telephone E&M II 11-20 Min CORRIE [facility], [address] [address], [place], [id number], [place] tel:[phone] [facility] Comment (chief complaint) Hereditary hemochromatosis Oct-0 0 No Information Justyn Kennedy MD. tel:[phone] erring Provider: Cresencio Hong MD F, [address] [place] [address], [place], [address]. tel:[phone] Telephone E&M II 11-20 Min CORRIE [facility], [address] [address], [place], [id number], [place] tel:[phone] [facility] Comment (chief complaint) Hereditary hemochromatosisN auseaWeight loss Mar- [address] [facility], [place] [address], [place], [place], [id number], [place]. tel:[phone] Justyn Kennedy MD. tel:[phone] erring Provider: Referral Self, USE FOR SELF REFERRALS. [facility], [address] [address], [place] [address], [id number], [place] tel:[phone] [facility] Erythema of gastric antrumNauseaNaus eaDisease of stomach and duodenum, unspecified 0 John Acosta. [address] [place] [address], [id number], [place]. tel:[phone] Justyn Kennedy MD. tel:[phone] erring Provider: Referral Self, USE FOR SELF REFERRALS. Telephone E&M III 21-30 Min CORRIE [facility], [address] [address], [place] [address], [id number], [place] tel:[phone] [facility] GI Symptoms or Concerns (chief complaint) Gastroesophageal reflux disease, esophagitis presence not specifiedNauseaH ereditary hemochromatosis 0 No Information Justyn Kennedy MD. tel:[phone] erring Provider: Referral Self, USE FOR SELF REFERRALS. [facility], [address] [address], [place] [address], [id number], [place] tel:[phone] [facility] Abnormal levels of other serum enzymes 0 [facility] Johnnie. [address] [place] [address], [id number], [place]. tel:[phone] Justyn Kennedy MD. tel:[phone] erring Provider: Referral Self, USE FOR SELF REFERRALS. Telephone E&M III 21-30 Min CORRIE [facility], [address] [address], [place], [id number], [place] tel:[phone] [facility] Comment (chief complaint) NauseaHereditary hemochromatosisE levated liver enzymes 0 [facility] Johnnie. [address] [place] [address], [id number], [place]. tel:[phone] Justyn Kennedy MD. tel:[phone] erring Provider: Referral Self, USE FOR SELF REFERRALS. [facility], [address] [address], [place] [address], [id number], [place] tel:[phone] [facility] Hereditary hemochromatosis 0 No Information Justyn Kennedy MD. tel:[phone] Offic/outpt E&m Estab Low-mod [facility], [address] [address], [place], [id number], [place] tel:[phone] [facility] Comment (chief complaint) Hereditary hemochromatosis 0 No Information Justyn Kennedy MD. tel:[phone] erring Provider: Cresencio Gould, [facility] [address], [place], [address]. tel:[phone] [facility], [address] [address], [place], [id number], [place] tel:[phone] [facility] Hereditary hemochromatosis 0 Yobani Dai. [address] [place] [address], [address], [id number], [place]. tel:[phone] Justyn Kennedy MD. tel:[phone] Offic/outpt E&m New Mod Sever [facility], [address] [address], [place], [id number], [place] tel:[phone] [facility] GI Symptoms or Concerns (chief complaint) Hereditary hemochromatosisE levated liver enzymesDietary counseling and surveillanceEsse ntial (primary) hypertension 0-[address] [facility], [address], [id number], [place]. tel:[phone] Justyn Kennedy MD. tel:[phone] erring Provider: Cresencio Gould, [address], [place], [address]. tel:[phone] [facility], [address] [address], [place], [id number], [place] tel:[phone] [facility] No Information 9 Claudette Orantes. [address] [place] [address], [id number], [place]. tel:[phone] Offic/outpt E&m Estab Mod-hi 2 [facility], [address] [address], [place], [id number], [place] tel:[phone] [facility] Abdominal pain (chief complaint) Irritable Bowel SyndromeGastroes ophageal Reflux 2 Renny Wolf. [address] [place] [address], [id number], [place]. tel:[phone] Referring Provider: Referral Self, USE FOR SELF REFERRALS. Offic/outpt E&m Estab Low-mod [facility], [address] [address], [place], [id number], [place] tel:[phone] [facility] Abdominal pain (chief complaint) Irritable Bowel SyndromeNausea Alone 2 No Information Referring Provider: Johnnie Briceño, [address] [place], [address]. tel:[phone] Offic/outpt E&m Estab Mod-hi 2 [facility], [address] [address], [place], [id number], [place] tel:[phone] [facility] Abdominal pain (chief complaint) Constipation Unspecified Nov-0 2 No Information Referring Provider: Johnnie Briceño, [address] [place], [address]. tel:[phone] [facility], [address] [address], [facility] [place], [id number], [place] tel:[phone] [facility] Gastroesophageal RefluxGastroduod enal Dis NosGastroduodena l Dis NosGastroesophag eal Reflux 1 Renny Wolf. [address] [place] [address], [id number], . tel:[phone] Referring Provider: Johnnie Briceño, [address] [place], [address]. tel:[phone] [facility], [address] [address], [place], [place], [id number], tel:[phone] Mony Sims [facility] Diverticulosis Of Colon 7-[address] [facility], [place], [place], [id number], . tel:[phone] Referring Provider: Johnnie Briceño, [address] [place], [address]. tel:[phone] [facility], [address] [address], [place], [place], [id number], tel:[phone] [facility] Colon Cancer ScreeningDiverti culosis Of Colon 2200 9 No Information Referring Provider: Johnnie Briceño, [address] [place], [address]. tel:[phone] Family History Family Member Type Diagnosis Age [...] rectional interface ; Source: Other Registry Novel [id number], all formulations administered Note: [facility] bi-direct ional [...] party ID Authoriza tion(s) Medicare NGS MB [id number] [facility] [id number] Social History Type Description Quantity Date Captured [...] for nausea.The patient was first seen by [facility] in July 2019. At that time [...] a consultation at the request of Dr. Cresnecio Hong who is her primary care physician.Ms. Mann is here today with her . She developed a chest pain and had extremely elevated high blood pressure on July 15, 2019, and she was taken to the emergency department at [facility]. There an x-ray was performed and [...] martha 1. Half unit phlebot shantelle at [facility]2. Call the day after the phlebotomy. [phone], ext [phone] - [place] Related to Hereditary [...] phlebotomy3. My patient coordinator is Lita, ext [phone] Related to Hereditary hemochromatosis - It is great to jose t you today!- We will get baseline labs here today!- I will [facility] the [facility]- We need to do liver biopsy to [...]
[2025-06-26 10:04] LABS: Appearance Urine Slightly Cloudy (Clear)
--- OUTSIDE RECORDS SUMMARY | 2025-06-27 00:14 | XMS_ITS | Clinical Summary ---
Author Organization [facility] Address [address] [place] [address] Care Team Providers Care Rotary Machine Operator Name Role Phone Beverley Miles MD Primary Care Provider +1- [phone] Allergies Active Allergy Reactions Criticality Noted Date [...] ventricular ejection fraction 69% 2006: inferior wall [place]--> mid RCA stent 2006: staged mid LAD [...] on file Legal Sex Female 6:13 AM POLE SHAVER Gender Identity Not on file Sexual Orientation Not on file Obstetrics History Last Filed Vital Signs Vital Sign Reading Time Taken Comments Blood Pressure 173/78 12/10/2020 12:20 PM CDT Pulse 52 06/16/2023 2:34 PM POLE SHAVER Temperature 36.8 C (98.2 F) 06/16/2023 2:34 PM POLE SHAVER Respiratory Rate 18 12/10/2020 12:20 PM CDT Oxygen Saturation 98% 06/16/2023 2:34 PM POLE SHAVER Inhaled Oxygen Concentration - - Weight 62.4 kg (137 lb 9.6 oz) 06/16/2023 2:34 P M POLE SHAVER Height 172.7 cm (5' 8) 12/09/2020 9:38 AM CDT Body Mass Index 20.92 12/09/2020 9:38 AM CDT Plan of Treatment Health Maintenance Due Date Last Done Comments Tetanus booster 1953 Depression screening for age 12+ 1954 Zoster (shingles) series for age 50+ (1 of 2) 1992 DEXA/DXA scan for age 65+ 2007 Medicare Wellness for age 65+ 2007 Pneumococcal series for age 50+ (2 of 2 - PCV) 10/21/2008 10/22/2007 RSV vaccine for adults or (1 - 1-dose 75+ series) 2017 BMI (ht and wt on same day) for age 18+ 12/09/2021 12/09/2020, 11/17/2020, 03/31/2020, Additional history exists Influenza Vaccine (#1) 2025 1, 05/08/2007, 05/20/2006 Hepatitis B series for 19+ Aged Out N o longer eligible based on patient's age to complete this topic Insurance MEDICARE PART B HB ONLY MEDICARE [...] 11:55 AM 03/09/2009 2:36 PM Care Teams Rotary Machine Operator Relationship Specialty Start Date End Date Beverley Miles MD [address] [place] [id number] PCP - General Internal Medicine 06/16/23
== END 2025-06-26 09:45 | disposition home or self-care (01) ==
LOC: NPINS 09:44
PROVIDERS: PCP Family Medicine; Visit Provider Family Medicine
DX: N39.0 Urinary tract infection, site not specified (principal)
CPT/HCPCS: 81001; 81003; 87086

== ENCOUNTER 2025-07-02 12:11 | Outpatient (REF) | payer MEDICARE, BC, SELFPAY ==
[2025-07-02 13:41] LABS: Hematocrit* 42.4 % (33.0-51.0); Hemoglobin* 13.7 gm/dL (12.0-16.0); Immature Granulocytes Abs Auto 0.02 K/uL (0.00-0.30); Immature Granulocytes Pct Auto 0.4 %; Lymphocytes Absolute Auto 0.90 K/uL (0.90-2.90); Mean Corpuscular HGB Conc 32 gm/dL (32-36); Mean Corpuscular Hemoglobin 36 pg (26-34); Mean Corpuscular Volume 111 fL (80-100); RDW Coefficient of Variation % 11.9 % (11.5-15.5); Red Blood Count* 3.82 m/uL (4.00-5.20); White Blood Count* 5.53 K/uL (4.50-11.00)
[2025-07-02 13:48] LABS: Slide Review Reflex No
[2025-07-02 14:25] LABS: Chloride* 98 mmol/L (96-114); Sodium* 135 mmol/L (135-149)
[2025-07-02 14:26] LABS: Potassium* 4.8 mmol/L (3.6-5.1)
[2025-07-02 14:28] LABS: Blood Urea Nitrogen* 22 mg/dL (7-30); Creatinine* 0.9 mg/dL (0.5-1.5); Estimated Glomerular Filt Rate 63 ml/min
[2025-07-02 14:29] LABS: Anion Gap 13 mEq/L (7-15); Calcium* 9.9 mg/dL (8.4-10.6); Carbon Dioxide* 24 mmol/L (20-32); Glucose* 99 mg/dL (60-115)
--- OUTSIDE RECORDS SUMMARY | 2025-07-03 00:16 | XMS_ITS | Clinical Summary ---
Author Organization [facility] Address [address] [place] [address] Care Team Providers Care Bench Assembly Inspector Name Role Phone Beverley Miles MD Primary Care Provider +1- [phone] Allergies Active Allergy Reactions Criticality Noted Date [...] ventricular ejection fraction 69% 2006: inferior wall [place]--> mid RCA stent 2006: staged mid LAD [...] on file Legal Sex Female 6:13 AM INTERCELL CONNECTOR PLACER Gender Identity Not on file Sexual Orientation Not on file Obstetrics History Last Filed Vital Signs Vital Sign Reading Time Taken Comments Blood Pressure 173/78 12/10/2020 12:20 PM CDT Pulse 52 06/16/2023 2:34 PM INTERCELL CONNECTOR PLACER Temperature 36.8 C (98.2 F) 06/16/2023 2:34 PM INTERCELL CONNECTOR PLACER Respiratory Rate 18 12/10/2020 12:20 PM CDT Oxygen Saturation 98% 06/16/2023 2:34 PM INTERCELL CONNECTOR PLACER Inhaled Oxygen Concentration - - Weight 62.4 kg (137 lb 9.6 oz) 06/16/2023 2:34 P M INTERCELL CONNECTOR PLACER Height 172.7 cm (5' 8) 12/09/2020 9:38 [...] 11:55 AM 03/09/2009 2:36 PM Care Teams Bench Assembly Inspector Relationship Specialty Start Date End Date Beverley Miles MD [address] [place] [address] PCP - General Internal Medicine 06/16/23
== END 2025-07-02 12:12 | disposition home or self-care (01) ==
LOC: NPINS 12:11
PROVIDERS: PCP Family Medicine; Visit Provider Family Medicine
DX: I25.10 Atherosclerotic heart disease of native coronary artery without angina pectoris (principal); E83.119 Hemochromatosis, unspecified
CPT/HCPCS: 80048; 85025

== ENCOUNTER 2025-07-17 14:19 | Outpatient (REF) | payer MEDICARE, BC, SELFPAY ==
[2025-07-17 17:24] LABS: Appearance Urine Clear (Clear)
--- OUTSIDE RECORDS SUMMARY | 2025-07-18 00:14 | XMS_ITS | Clinical Summary ---
Author Organization [facility] Address [address] [place] [address] Care Team Providers Care Metal Gauge Maker Name Role Phone Beverley Miles MD Primary Care Provider +1- [phone] Allergies Active AllergyReactionsCriticalityNoted LgivNminknlmNchaomujrjkygCajz73/03/2011 XwbewxiVqdf12/03/2011 Medications MedicationSigDispense QuantityRefillsLast FilledStart DateEnd DateStatus aspirin chewable 81 mg chewable tablet Take 162 mg by mouth at bedtime. 60 tablet ctive polyethylene glycoL (CLEARLAX) 17 gram/dose powder Take 1 scoop. by mouth once daily.Active oxyquinoline-sod.lauryl sulfat (TRIMO-BYRNE) 0.025-0.01 % vaginal gel Insert 0.5 Applicatorfuls into the vagina every Tuesday and Tuesday. At bedtimeActive omeprazole (PRILOSEC) 20 mg Delayed-Release capsule Indications:Gastroesophageal reflux disease, esophagitis presence not specified Take 1 capsule by mouth once daily before a meal. 30 capsule 07/17/2019Active Psyllium Husk-Sucrose (METAMUCIL, WITH SUGAR,) 3.4 gram/7 gram powd Take by mouth once daily. 1 tablespoonActive metoclopramide HCl (REGLAN) 5 mg/5 mL solution Take 10 mg by mouth 4 times daily before meals and at bedtime.03/04/2020Active ondansetron (ZOFRAN ODT) 4 mg disintegrating tablet Take 4 mg by mouth every 8 hours if needed.11/07/2019Active metoclopramide HCl (REGLAN) 5 mg tablet Indications:Urinary tract infection without hematuria, site unspecifiedTake 1 tablet by mouth every 6 hours if needed for Nausea/Vomiting. 15 tablet 08/09/2020ctive lidocaine 5% (Lidoderm) 5 % patch Indications:Chest wall painApply 1 patch to painful area of skin for up to 12 hours within a 24-hour period. 30 Patch ctive metoprolol tartrate (LOPRESSOR) 25 mg tablet Indications:Essential hypertension, benignTAKE ONE TABLET BY MOUTH TWICE DAILY 180 Tablet ctive nitroglycerin (NITROSTAT) 0.4 mg sublingual tablet Indications:Coronary artery disease,Elevated cholesterolPlace 1 Tablet (0.4 mg) under the tongue every 5 minutes if needed for Chest Pain. 25 Tablet ctive lisinopriL (PRINIVIL; ZESTRIL) 40 mg tablet Indications:Coronary artery diseaseTAKE ONE TABLET BY MOUTH ONE TIME DAILY 90 Tablet ctive Active Problems ProblemNoted DateDiagnosed DateEssential blpgadpnbthc70/18/2020Other gyloaedqvzjqjgq45/11/2019Vaginal vault prolapse after xmleemmqctgu23/19/2018 Overview (11/17/2020): Managed with vaginal pessary. 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) Ursppk4103/08/20096912Avcfvadcfpkr55/10/2008Coronary artery disease due to lipid rich plaque Overview (11/17/2020): Normal left ventricular ejection fraction 69% 2006: inferior wall [place]--> mid RCA stent 2006: staged mid LAD stent 2012: the LAD and RCA stents are patent stent(s) 2020: stress MRI shows no evidence of ischemia Resolved Problems ProblemNoted DateDiagnosed DateResolved DateChest pain, fcnkaqhftxz81/04/2011 11/17/2020Numbness and nsvxcilw18Obesity Overview (11/17/2020): Overview: Epic Myocardial kqhlbbromx34/04/2011 Immunizations ImmunizationAdministration DatesNext DueInfluenza A (H1N1), Inactivated (Age >=3 Years)04/22/2010Influenza, IIV3 (Age >=3 years)05/10/2011,05/08/2007,05/20/2006 Pneumococcal Poly,23-Valent (Pneumovax)10/22/2007 Family History Medical HistoryRelationNameCommentsOtherBrother 3Dennishistory of rheumatic fever, alive and well otherwiseOtherFatherAlzheimers, ParkinsonsCancerMother HypertensionMotherOsteoporosisMotherOtherSister 2deceased of tumors on brain RelationNameStatusCommentsBrother 1AliveBrother 2AliveBrother 3DennisFather DeceasedMotherDeceasedSister 1DeceasedSister 2 Social History Tobacco UseTypesPacks/DayYears UsedDateSmoking Tobacco: ClkcwjYeiypnovhp6Rswy: 08/08/1999Smokeless Tobacco: Never Tobacco Cessation:Counseling Given: Yes Alcohol UseStandard Drinks/WeekCommentsNo0 (1 standard drink = 0.6 oz pure alcohol)Social ConnectionsAnswerDate RecordedFrequency of Communication with Friends and FamilyNot on file08/08/2021Financial Resource StrainAnswerDate RecordedDifficulty of Paying Living ExpensesNot on file2Difficulty of Paying Living ExpensesNot on file2CommentsNoSex and Gender InformationValueDate RecordedSex Assigned at BirthNot on fileLegal SexFemale 08/21/2012 6:13 AM CSTGender IdentityNot on fileSexual OrientationNot on file Last Filed Vital Signs Vital SignReadingTime TakenCommentsBlood Bmwagvmf331/7805/12/2020 12:20 PM CDT Gyrgx829806/16/2023 2:34 PM BRIAqatvdakhwq48.8 ??C (98.2 ??F)06/16/2023 2:34 PM CSTRespiratory Dbyr218912/10/2020 12:20 PM CDTOxygen Sdqmjjmaxj74%06/16/2023 2:34 PM CSTInhaled Oxygen Concentration--Xkvqmn75.4 kg (137 lb 9.6 oz)06/16/2023 2:34 PM UZMGiozvv866.7 cm (5' 8)12/09/2020 9:38 AM CDTBody Mass Index20.9212/09/2020 9:38 AM CDT Plan of Treatment Health MaintenanceDue DateLast DoneCommentsTetanus xlihdcw15/11/1953Depression screening for age 12+1954Zoster (shingles) series for age 50+ (1 of 2) 1992DEXA/DXA scan for age 65+2007Medicare Wellness for age 65+ 2007Pneumococcal series for age 50+ (2 of 2 - PCV)RSV vaccine for adults or (1 - 1-dose 75+ series)2017BMI (ht and wt on same day) for age 18+/11/2020, 11/17/2020, 03/31/2020, Additional history existsCOVID-19 vaccine series ( season)509/, 12/08/2022, 04/14/2022, Additional history existsInfluenza Vaccine (#1) /10/2010, 05/08/2007, 05/20/2006Hepatitis B series for 19+Aged OutNo longer eligible based on patient's age to complete this topic Insurance * Guarantor: Petty Mike TypeRelation to PatientDate of PhoneBilling AddressPersonal/[address] [place] [address] Advance Directives * Full Code (Latest Code Status on File) Date ActivatedDate InactivatedComments01/24/2020 5:57 AM01/24/2020 6:30 PM * Full Code Date ActivatedDate WkrrmivhbuoYljvxqom52/8/2019 6:09 PM07/17/2019 6:13 PM QuestionAnswerCommentsCode Status Discussion:* Not Discussed * Full Code Date ActivatedDate InactivatedComments08/23/2011 5:55 PM08/24/2011 9:23 PM * Full Code Date ActivatedDate InactivatedComments08/10/2010 7:12 PM08/11/2010 6:57 PM * Full Code Date ActivatedDate InactivatedComments03/08/2009 11:55 AM03/09/2009 2:36 PM Care Teams Team MemberRelationshipSpecialtyStart DateEnd Date Beverley Miles MD [address] [place] [address] PCP - GeneralInternal Ksofqzrd53/9/23
== END 2025-07-17 14:20 | disposition home or self-care (01) ==
LOC: NPINS 14:19
PROVIDERS: PCP Family Medicine; Visit Provider Nurse Practitioner Gerontology
DX: I25.10 Atherosclerotic heart disease of native coronary artery without angina pectoris (principal); E83.119 Hemochromatosis, unspecified
CPT/HCPCS: 81001; 81003; 87086

== ENCOUNTER 2025-07-30 12:15 | Outpatient (REF) | payer MEDICARE, BC, SELFPAY ==
--- OUTSIDE RECORDS SUMMARY | 2021-09-04 00:57 | XMS_ITS | Continuity of Care Document ---
Author Organization [facility] Address [address] [address] [place] [address] Phone Care Team Providers Care Simulation Specialist Name Role Phone Unavailable Unavailable Unavailable Allergies, Adverse Reactions, Alerts Substance Reaction Status Criticality amitriptyline Rash Active No Information doxepin Rash Active No Information WARNIN allergy(ies) could not be collected because the type is not supported. Please contact the source practice for further details. Medications Medication Instructions Dosage Effective Dates (start - stop) Status Comments Compazine 5 mg tablet take 1 tablet by o ral route every 6 hours as neededfor nausea and vomiting 5 MG - Active lisinopril 20 mg tablet take 1 tablet by oral route every day 20 MG - Active Trimo-Baumann Jelly 0.025 %-0.01 % vaginal - Active metoclopramide 5 mg/5 mL oral solution take 5 milliliter by oral route 4 times every day 30 minutes before meals and at bedtime 5 MG - Active Miralax 17 gram oral powder packet take 1 packet by oral route every day mixed with 8 oz. water, juice, soda, coffee or tea - Active omeprazole 20 mg tablet,delayed release take 1 by oral route every day 1 - Active metoprolol tartrate 25 mg tablet take 0.5 tablet by oral route 2 times every day 12.5 MG - Active nitroglycerin 0.[address] 1 tablet by sublingual route every 5 minutes as needed for chest pain. Do not exceed 3 doses in 15 minutes. 0.4 MG - Active Aspirin Low Dose 81 mg Tab, Delayed Release take 2 tablet (162MG) by oral route every day 162 MG - Active Metamucil 3.4 gram/7 gram Oral Powder Use as directed - Active Procedures Procedure Date Telephone E&M II 11-20 Min MD CORRIE Telephone E&M II 11-20 Min MD CORRIE Ugi Endo; W/bx 1/mx Level Iv-surg Path Gross/micro Telephone E&M III 21-30 Min MD CORRIE Routine Serum Collection Alpha-fetoprotein; Serum Bld Ct; Hg & Platelet Ct Autom 20 Prothrombin Time Comp Metabolic Panel Ferritin Bilirubin; Direct Iron Iron Binding Capacity Telephone E&M III 21-30 Min MD CORRIE Offic/outpt E&m Estab Low-mod 0 Routine Serum Collection Bld Ct; Hg & Platelet Ct Autom Hepatic Function Panel Iron Iron Binding Capacity Ferritin Offic/outpt E&m New Mod Sever 9 Routine Serum Collection Bld Ct; Hg/pltlt Ct Auto/compl 19 Prothrombin Time Hepatic Function Panel Iron Iron Binding Capacity Ferritin Offic/outpt E&m Estab Mod-hi 2 12 G8447 1036F G8419 Offic/outpt E&m Estab Low-mod 2 G8447 1036F G8417 Offic/outpt E&m Estab Mod-hi 2 12 G8447 1036F G8417 G8553 Ugi Endo; W/bx 1/mx Level Iv-surg Path Gross/micro 11 Level Iv-surg Path Gross/micro 11 Colonoscopy Flex; Dx (sep Pro) 11 Colorectal Ca Scrn Not Hi Risk 09 Advance Directives Directive Yes / No Effective Date File Name No Information Encounters Encounter Description Practice Location Reason(s) For Visit Diagnoses Date Provider Providers Copied on Encounter [facility], [address] [address], [place], [place], [id number], [place] tel:[phone] [facility] No Information 2 No Information Justyn Kennedy MD. tel:[phone] [facility], [address] [address], [place], [place], [id number], [place] tel:[phone] [facility] Hereditary hemochromatosis 1 No Information [facility], [address] [address], [place], [place], [address], [place] tel:[phone] [facility] Hereditary hemochromatosis 1 No Information Justyn Kennedy MD. tel:[phone] [facility], [address] [address], [place], [place], [address], [place] tel:[phone] [facility] Hereditary hemochromatosis 1 No Information Justyn Kennedy MD. tel:[phone] [facility], [address] [address], [place], [place], [address], [place] tel:[phone] [facility] Hereditary hemochromatosis 1 No Information [facility], [address] [address], [place], [place], [address], [place] tel:[phone] [facility] No Information 1 No Information [facility], [address] [address], [place], [place], [address], [place] tel:[phone] [facility] Hereditary hemochromatosis Dec-2 0 No Information [facility], [address] [address], [place], [id number], [place] tel:[phone] [facility] Hereditary hemochromatosis Nov-3 0 0 No Information Justyn Kennedy MD. tel:[phone] [facility], [address] [address], [place], [id number], [place] tel:[phone] [facility] Hereditary hemochromatosis Jun- 0 No Information [facility], [address] [address], [place], [id number], [place] tel:[phone] [facility] Hereditary hemochromatosis May- 0 No Information [facility], [address] [address], [place], [id number], [place] tel:[phone] [facility] Hereditary hemochromatosis May- 0 No Information Telephone E&M II 11-20 Min CORRIE [facility], [address] [address], [place], [id number], [place] tel:[phone] [facility] Comment (chief complaint) Hereditary hemochromatosis Oct-0 0 No Information Justyn Kennedy MD. tel:[phone] erring Provider: Cresencio Hong MD F, [address] [place] [address], [place], [address]. tel:[phone] Telephone E&M II 11-20 Min CORRIE [facility], [address] [address], [place], [id number], [place] tel:[phone] [facility] Comment (chief complaint) Hereditary hemochromatosisN auseaWeight loss Mar- 0 Dell Dalton. [address] [facility], [place] [address], [place], [place], [address], [place]. tel:[phone] Justyn Kennedy MD. tel:[phone] erring Provider: Referral Self, USE FOR SELF REFERRALS. [facility], [address] [address], [place], [address], [place] tel:[phone] [facility] Erythema of gastric antrumNauseaNaus eaDisease of stomach and duodenum, unspecified 0 John Acosta. [address], [id number], [place]. tel:[phone] Justyn Kennedy MD. tel:[phone] erring Provider: Referral Self, USE FOR SELF REFERRALS. Telephone E&M III 21-30 Min CORRIE [facility], [address] [address], [place], [id number], [place] tel:[phone] [facility] GI Symptoms or Concerns (chief complaint) Gastroesophageal reflux disease, esophagitis presence not specifiedNauseaH ereditary hemochromatosis 0 Repton NP Anh. [address], [id number], [place]. tel:[phone] Justyn Kennedy MD. tel:[phone] erring Provider: Referral Self, USE FOR SELF REFERRALS. [facility], [address] [address], [place], [address], [place] tel:[phone] [facility] Abnormal levels of other serum enzymes 0 [facility]. [address] [place] [address], [id number], [place]. tel:[phone] Justyn Kennedy MD. tel:[phone] erring Provider: Referral Self, USE FOR SELF REFERRALS. Telephone E&M III 21-30 Min CORRIE [facility], [address] [address], [place], [address], [place] tel:[phone] [facility] Comment (chief complaint) NauseaHereditary hemochromatosisE levated liver enzymes 0 [facility]. [address], [id number], [place]. tel:[phone] Justyn Kennedy MD. tel:[phone] erring Provider: Referral Self, USE FOR SELF REFERRALS. 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 [address] [facility] [address], [place], [address], [place]. tel:[phone] Justyn Kennedy MD. 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 [address] [facility] [address], [place], [address], [place]. tel:[phone] Justyn Kennedy MD. tel:[phone] erring Provider: Cresencio Hong MD F, [address] [place] [address], [place], [address]. tel:[phone] [facility], [address] [address], [place], [place], [address], [place] tel:[phone] [facility] Hereditary hemochromatosis 0 Yobani Dai. [address] [facility] [address], [place], [address], [place]. tel:[phone] uJstyn Kennedy MD. tel:[phone] Offic/outpt E&m [facility], [address] [address], [place], [place], [address], [place] tel:[phone] [facility] GI Symptoms or Concerns (chief complaint) Hereditary hemochromatosisE levated liver enzymesDietary counseling and surveillanceEsse ntial (primary) hypertension 9 Yobani Dai. [address] [facility], [facility] [address], [place], [place], [address], [place]. tel:[phone] Justyn Kennedy MD. tel:[phone] erring Provider: Cresencio Gould, [address] [facility], [place], [address]. tel:[phone] [facility], [address] [address], [facility] [place] [facility], [address], [place] tel:[phone] [facility] No Information 9 Claudette Orantes. [address] [facility], [facility] [address], [place], [place], [address], [place]. tel:[phone] Offic/outpt E&m Estab Mod-hi 2 [facility], [address] [address], [facility], [address], [place] tel:[phone] [facility] Abdominal pain (chief complaint) Irritable Bowel SyndromeGastroes ophageal Reflux 2 Renny Wolf. [address] [facility], [facility] [address], [place], [place], [address], [place]. tel:[phone] Referring Provider: Referral Self, USE FOR SELF REFERRALS. Offic/outpt E&m Estab Low-mod [facility], [address] [address], [facility] [place], [address], [place] tel:[phone] [facility] Abdominal pain (chief complaint) Irritable Bowel SyndromeNausea Alone Nov- 2 No Information Referring Provider: Johnnie Briceño, [place], [address]. tel:[phone] Offic/outpt E&m Estab Mod-hi 2 [facility], [address] [address], [facility], [address], [place] tel:[phone] [facility] Abdominal pain (chief complaint) Constipation Unspecified 2 No Information Referring Provider: Johnnie Briceño, [address] [place], [address]. tel:[phone] [facility], [address] [address], [place], [id number], [place] tel:[phone] [facility] Gastroesophageal RefluxGastroduod enal Dis NosGastroduodena l Dis NosGastroesophag eal Reflux Renny Wolf. [address] [facility] [address], [place], [id number], [place]. tel:[phone] Referring Provider: Johnnie Briceño, [address] [place], [address]. tel:[phone] [facility], [address] [address], [place], [id number], [place] tel:[phone] [facility] Diverticulosis Of Colon Renny Wolf. [address] [facility] [address], [place], [address], [place]. tel:[phone] Referring Provider: Johnnie Briceño, [address] [place], [address]. tel:[phone] [facility], [address] [address], [place], [id number], [place] tel:[phone] [facility] Colon Cancer ScreeningDiverti culosis Of Colon 2-200 9 No Information Referring Provider: Johnnie Briceño, [place], [address]. tel:[phone] Family History Family Member Type Diagnosis Age At Onset Mother Problem (finding) Cancer, unknown Father Problem (finding) gallbladder disease Brother Problem (finding) malignant neoplasm of p harynx Son Problem (finding) Alive and well Brother Problem (finding) stroke Immunizations Vaccine Date Status Comments influenza, high dose seasona l, preservative-free administered Note: [facility] bi-direct ional interface ; Source: Other Registry tetanus toxoid, reduced diphtheria toxoid, and acellular pertussis vaccine, adsorbed administered Note: [facility] b i-directional interface ; Source: Other Registry zoster vaccine recombinant administered N ote: [facility] bi-directional interface ; Source: Other Registry influenza virus vaccine, unspecified formulation administered Note: [facility] bi-di rectional interface ; Source: Other Registry influenza, high dose seasona l, preservative-free administered Note: [facility] bi-direct ional interface ; Source: Other Registry Prevnar 13 administered Note: [facility] bi-d irectional interface ; Source: Other Registry influenza, high dose seasona l, preservative-free administered Note: [facility] bi-direct ional interface ; Source: Other Registry Pneumovax 23 administered Note: [facility] bi-d irectional interface ; Source: Other Registry influenza, high dose seasona l, preservative-free administered Note: [facility] bi-direct ional interface ; Source: Other Registry influenza virus vaccine, unspecified formulation administered Note: [facility] bi-di rectional interface ; Source: Other Registry influenza virus vaccine, unspecified formulation administered Note: [facility] bi-di rectional interface ; Source: Other Registry Novel [id number], all formulations administered Note: [facility] bi-direct ional interface ; Source: Other Registry Influenza, seasonal, injectable administe red Note: [facility] bi- directional interface ; Source: Other Registry tetanus and diphtheria toxoi ds, adsorbed, preservative free, for adult use (5 Lf of tetanus toxoid and 2 Lf of diphtheria toxoid) administered Note: [facility] bi-direct ional interface ; Source: Other Registry influenza virus vaccine, unspecified formulation administered Note: [facility] bi-di rectional interface ; Source: Other Registry influenza virus vaccine, unspecified formulation administered Note: [facility] bi-di rectional interface ; Source: Other Registry influenza virus vaccine, unspecified formulation administered Note: [facility] bi-di rectional interface ; Source: Other Registry influenza virus vaccine, unspecified formulation administered Note: [facility] bi-di rectional interface ; Source: Other Registry influenza virus vaccine, unspecified formulation administered Note: [facility] bi-di rectional interface ; Source: Other Registry tetanus and diphtheria toxoi ds, adsorbed, preservative free, for adult use (2 Lf of tetanus toxoid and 2 Lf of diphtheria toxoid) administered Note: [facility] bi-direct ional interface ; Source: Other Registry Payers Payer name Insurance type Covered democrat ID Authorshama harding(s) Medicare NGS MB [id number] [facility] [id number] Social History Type Description Quantity Date Captured Comments Alcohol Use Details Unknown Caffeine Use Details Unknown Tobacco Use Status No Information Smoking Status No Information Sex Female Chief Complaint And Reason For Visit No Information Reason For Referral Reason For Referral No Information Plan Of Treatment Date Type Action Status Goal Lifestyle education regardin g diet completed Referral Ordered: CT Abdomen And Pelvis WITH Contrast Appointment date/timeframe: 04/11/2020 [id number] Ordered: EGD Appointment date/timeframe: 03/14/2020 [id number] Ordered: follow-up visit with Anh Glass 1-2 weeks 1 Hour Appointment date/timeframe: 1-2 weeks [id number] Ordered: Hepatic Function Panel Appointment date/timeframe: 12/25/2019 [id number] Ordered: Iron/TIBC Appointment date/timeframe: 12/25/2019 [id number] Ordered: Ferritin Appointment date/timeframe: 12/25/2019 [id number] Ordered: HGB Appointment date/timeframe: 12/25/2019 [id number] Ordered: Phlebotomy Appointment date/timeframe: -today ordered History Of Present Illness Encounter Date Complaint History Of Prese nt Illness Comment This patient is seen for a televisit. Prior to beginning the visit, she agreed to have it conducted via telephone. No other person was present.This patient is followed at our office for hereditary hemochromatosis. This has been diagnosed about a year ago. 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 In her primary clinic, her ferritin was 8652. She had 2 phlebotomies. With a second phlebotomy, she became quite hypotensive and needed to be taken to the hospital. She describes a very labile blood pressure. Her ferritin has been checked at our office on 3 occasions. In July 2019 was 552, in October 2019 it was 536 and in February 2020 was 750. Her iron saturation in February was 70%. Her hemoglobin was 13.6. The patient has had some episodes of prolonged nausea leading to weight loss. Endoscopy was unremarkable. It is recommended she have evaluation by Cardiology to assess for iron deposition in her heart. The MRI did not find any evidence of iron overload. They do not seem to be Comment Daiana Espinal is a 79-year-old female with whom I am conducting a televisit with in regard to nausea and hemochromatosis.Daiana was diagnosed with hemochromatosis within the last year. She has had moderate elevation in liver enzymes and a ferritin over 8000. 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 She has undergone 2 therapeutic phlebotomy sessions, the first in mid-August, was tolerated well. Unfortunately, her second phlebotomy did not go well in September. She ended up feeling very lightheaded and passed out after this and was evaluated in the emergency room. She has been hesitant to restart phlebotomy given the side effects.Her main concern, however, more recently has been severe nausea that developed since October. Interestingly, the nausea is only nocturnal, but she states it is debilitating. It often come on at 1 a.m. and last until 5 or 6 a.m. This is causing a great difficulty and maintaining her nutrition and she went from 190 pounds to at her lowest 145 pounds GI Symptoms or Concerns Daiana Mann is evaluated through our office today via a televisit. She gave verbal consent for the visit. She was the only person other than the provider who was involved in today's visit.Daiana was last evaluated on February 07, 2020, by Dr. Becker. The patient has a history of hemochromatosis, which was diagnosed within the last 1 year. She has moderate elevation in the liver enzymes and a ferritin of 8652. Genetic testing shows she is homozygous for the C282Y mutation. The patient did undergo an initial therapeutic phlebotomy in mid August and tolerated this very well. Unfortunately, she tried to go shopping after her 2nd phlebotomy and ended up feeling very lightheaded and passed out while she was in the store. Was evaluated in the ER after that event. We have tried to get her scheduled for repeat therapeutic phlebotomy to start the de-ironing process, however, the patient has had multiple complaints since that time and is very hesitant to begin the de-ironing pro Comment Ms. Daiana silva is a 79-year-old female who presents for nausea.The patient was first seen by [facility] in July 2019. At that time she recently had been in the hospital where she was found to have ALT of 606, AST of 480, alk phos of 316, and ferritin of 8652. Hemachromatosis was suspected. She underwent genetic testing and was found to be homozygous for C2A2Y mutation. At that first visit we discussed possibly doing a FibroScan versus liver biopsy as well as doing phlebotomy. She has had the following treatment.-Phlebotomy mid August, second phlebotomy on September 06, she became lightheaded and passed out ended up in the ER.She has had no treatment since that time. She followed up with Anh Glass in October 2019. At that visit it was again discussed the importance of therapeutic phlebotomy and that we will do it every 2 to 3 weeks by monitoring her liver indices and that she should not do anything 1 to 2 days after undergoing phlebotom Comment Daiana Hernandez in presents for followup of abnormal liver enzymes, elevated ferritin, and a positive hemochromatosis genetics testing.The patient was initially evaluated in July 2019, for complaints of chest pain. She underwent x-rays and CT imaging that were negative for any acute findings. Laboratory testing done during hospitalization showed moderate elevation in the liver tests with an ALT 606 and AST 480. She was also noted to have a markedly elevated ferritin of 8652. Subsequent serum iron studies were also elevated. She then underwent hemochromatosis genetics testing, which showed she is homozygous for the C282Y mutation. She also had an MRCP, which showed iron overload in the liver. The liver otherwise had a normal morphology with no suggestion of more significant underlying liver disease.The patient did begin therapeutic phlebotomy for de-ironing. She had her first phlebotomy in mid August and apparently tolerated this very well. The second phlebotomy w GI Symptoms or Concerns Ms. Keely Mann is a very pleasant 79-year-old woman who comes to clinic in consultation regarding abnormal liver enzymes and highly elevated ferritin concerning for hemochromatosis. This is a consultation at the request of Dr. Cresencio Hong who is her primary care physician.Ms. Mann is here today with her . She developed a chest pain and had extremely elevated high blood pressure on July 15, 2019, and she was taken to the emergency department at [facility]. There an x-ray was performed and was negative. Due to concern for aortic dissection, she also had a CT of the chest, abdomen and pelvis. That imaging showed nothing really in particular except that showed she is status post cholecystectomy and hysterectomy and also had coronary artery calcifications. Otherwise, there was no evidence of aortic dissection or aneurysm.During that hospitalization, she had lab work done which I have and showed a white count of 6.0, hemoglobin of 14.7 with hemato Functional Status Date Functional Assessmen t No Information Instructions Date Instruction Additional Infor martha 1. Half unit phlebot shantelle at [facility]2. Call the day after the phlebotomy. [phone], ext [phone] - Yde Related to Hereditary hemochromatosis 1. CT scan of abdome n and pelvis.2. Zofran as needed.3. Cardiac work-up should continue.4. Phlebotomy, your needs to drive.5. Follow-up in 1 month. Related to Hereditary hemochromatosis You will need to sta rt the therapeutic phlebotomy as soon as we get the nausea symptoms under control Related to Hereditary hemochromatosis 1. Omeprazole 20 mg in the evening before dinner2. Zofran/Ondansetron 4 mg every 6 hours as needed for the nausea. Should take a dose before bedtime for sure to treat the nighttime reflux and nausea symptoms3. We will schedule you for an EGD to further evaluate the epigastric discomfort and nausea symptoms Related to Gastroesophageal reflux disease, esophagitis presence not specified 1. We will try to de termine the appropriate interval for you to have therapeutic phlebotomy without having lightheadedness or dizziness problems. Ideally we will try an interval of every 2 - 3 weeks. You need to plan to go home after your phlebotomy and rest for 24-48 hours, no shopping or going out after the phlebotomy2. Once we get your iron stores in the low normal range, we will determine the interval for your maintenance phlebotomy3. My patient coordinator is Lita, ext [phone] Related to Hereditary hemochromatosis - It is great to jose t you today!- We will get baseline labs here today!- I will get the full labs from [facility]- We need to do liver biopsy to see if you have fibrosis - You do NOT have cirrhosis (end stage liver disease)- We will start with phlebotomy to get rid of the iron and follow the liver labs and your iron store and if it does not drop to a level we like, then we will start medication - Follow up in 4 months Related to Hereditary hemochromatosis Lifestyle education regarding di et Related to Dietary counseling and surveillance Assessments Type Assessment Date No Information Patient Care Teams Name Effective Dates (start - stop) Status Members No Information
--- OUTSIDE RECORDS SUMMARY | 2025-07-31 00:19 | XMS_ITS | Clinical Summary ---
Author Organization [facility] Address [address] [place] [address] Care Team Providers Care [place] Aide Name Role Phone Beverley Miles MD Primary Care Provider +1- [phone] Allergies Active AllergyReactionsCriticalityNoted GndeMznhgmqpNypzpledxcpwxHgdq34/03/2011 KrqqvfxLrwi80/03/2011 Medications MedicationSigDispense QuantityRefillsLast FilledStart DateEnd DateStatus aspirin [...] Tablet ctive Active Problems ProblemNoted DateDiagnosed DateEssential nncgchpnufar61/18/2020Other zvhmjgnjhurtbzr05/11/2019Vaginal vault prolapse after hthmfnncwrme38/19/2018 Overview (11/17/2020): Managed with vaginal pessary. 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) Yckyhb0503/08/20098696Dyfysvkkuxxc07/10/2008Coronary artery disease due to lipid rich plaque Overview (11/17/2020): Normal left ventricular ejection fraction 69% 2006: inferior wall [place]--> mid RCA stent 2006: staged mid LAD stent 2012: the LAD and RCA stents are patent stent(s) 2020: stress MRI shows no evidence of ischemia Resolved Problems ProblemNoted DateDiagnosed DateResolved DateChest pain, qgumewbhtwp10/04/2011 11/17/2020Numbness and ibzyvxkh24Obesity Overview (11/17/2020): Overview: Epic Myocardial gnybjiwrab19/04/2011 Immunizations ImmunizationAdministration DatesNext DueInfluenza A (H1N1), Inactivated (Age >=3 Years)04/22/2010Influenza, IIV3 (Age >=3 years)05/10/2011,05/08/2007,05/20/2006 Pneumococcal Poly,23-Valent (Pneumovax)10/22/2007 Family History Medical HistoryRelationNameCommentsOtherBrother 3Dennishistory of rheumatic fever, alive and well otherwiseOtherFatherAlzheimers, ParkinsonsCancerMother HypertensionMotherOsteoporosisMotherOtherSister 2deceased of tumors on brain RelationNameStatusCommentsBrother 1AliveBrother 2AliveBrother 3DennisFather DeceasedMotherDeceasedSister 1DeceasedSister 2 Social History Tobacco UseTypesPacks/DayYears UsedDateSmoking Tobacco: MowuvuIwouwhhzjw2Mcpn: 08/08/1999Smokeless Tobacco: Never Tobacco Cessation:Counseling Given: Yes [...] Last Filed Vital Signs Vital SignReadingTime TakenCommentsBlood Zqoqanpb823/7805/12/2020 12:20 PM CDT Jnczp619006/16/2023 2:34 PM HKMEbujhvyevaw75.8 ??C (98.2 ??F)06/16/2023 2:34 PM CSTRespiratory Msyp794112/10/2020 12:20 PM CDTOxygen Oaikmzbjnu29%06/16/2023 2:34 PM CSTInhaled Oxygen Concentration--Cjlgsp33.4 kg (137 lb 9.6 oz)06/16/2023 2:34 PM CIKKwziyy457.7 cm (5' 8)12/09/2020 9:38 AM CDTBody Mass Index20.9212/09/2020 9:38 AM CDT Plan of Treatment Health MaintenanceDue DateLast DoneCommentsTetanus rphbidm87/11/1953Depression screening for age 12+1954Zoster (shingles) series for [...] Petty Mike TypeRelation to PatientDate of PhoneBilling AddressPersonal/[address] [place] [address] Advance Directives * Full Code (Latest Code Status on File) Date ActivatedDate InactivatedComments01/24/2020 5:57 AM01/24/2020 6:30 PM * Full Code Date ActivatedDate JkxnvwrresxQwifnjjq81/8/2019 6:09 PM07/17/2019 6:13 PM QuestionAnswerCommentsCode Status Discussion:* Not Discussed * Full Code Date ActivatedDate InactivatedComments08/23/2011 5:55 PM08/24/2011 9:23 PM * Full Code Date ActivatedDate InactivatedComments08/10/2010 7:12 PM08/11/2010 6:57 PM * Full Code Date ActivatedDate InactivatedComments03/08/2009 11:55 AM03/09/2009 2:36 PM Care Teams Team MemberRelationshipSpecialtyStart DateEnd Date Beverley Miles MD [address] [place] [address] PCP - GeneralInternal Jppqmihq28/9/23
== END 2025-07-30 12:16 | disposition home or self-care (01) ==
LOC: NPINS 12:15
PROVIDERS: PCP Family Medicine; Visit Provider Nurse Practitioner Gerontology
DX: E11.9 Type 2 diabetes mellitus without complications (principal)
CPT/HCPCS: 83036